=== PATIENT | female | born 1960 | race Caucasian/White ===

== ENCOUNTER 2017-12-05 07:43 | Emergency (ER) | payer BC, SELFPAY ==
[2017-12-05 07:44] VITALS: BP 164/102; PULSE 75; RESP 18; TEMP 36.3; O2SAT 96; BMI 48.0
--- NOTE | 2017-12-05 08:00 | RAD_ITS ---
STUDY: X-RAY - LEFT FOOT CLINICAL: Female, 57 years old. Lateral foot pain TECHNIQUE: 3 view(s) of the foot. COMPARISON: None. FINDINGS: There is a plantar calcaneal spur. There is mild degenerative change in the tibial talar joint. Normal visualized subtalar, talonavicular, calcaneocuboid, tarsal and tarsometatarsal articulations. On the AP view there is a subtle sclerotic appearance of the base of the fifth metatarsal not seen on other views which may represent prior fracture injury. Normal metatarsophalangeal joint of the great toe. Normal tibial and fibular sesamoid bones. Normal interphalangeal joint of the great toe. Normal phalanges of the great toe. Normal second through fifth metatarsophalangeal joints. Normal interphalangeal joints and phalanges of the lesser toes. The soft tissue structures are unremarkable. RAD/Foot min 3 Views IMPRESSION: Degenerative change. No visualized evidence of an acute fracture. Electronically Signed: Elisha Acosta MD at 8:26 EDT Tel , Service support ,
--- NOTE | 2017-12-05 08:05 | ED.VISSUMM ---
- ER Visit Summary Date of Service: 12/05/17 Chief Complaint: Left foot pain History of Present Illness: The patient is a 57 F who presents with left foot pain that began yesterday. Patient states the pain is over the lateral aspect of her left foot. Patient denies any specific trauma or injury. Patient thinks she may have twisted her foot while getting into bed. Patient admits to some swelling over the area. Patient states her pain is worse with movement of her left foot and with weightbearing. Patient states her pain improves with rest. Patient describes her pain as sharp. Patient denies any paresthesias or weakness. Physical Examination: Vital signs are stable except for mildly elevated blood pressure 164/102. Patient is afebrile. Patient is in no acute distress. Musculoskeletal exam reveals tenderness, mild edema, and mild ecchymosis over the dorsal aspect of the left foot over the distal fourth and fifth metatarsals. There is no obvious deformity noted. There is no bony crepitance or step-off. Range of motion was limited in dorsiflexion and plantarflexion of the left foot secondary to pain. Pedal pulses are equal bilaterally. There are no sensory deficits noted. Capillary refill is less than 2 seconds in all digits. The remaining physical exam is within normal limits. Test Results: X-ray of the left foot was obtained. There is no acute fracture noted. There is some mild degenerative changes noted. Emergency Department Course and Treatment: Patient was given a postop shoe. Patient was instructed to ice and elevate the left foot. Patient was instructed to use her walker as needed for help ambulating. Patient was instructed to follow-up with her primary care physician in 5-7 days. Patient understood and was agreeable with the plan. All questions were answered. Disposition: Discharged home Impression: Left foot sprain This note was generated with [employer] dictation software. It may contain incorrect words, spelling, and punctuation that were not noted in review of the chart prior to signing ED Disposition - Plan for ED Patient: Disposition: Home or Assisted Living Chief Complaint: Lower Extremity Injury Diagnosis: Sprain of left foot Instructions: ED Sprain Foot Referrals: Dominguez Vidales MD [Primary Care Provider] -
[2017-12-05 08:45] VITALS: BP 108/74; PULSE 69; RESP 15; O2SAT 98
== END 2017-12-05 08:46 | disposition home or self-care (01) ==
PROVIDERS: Emergency Provider Emergency Medicine; Family Provider Family Medicine; PCP Family Medicine
DX: S93.602A Unspecified sprain of left foot, initial encounter (principal); X58.XXXA Exposure to other specified factors, initial encounter; Y93.9 Activity, unspecified; Y92.9 Unspecified place or not applicable; I10 Essential (primary) hypertension; E11.9 Type 2 diabetes mellitus without complications; G35 Multiple sclerosis; Z79.84 Long term (current) use of oral hypoglycemic drugs; Z79.899 Other long term (current) drug therapy
CPT/HCPCS: 73630; 99283

== ENCOUNTER 2017-12-08 09:10 | Emergency (ER) | payer BC, SELFPAY ==
[2017-12-08 09:10] VITALS: BP 135/106; PULSE 84; RESP 17; TEMP 36.8; O2SAT 96; BMI 48.0
[2017-12-08 09:47] LABS: Erythrocyte Sedimentation Rate 33 mm/hr (0-30)
[2017-12-08 09:49] LABS: Absolute Lymphocyte Count 2.21 X10^3/ul (0.83-4.51); Absolute Neutrophil Count 6.9 X10^3/uL (2.0-7.7); Basophil# 0.04 X10^3/uL; Basophil% 0.4 % (0-1); Eosinophil# 0.19 X10^3/uL; Eosinophils% 1.9 % (0-5); Hematocrit 43.6 % (37-47); Hemoglobin 14.5 g/dl (12.0-15.0); Lymphocyte # 2.21 X10^3/ul (4.0); Lymphocyte % 22.2 % (19-41); Mean Corp Hgb Conc 33.3 g/gl (32-36); Mean Corpuscular Hgb 32.7 pg (27.0-32.0); Mean Corpuscular Volume 98.2 fL (81-99); Mean Platelet Vol. 11.2 fl (6.2-12.0); Monocyte# 0.61 X10^3/uL; Monocyte% 6.1 % (0-10); Neutrophil # 6.88 X10^3/uL (2.7-7.7); Neutrophil % 69.3 % (47-70); Platelet Count 361 K/mm3 (150-450); RBC Distribution Width CV 13.8 % (11.6-14.6); RBC Distribution Width SD 49.4 fl (35.1-43.9); Red Blood Count 4.44 M/mm3 (4.2-5.4); White Blood Count 9.9 K/mm3 (4.4-11.0)
[2017-12-08 09:50] LABS: POSITIVE COUNT NO; POSITIVE DIFFERENTIAL NO; POSITIVE MORPHOLOGY NO
[2017-12-08 09:55] LABS: Anion Gap 9 (5-15); BUN 13 mg/dL (7-18); BUN/Creat Ratio 13.5 RATIO (10-20); Calcium,Total 9.2 mg/dL (8.5-10.1); Chloride 100 mmol/L (98-107); Creatinine, Serum 0.96 mg/dL (0.55-1.02); EST Glomerular Filtration Rate 64 mL/min (>60); Est Glom Filt Rate - Afr Amer 77 mL/min (>60); Glucose 329 mg/dL (74-106); Potassium 4.3 mmol/L (3.5-5.1); Sodium Level 137 mmol/L (136-145); Uric Acid 6.8 mg/dL (2.6-6.0)
--- NOTE | 2017-12-08 10:25 | ED.VISSUMM ---
- ER Visit Summary Date of Service: 12/08/17 Chief Complaint: [Left foot pain] History of Present Illness: The patient is a 57 F [presents the emergency department left foot pain ?5 days. Patient was seen in the emergency department 4 days ago and had x-rays which were negative for fractures and showed some arthritic changes. Patient denies any trauma to her foot. Patient was seen 3 days ago by her primary care physician and thought the foot looked a little bit red and they start her on empirically on doxycycline for possible cellulitis. Patient states that today she noticed increased redness and swelling and does not feel like the antibiotics have made any difference and she was referred to the emergency department for possible IV antibiotics by her primary care physician. Patient denies any fevers at home. Patient is a diabetic and has a history of MS.] patient also had a venous duplex of the left lower extremity that was negative for DVT. Physical Examination: [HEENT-PERRLA, EOMI. Cranial nerves II through XII grossly intact. TMs clear. Mucous membranes moist. No adenopathy. Cardiovascular-regular rate and rhythm without murmur or ectopy Lungs-clear to auscultation, chest wall stable without crepitus or subcu emphysema Abdomen-normoactive bowel sounds, soft, nontender, no rebound or rigidity, no peritoneal signs. Extremities-intact ?4, normal range of motion, normal pulses. Left foot-patient has diffuse soft tissue swelling and edema especially over the dorsum of the foot. Patient has some faint erythema noted to the lateral aspect of the foot now extending to the medial aspect of the midfoot. Patient does have some small effusion of the ankle joint itself and some tenderness along the ankle joint as well. Patient has normal pulses. Patient has normal range of motion of all digits. There is no lymphangitic streaking. There is some warmth noted to the dorsum of the foot. Test Results: [CBC with differential obtained showed a normal white count of 9.9, hemoglobin 14, hematocrit 44, platelets 361. Chemistries unremarkable. Glucose was 329. Sed rate was elevated 33. C-reactive protein was 86. Uric acid was elevated 6.8.] Emergency Department Course and Treatment: [Case was discussed with podiatry on-call Dr. Lopez. At this point I suspect patient likely has an inflammatory arthropathy such as gout and am not convinced this is a cellulitic or infectious process. Dr. Lopez in agreement at this time and will start patient on steroids and have patient follow-up with his office tomorrow. I also discussed case with Dr. Vidales who is the patient's primary care physician and he too agrees with plan as he to obtain a uric acid level yesterday that was elevated at 7.2.] Treatment Plan: [Prednisone and follow-up with podiatry]. Patient advised to finish out her doxycycline prescription. Disposition: [Discharged home in stable condition] Impression: [Inflammatory arthropathy left foot] This note was generated with [employer] dictation software. It may contain incorrect words, spelling, and punctuation that were not noted in review of the chart prior to signing ED Disposition - Plan for ED Patient: Chief Complaint: Lower Extremity Injury Referrals: Dominguez Vidales MD [Primary Care Provider] -
--- NOTE | 2017-12-08 10:28 | ED.DEP ---
ED Disposition - Plan for ED Patient: Chief Complaint: Lower Extremity Injury Instructions: ED Arthritis Gout Prescriptions: Hydrocodone Bitart/Apap 5-325 [Ackerly 5MG-325MG] 1 tab PO Q4H PRN PRN 2 Days #10 tab PRN Reason: Pain Prednisone [Deltasone] 20 mg PO BID #10 tab Referrals: Dominguez Vidales MD [Primary Care Provider] - Raphael Lopez DPM [STAFF PHYSICIAN] - 1 Day for another exam
[2017-12-08] MEDS: predniSONE 20 MG Tablet 40 MG PO (10:34)
[2017-12-08 10:38] VITALS: BP 159/77; PULSE 77; RESP 14
== END 2017-12-08 10:41 | disposition home or self-care (01) ==
LOC: ED 09:52
PROVIDERS: Emergency Provider Emergency Medicine; Family Provider Family Medicine; PCP Family Medicine
DX: M13.872 Other specified arthritis, left ankle and foot (principal); E11.9 Type 2 diabetes mellitus without complications; G35 Multiple sclerosis; I10 Essential (primary) hypertension; Z79.84 Long term (current) use of oral hypoglycemic drugs; Z79.899 Other long term (current) drug therapy
CPT/HCPCS: 80048; 84550; 85025; 85652; 86140; 99284; A4216

== ENCOUNTER 2018-09-06 04:26 | Emergency (ER) | payer BC, MEDICAID, SELFPAY ==
[2018-09-06 04:27] VITALS: BP 189/94; PULSE 92; RESP 18; TEMP 37.2; O2SAT 93; BMI 48.4
[2018-09-06] MEDS: HYDROcodone Bitartrate/Apap 5/325 Tablet PO (04:40)
--- NOTE | 2018-09-06 04:40 | ED.DCSUM_ITS ---
History of Present Illness Chief Complaint: Ear Problem Informant: Patient Narrative: Patient presents with left ear pain since yesterday. It hurts to hear out of it. Occasionally she gets some vertigo. She is been dealing with an upper respiratory infection for the last week. Comes in for further evaluation of her ear. No home treatment. Current severity is moderate. Past Medical History - Allergies and Home Meds Allergies/Adverse Reactions: Allergies amoxicillin trihydrate [From Augmentin] Allergy (Verified 09/06/18 04:31) Rash diflunisal [From Dolobid] Allergy (Verified 09/06/18 04:31) Rash moxifloxacin HCl [From Avelox] Allergy (Verified 09/06/18 04:31) Rash potassium clavulanate [From Augmentin] Allergy (Verified 09/06/18 04:31) Rash sulfamethoxazole [From Bactrim] Allergy (Verified 09/06/18 04:31) Rash trimethoprim [From Bactrim] Allergy (Verified 09/06/18 04:31) Rash Primary Care Physician: Dominguez Vidales MD [Primary Care Provider] - Prior records reviewed: Yes Past Medical History: - - Reviewed Surgical History: noncontributory Lives: Spouse/ Significant Other Smoking Status: Never smoker Alcohol: None Drugs: None Review of Systems General: Denies: Chills, Fever, Sweats Eyes: Denies: Visual changes - bilaterally, Diplopia ENT: Reports: Left ear pain, Rhinorrhea, Sore throat Cardiovascular: Denies: Chest pain, Palpitations Respiratory: Reports: Cough. Denies: Dyspnea, Dyspnea on exertion Gastrointestinal: Denies: Abdominal pain, Nausea, Vomiting, Diarrhea, Melena, Hematochezia Genitourinary: Denies: Dysuria, Hematuria, Frequency Musculoskeletal: Denies: Back pain, Extremity Pain Skin: Denies: Rash, Wounds Neurological: Denies: Headache, Weakness, Numbness Physical Exam Vital Signs/Narrative: Vital Signs Temp Pulse Resp BP Pulse Ox 09/06/18 04:27 99 F 92 18 189/94 H 93 General: Well nourished, Well developed, No Acute Distress Head: Normocephalic, Atraumatic Eyes: Perrl, EOMI ENT: Moist mucous membranes, No rhinorrhea, - - Left TM with dullness redness and decreased landmarks consistent with acute otitis media Neck: Supple, Nontender Cardiovascular: Regular rate, Regular rhythm, No murmurs Respiratory: No distress, CTA bilaterally, Chest nontender Abdomen: Soft, Nontender, Nondistended, Normal bowel sounds Back: Nontender, Normal Inspection Extremities: Nontender, No edema Skin: Normal color, No rash Neurological: Alert, Oriented x3, Cranial nerves II-XII grossly intact, Normal Strength, Normal Sensation Psychological: Normal affect, Normal Mood Diagnostic/Tx/Re-eval - Medical Decision Making Given a prescription for Omnicef. Given 1 [place]. We will follow-up as an outpatient. At this time she has acute otitis media on top of the upper res piratory infection ED Disposition - Plan for ED Patient: Diagnosis: Acute otitis media, Upper respiratory infection Instructions: ED Otitis Media Acute Adult Prescriptions: Cefdinir [Omnicef [equiv]] 300 mg PO Q12H #14 cap Referrals: Dominguez Vidales MD [Primary Care Provider] -
[2018-09-06 04:44] VITALS: BP 181/91; PULSE 82; RESP 20; O2SAT 95
== END 2018-09-06 04:49 | disposition home or self-care (01) ==
LOC: ED 04:47
PROVIDERS: Emergency Provider Emergency Medicine; Family Provider Family Medicine; PCP Family Medicine
DX: H66.92 Otitis media, unspecified, left ear (principal); J06.9 Acute upper respiratory infection, unspecified
CPT/HCPCS: 99283

== ENCOUNTER → 2019-08-22 14:26 | Outpatient (CLI) | payer OTHER, SELFPAY ==
[2019-08-22 15:26] LABS: Hematocrit 44.7 % (37-47); Hemoglobin 15.2 g/dL (12.0-15.0); Mean Corpuscular Hgb 32.3 pg (27.0-32.0); Mean Corpuscular Volume 94.9 fL (81-99); Mean Platelet Vol. 11.6 fl (6.2-12.0); Platelet Count 357 K/mm3 (150-450); RBC Distribution Width CV 12.6 % (11.6-14.6); RBC Distribution Width SD 43.7 fl (35.1-43.9); Red Blood Count 4.71 M/mm3 (4.2-5.4); White Blood Count 9.1 K/mm3 (4.4-11.0)
[2019-08-22 15:51] LABS: Microalbumin,Random Urine 19.5 mg/L (NO RANGE EST.); Microalbumin:Creatinine Ratio 37.4 mg/g CRE (<30 mg/g CRE)
[2019-08-22 15:59] LABS: Vitamin D,25 Hydroxy 74.9 ng/mL
[2019-08-22 16:24] LABS: ALB/GLOB Ratio 0.8 RATIO (0.9-2.4); AST(SGOT) 25 U/L (15-37); Alanine Aminotransfer ALT/SGPT 32 U/L (13-56); Albumin, Serum 3.2 g/dL (3.2-5.0); Alkaline Phosphatase 89 U/L (45-117); Anion Gap 6 (5-15); BUN 9 mg/dL (7-18); Chloride 100 mmol/L (98-107); Cholesterol 183 mg/dL (200); EST Glomerular Filtration Rate 61 mL/min (>60); Est Glom Filt Rate - Afr Amer 74 mL/min (>60); Globulin 4.1 g/dL (2.2-4.2); Glucose 366 mg/dL (74-106); High Density Lipoprotein 61 mg/dL; Potassium 3.9 mmol/L (3.5-5.1); Protein, Total 7.3 g/dL (6.4-8.2); Sodium Level 134 mmol/L (136-145); Triglycerides 235 mg/dL; Very Low Density Lipoprotein 47 mg/dL (5-40)
[2019-08-22 19:19] LABS: Hemoglobin A1c 12.5 % (4.2-6.3)
[2019-08-23 08:37] LABS: PTHIN 21.3 pg/mL (18.4-80.1)
== END ==
PROVIDERS: PCP Family Medicine; Referring Provider Physician Assistant; Visit Provider Physician Assistant
DX: E78.2 Mixed hyperlipidemia (principal); E11.9 Type 2 diabetes mellitus without complications; E55.9 Vitamin D deficiency, unspecified; E83.52 Hypercalcemia; Z79.899 Other long term (current) drug therapy
CPT/HCPCS: 36415; 80053; 80061; 82043; 82306; 82330; 82570; 83036; 83970; 85027

== ENCOUNTER 2020-07-11 15:55 | Outpatient (RCR) | payer OTHER, SELFPAY ==
[2020-07-11] MEDS: COVID-19 VACC, MRNA(PFIZER)/PF 30 MCG/0.3 ML SYRINGE IM (12:46)
[2020-08-01] MEDS: COVID-19 VACC, MRNA(PFIZER)/PF 30 MCG/0.3 ML SYRINGE IM (12:27)
== END 2020-07-11 23:59 ==
LOC: IMMUN 15:55
PROVIDERS: PCP Family Medicine; Referring Provider Family Medicine; Visit Provider Family Medicine
DX: Z23 Encounter for immunization (principal)
CPT/HCPCS: 0001A; 0002A; 91300

== ENCOUNTER 2021-06-16 08:50 | Outpatient (CLI) | payer BC, SELFPAY ==
[2021-06-16 09:11] LABS: Absolute Lymphocyte Count 2.96 X10^3/uL (0.83-4.51); Absolute Neutrophil Count 5.1 X10^3/uL (2.0-7.7); Basophil# 0.07 X10^3/uL; Basophil% 0.8 % (0-1); Eosinophil# 0.29 X10^3/uL; Eosinophils% 3.2 % (0-5); Hematocrit 45.4 % (37-47); Hemoglobin 15.1 g/dL (12.0-15.0); Lymphocyte # 2.96 X10^3/ul (0.83-4.51); Lymphocyte % 32.9 % (19-41); Mean Corp Hgb Conc 33.3 g/dL (32-36); Mean Corpuscular Hgb 31.7 pg (27.0-32.0); Mean Corpuscular Volume 95.4 fL (81-99); Mean Platelet Vol. 11.5 fl (6.2-12.0); Monocyte# 0.61 X10^3/uL; Monocyte% 6.8 % (0-10); NRBC Flagged by Analyzer 0 % (0-5); Neutrophil # 5.06 X10^3/uL (2.7-7.7); Neutrophil % 56.1 % (47-70); Platelet Count 366 K/mm3 (150-450); RBC Distribution Width CV 13.2 % (11.6-14.6); RBC Distribution Width SD 46.6 fl (35.1-43.9); Red Blood Count 4.76 M/mm3 (4.2-5.4)
[2021-06-16 09:35] LABS: ALB/GLOB Ratio 0.8 RATIO (0.9-2.4); AST(SGOT) 17 U/L (15-37); Alanine Aminotransfer ALT/SGPT 28 U/L (13-56); Albumin, Serum 3.7 g/dL (3.2-5.0); Alkaline Phosphatase 96 U/L (45-117); Anion Gap 6 (5-15); BUN 15 mg/dL (7-18); BUN/Creat Ratio 16.1 RATIO (10-20); Calcium,Total 9.2 mg/dL (8.5-10.1); Chloride 100 mmol/L (98-107); Cholesterol 180 mg/dL (200); Creatinine, Serum 0.93 mg/dL (0.55-1.02); EST Glomerular Filtration Rate 65 mL/min (>60); Est Glom Filt Rate - Afr Amer 79 mL/min (>60); Globulin 4.5 g/dL (2.2-4.2); Glucose 336 mg/dL (74-106); High Density Lipoprotein 78 mg/dL; Potassium 4.1 mmol/L (3.5-5.1); Protein, Total 8.2 g/dL (6.4-8.2); Sodium Level 136 mmol/L (136-145); Triglycerides 156 mg/dL; Very Low Density Lipoprotein 31 mg/dL (5-40)
[2021-06-16 11:01] LABS: Hemoglobin A1c 12.3 % (3.8-5.6)
== END 2021-06-16 23:59 | disposition home or self-care (01) ==
PROVIDERS: PCP Family Medicine; Referring Provider Physician Assistant; Visit Provider Physician Assistant
DX: I10 Essential (primary) hypertension (principal); E11.65 Type 2 diabetes mellitus with hyperglycemia; E78.2 Mixed hyperlipidemia; E83.52 Hypercalcemia
CPT/HCPCS: 36415; 80053; 80061; 83036; 85025

== ENCOUNTER → 2021-11-24 | Outpatient (CLI) | payer BC, SELFPAY ==
[2021-11-24 09:05] LABS: Absolute Lymphocyte Count 3.07 X10^3/uL (0.83-4.51); Basophil# 0.06 X10^3/uL; Basophil% 0.6 % (0-1); Hematocrit 47.6 % (37-47); Hemoglobin 16.3 g/dL (12.0-15.0); Lymphocyte # 3.07 X10^3/ul (0.83-4.51); Lymphocyte % 30.8 % (19-41); Mean Corp Hgb Conc 34.2 g/dL (32-36); Mean Corpuscular Hgb 32.1 pg (27.0-32.0); Mean Corpuscular Volume 93.9 fL (81-99); Mean Platelet Vol. 11.7 fl (6.2-12.0); Monocyte# 0.66 X10^3/uL; Monocyte% 6.6 % (0-10); NRBC Flagged by Analyzer 0 % (0-5); Neutrophil # 6.02 X10^3/uL (2.7-7.7); Neutrophil % 60.5 % (47-70); Platelet Count 357 K/mm3 (150-450); RBC Distribution Width CV 12.5 % (11.6-14.6); RBC Distribution Width SD 43.1 fl (35.1-43.9); Red Blood Count 5.07 M/mm3 (4.2-5.4)
[2021-11-24 09:40] LABS: Microalbumin,Random Urine 82.4 mg/L (NO RANGE EST.); Microalbumin:Creatinine Ratio 137.8 mg/g CRE (<30 mg/g CRE)
[2021-11-24 09:47] LABS: Vitamin D,25 Hydroxy 89.1 ng/mL
[2021-11-24 09:54] LABS: Hemoglobin A1c > 14.0 % (3.8-5.6)
[2021-11-24 10:05] LABS: ALB/GLOB Ratio 0.9 RATIO (0.9-2.4); AST(SGOT) 13 U/L (15-37); Alanine Aminotransfer ALT/SGPT 22 U/L (13-56); Albumin, Serum 3.6 g/dL (3.2-5.0); Alkaline Phosphatase 81 U/L (45-117); Anion Gap 5 (5-15); BUN 28 mg/dL (7-18); BUN/Creat Ratio 23.9 RATIO (10-20); Calcium,Total 9.7 mg/dL (8.5-10.1); Chloride 99 mmol/L (98-107); Creatinine, Serum 1.17 mg/dL (0.55-1.02); EST Glomerular Filtration Rate 50 mL/min (>60); Est Glom Filt Rate - Afr Amer 61 mL/min (>60); Globulin 4.2 g/dL (2.2-4.2); Glucose 495 mg/dL (74-106); Potassium 4.4 mmol/L (3.5-5.1); Protein, Total 7.8 g/dL (6.4-8.2); Sodium Level 133 mmol/L (136-145)
== END | disposition home or self-care (01) ==
LOC: PAVLAB 08:41
PROVIDERS: PCP Family Medicine; Visit Provider Family Medicine
DX: G35 Multiple sclerosis (principal); E11.9 Type 2 diabetes mellitus without complications; H53.2 Diplopia; E55.9 Vitamin D deficiency, unspecified
CPT/HCPCS: 36415; 80053; 82043; 82306; 82570; 83036; 85025

== ENCOUNTER 2022-03-07 16:48 | Emergency (ER) | payer MEDICARE, SELFPAY ==
[2022-03-07 16:50] VITALS: BP 178/80; PULSE 92; RESP 16; TEMP 36.6; O2SAT 99; BMI 41.1
--- NOTE | 2022-03-07 17:41 | ED.VIS.BACK ---
HPI History of Present Illness Chief Complaint: Back Informant: patient Narrative Narrative: Patient states for the last 2 or so weeks she has been having pain in her right buttock that will sometimes shoot down the posterior lateral aspect of her right leg to right about her knee. She states this is typical of her sciatica. She has not had any fall or acute trauma. No fevers or chills. No cancer. She is actually not having pain in her back even. No bowel or bladder dysfunction. No weakness. She states sitting is generally a good position. She can only lay down and get sleep for about 2 hours though. She states this started after she has been helping her . He had a distal femur fracture. She has been using a physical therapy strap to help pull him up out of bed, seating position and get up the steps to their house. She states this has been a lot of activity for her. She also did some work in the garden that aggravated this. No numbness tingling weakness bowel or bladder dysfunction. PFSH PFSH Home Medications Cholecalciferol (Vitamin D3) [Vitamin D3] 10,000 units PO DAILY 02/22/15 [History Last Taken 12/08/17] atenolol 100 mg tablet 100 mg PO DAILY 02/22/15 [History Last Taken 12/08/17] lisinopril 5 mg tablet 40 mg PO DAILY 02/22/15 [History Last Taken 12/08/17] metformin 500 mg tablet 1,000 mg PO BID 02/22/15 [History Last Taken 12/08/17] cefdinir 300 mg capsule 300 mg PO Q12H #14 caps 09/06/18 [Rx Last Taken Unknown] liraglutide 0.6 mg/0.1 mL (18 mg/3 mL) subcutaneous pen injector (Victoza 2-Miguel) 1.8 ml SQ DAILY 09/06/18 [History Last Taken Unknown] oxycodone-acetaminophen 5 mg-325 mg tablet (Percocet) 1 tab PO Q6H PRN pain 3 days #10 tabs 03/07/22 [Rx Last Taken Unknown] prednisone 20 mg tablet 60 mg PO DAILY #15 tabs 03/07/22 [Rx Last Taken Unknown] Allergy/AdvReac Type Severity Reaction Status Date / Time amoxicillin trihydrate Allergy Rash Verified 03/07/22 16:50 [From Augmentin] diflunisal [From Dolobid] Allergy Rash Verified 03/07/22 16:50 moxifloxacin HCl Allergy Rash Verified 03/07/22 16:50 [From Avelox] potassium clavulanate Allergy Rash Verified 03/07/22 16:50 [From Augmentin] sulfamethoxazole Allergy Rash Verified 03/07/22 16:50 [From Bactrim] trimethoprim [From Bactrim] Allergy Rash Verified 03/07/22 16:50 Social History Smoking Status: Never smoker ROS ROS ED Constitutional Constitutional ED: Denies chills or fever(s) Eyes Eyes: Reports other Details: Patient states her MS flares usually involve vision changes and she is not having those now. ; Denies blurry vision ENT ENT ED: Denies sore throat Cardiovascular Cardiovascular: Denies palpitations Respiratory/Chest Respiratory/Chest: Denies dyspnea Gastrointestinal Gastrointestinal: Reports other Details: No incontinence. ; Denies abdominal pain, constipation, diarrhea, melena, nausea or vomiting Genitourinary Genitourinary ED: Reports other Details: No incontinence or any change in urination or retention. ; Denies dysuria, hematuria or urinary frequency Musculoskeletal Musculoskeletal: Reports other Details: No lumbar pain. See history of present illness. ; Denies back pain Integumentary Denies Abrasions Neurologic Neurologic: Reports other Details: See HPI ; Denies headache(s), paresthesias or weakness Endocrine Endocrinology: Denies polydipsia or polyuria Hematologic/Lymphatic Hematologic/Lymphatic: Denies easy bleeding or easy bruising Allergic/Immunologic Allergic/Immunologic ED: Denies urticaria EXAM Physical Exam Const Vital Signs: 03/07/22 16:50 Temperature 97.8 F Temperature Source Temporal Pulse Rate 92 Respiratory Rate 16 Blood Pressure 178/80 H Blood Pressure Mean 112 Pulse Ox 99 Oxygen Delivery Method Room Air Positive well nourished and well developed General Appearance ED: well developed and NAD HEENT Reports moist mucous membranes Eyes General Eye ED: Negative for pale conjunctiva or scleral icterus Resp normal respiratory effort and clear to auscultation bilaterally Cardio regular rate and regular rhythm GI normal to inspection, nondistended, normoactive bowel sounds GI Narrative: No abdominal tenderness. No mass. No change in symptoms with palpation. Narrative: No CVA tenderness. Back/Spine normal to inspection Back/Spine Narrative: No back or paraspinal tenderness. She does have right-sided buttock tenderness and sciatic notch. Extremity normal to inspection Extremity Narrative: Patient states she has been getting a little swelling in her feet and ankles. They do look a little full but they are not pitting. This is likely due to sitting upright in a chair much more than normal. There is no swelling or tenderness up into the calf. No cords. She does have pain with straight leg raise on the right. It radiates down the back of her thigh to the knee but not lower. Reflexes and sensation and strength are intact distally. Neuro no sensory deficits noted Sensorium / Orientation: alert Motor Exam: strength 5/5 throughout Psych mental status grossly normal Skin no rashes or lesions noted and no wounds Trauma: Negative for abrasion MDM MDM MDM Narrative Medical decision making narrative: We discussed options of x-rays. I do not think these are needed. She has a couple weeks of pain that is reproduced with certain motions and positions. It radiates down the back. She has a history of sciatica. She is not getting good sleep. She still has to help her at the house although the in the next 2 weeks he will be back to independent duty and actions. She has tolerated steroids in the past for her MS. I will try a short burst of steroids to see if that helps. I will write her for pain meds mostly for using at night. We discussed follow-up and return Discharge Plan Triage Chief Complaint: Back ED Provider: Isai Green Dx/Rx/DC Orders Clinical Impression: Right sided sciatica Instructions: ED Sciatica Prescriptions: New prednisone 20 mg tablet 60 mg PO DAILY Qty: 15 0RF oxycodone-acetaminophen [Percocet] 5-325 mg tablet 1 tab PO Q6H PRN (Reason: pain) 3 Days Qty: 10 0RF No Action metformin 500 MG tablet 1,000 mg PO BID atenolol 100 MG tablet 100 mg PO DAILY lisinopril 5 MG tablet 40 mg PO DAILY Cholecalciferol (Vitamin D3) [Vitamin D3] 5,000 UNIT capsule 10,000 units PO DAILY Victoza 2-Miguel 0.6 MG/0.1 ML pen injector 1.8 ml SQ DAILY Label Comments: Inject 1.8 mg subcutaneously once daily. cefdinir 300 MG capsule 300 mg PO Q12H Qty: 14 0RF Primary Care Provider: Dominguez Vidales Referrals: Dominguez Vidales MD [Primary Care Provider] - 3-5 Days if not improving Disposition Disposition: Home, Self Care
== END 2022-03-07 18:58 | disposition home or self-care (01) ==
PROVIDERS: Emergency Provider Emergency Medicine; PCP Family Medicine; Visit Provider Emergency Medicine
DX: M54.31 Sciatica, right side (principal); Z79.84 Long term (current) use of oral hypoglycemic drugs; Z79.899 Other long term (current) drug therapy
CPT/HCPCS: 99281; 99282

== ENCOUNTER → 2022-04-02 | Outpatient (CLI) | payer MEDICARE, SELFPAY ==
--- NOTE | 2022-04-02 11:40 | RAD_ITS ---
STUDY: X-RAY - LUMBOSACRAL SPINE REASON FOR EXAM: Female, 61 years old. RADICULOPATHY TECHNIQUE: 7 view(s) of the lumbosacral spine were obtained. COMPARISON: None FINDINGS: Normal lumbar lordosis. There is no substantial scoliosis. Grade 1 L4-5 anterolisthesis does not significantly change in flexion or extension. There is multilevel endplate spondylosis of the lumbar vertebrae. There is multi-level degenerative disc disease with multi-level disc space narrowing. Normal bilateral sacral ala, sacroiliac joints, and visualized sacrum. Normal visualized soft tissue structures. RAD/L/S Spine Bending Flex/Ext IMPRESSION: Grade 1 L5 anterolisthesis without finding of dynamic instability. Multilevel degenerative disc and endplate disease. Electronically Signed: Deepak Starkey MD at 19:35 EST ,
== END | disposition home or self-care (01) ==
LOC: RAD 11:34
PROVIDERS: PCP Family Medicine; Referring Provider Psychiatry & Neurology Neurology; Visit Provider Psychiatry & Neurology Neurology
DX: M54.41 Lumbago with sciatica, right side (principal); M54.16 Radiculopathy, lumbar region
CPT/HCPCS: 72120

== ENCOUNTER 2022-07-01 03:58 | Emergency (ER) | payer MEDICARE, SELFPAY ==
[2022-07-01 04:00] VITALS: BP 184/94; PULSE 77; RESP 15; TEMP 35.9; O2SAT 99; BMI 41.6
--- NOTE | 2022-07-01 05:20 | EX.ED.DYSGE1 ---
HPI History of Present Illness Chief Complaint: Other, Pain/Inj Narrative Narrative: Patient is a 62-year-old female who has a history of hypertension and diabetes. She states she has been dealing with right hip pain for about 5 months. She states she was recently told this was sciatica. She states that she typically will use a walker and cane to help with ambulation. However a few days ago she felt much better and was able to go out and walk around without any type of assistance. She states the next day she felt pain in her right hip that was worse with any type of weightbearing and improved while at rest. She states that now she has pain whether she is weightbearing or even just sitting. She denies any trauma any overlying skin discoloration or rashes and any numbness or tingling but states she has been trying [id number] medication without symptom improvement and therefore comes in for evaluation. [facility] Medical History (Updated 07/01/22 @ 05:[address] Tomás Lester, DO) Diabetes Hypertension Multiple sclerosis Home Medications Cholecalciferol (Vitamin D3) [Vitamin D3] 10,000 units PO DAILY 02/22/15 [History Last Taken 12/08/17] atenolol 100 mg tablet 100 mg PO DAILY 02/22/15 [History Last Taken 12/08/17] lisinopril 5 mg tablet 40 mg PO DAILY 02/22/15 [History Last Taken 12/08/17] metformin 500 mg tablet 1,000 mg PO BID 02/22/15 [History Last Taken 12/08/17] glimepiride 4 mg tablet 4 mg PO BID 07/01/22 [History Last Taken Unknown] hydroxyzine pamoate 25 mg capsule 25 mg PO DAILY 07/01/22 [History Last Taken Unknown] insulin detemir U-100 100 unit/mL (3 mL) subcutaneous pen (Levemir FlexPen) 40 unit subcut QHS 07/01/22 [History Last Taken Unknown] methocarbamol 500 mg tablet 500 mg PO 4X/DAY PRN PRN Muscle pain/spasm #40 tabs 07/01/22 [Rx Last Taken Unknown] oxycodone-acetaminophen 5 mg-325 mg tablet (Endocet) 1 tab PO Q6H PRN pain 3 days #12 tabs 07/01/22 [Rx Last Taken Unknown] pravastatin 20 mg tablet 20 mg PO QHS 07/01/22 [History Last Taken Unknown] prednisone 20 mg tablet 40 mg PO DAILY 5 days #10 tabs 07/01/22 [Rx Last Taken Unknown] sertraline 50 mg tablet 50 mg PO QHS 07/01/22 [History Last Taken Unknown] tizanidine 2 mg tablet 2 mg PO TID 07/01/22 [History Last Taken Unknown] Allergy/AdvReac Type Severity Reaction Status Date / Time amoxicillin trihydrate Allergy Rash Verified 03/07/22 16:50 [From Augmentin] diflunisal [From Dolobid] Allergy Rash Verified 07/01/22 04:05 moxifloxacin HCl Allergy Rash Verified 07/01/22 04:05 [From Avelox] potassium clavulanate Allergy Rash Verified 07/01/22 04:05 [From Augmentin] sulfamethoxazole Allergy Rash Verified 07/01/22 04:05 [From Bactrim] trimethoprim [From Bactrim] Allergy Rash Verified 07/01/22 04:05 Social History Smoking Status: Never smoker ROS ROS ED Constitutional Constitutional ED: Denies chills or fever(s) ENT ENT ED: Denies sore throat Cardiovascular Cardiovascular: Denies chest pain Respiratory/Chest Respiratory/Chest: Denies cough or dyspnea Gastrointestinal Gastrointestinal: Denies abdominal pain, diarrhea, nausea or vomiting Genitourinary Genitourinary ED: Denies dysuria or hematuria Musculoskeletal Musculoskeletal: Reports other Details: Positive right hip pain ; Denies back pain or myalgias Integumentary Denies Abrasions or rash Neurologic Neurologic: Denies headache(s) or paresthesias Hematologic/Lymphatic Hematologic/Lymphatic: Denies easy bleeding or easy bruising EXAM Physical Exam Const Vital Signs: 07/01/22 04:00 Temperature 96.7 F L Temperature Source Temporal Pulse Rate 77 Respiratory Rate 15 Blood Pressure 184/94 H Blood Pressure Mean 124 Pulse Ox 99 Oxygen Delivery Method Room Air Positive well nourished, well developed and obese General Appearance ED: well developed Nutritional Appearance: obese Eyes PERRL and EOMs intact bilaterally Neck supple Resp normal respiratory effort and clear to auscultation bilaterally Cardio regular rate and regular rhythm Rate: other Other Details: Radial pulses are plus 2 out of 4 bilaterally are equal and symmetric GI normal to inspection, nondistended, normoactive bowel sounds, non-tender, non-distended and no masses GI Narrative: No voluntary guarding or rigidity no pulsatile mass Auscultation: normoactive bowel sounds Palpation: soft Back/Spine Back/Spine Narrative: No bony deformity or step-off of the thoracic or lumbar spine no midline pain with palpation. There is pain on palpation in the right sacroiliac joint. No saddle anesthesia. Negative straight leg raise. No clonus or Babinski. Patellar reflexes are plus 1 out of 4 bilaterally. Extremity Extremity Narrative: There is pain with palpation over top the right greater trochanter region without over the line soft tissue changes to suggest trauma or infection. No bony deformity or joint effusion noted either Neuro oriented x3 and CN's II-XII intact bilaterally Sensorium / Orientation: alert Psych mental status grossly normal Skin no rashes or lesions noted MDM MDM MDM Narrative Medical decision making narrative: Patient presented to the ER mildly hypertensive otherwise with stable vitals. She states she has had this pain for multiple months and that it improved and then worsened after her day of physical activity without using her assistive device. By exam she does not have overlying soft tissue changes to suggest infection such as cellulitis or abscess. As she is afebrile I do not feel that there is concern for septic joint either. She has no signs of cauda equina or epidural abscess. At this time I do feel symptoms are multifactorial most likely related to her obesity as well as developing right greater trochanteric bursitis and mild derangement to her sacroiliac joint. We discussed possible x-rays of her hip and even a CT of her low back to look for radiculopathy/nerve impingement. Patient states she had an x-ray done by her family doctor not too long ago and reportedly it was normal. As there is no radiation of the pain nor the fact that it does not follow dermatomal pattern goes against radiculopathy. Therefore I do not feel there is need for imaging studies at this time. Patient will be given symptomatic care and will follow-up with her orthopedic surgeon to discuss need for further testing or treatment options. Plan of care was discussed with the patient and and both are agreeable to it. History & Record Review Discussion w/independent historian: Patient and Significant other Discharge Plan Triage Chief Complaint: Other, Pain/Inj ED Provider: Tomás Lester Dx/Rx/DC Orders Clinical Impression: Greater trochanteric bursitis of right hip, Sacroiliac joint dysfunction Instructions: Anatomy of the Sacroiliac Joint, ED Bursitis Prescriptions: New oxycodone-acetaminophen [Endocet] 5-325 mg tablet 1 tab PO Q6H PRN (Reason: pain) 3 Days Qty: 12 0RF prednisone 20 mg tablet 40 mg PO DAILY 5 Days Qty: 10 0RF methocarbamol 500 mg tablet 500 mg PO 4X/DAY PRN PRN (Reason: Muscle pain/spasm) Qty: 40 0RF No Action metformin 500 MG tablet 1,000 mg PO BID atenolol 100 MG tablet 100 mg PO DAILY lisinopril 5 MG tablet 40 mg PO DAILY Cholecalciferol (Vitamin D3) [Vitamin D3] 5,000 UNIT capsule 10,000 units PO DAILY glimepiride 4 mg Tablet 4 mg PO BID hydroxyzine pamoate 25 mg capsule 25 mg PO DAILY Label Comments: TAKE 1 CAPSULE BY MOUTH THREE TIMES DAILY NEEDED FOR ANXIETY. sertraline 50 mg tablet 50 mg PO QHS Label Comments: TAKE 1/2 TAB BY MOUTH ONCE DAILY FOR ONE WEEK THEN 1 TAB ONCE A DAY pravastatin 20 mg tablet 20 mg PO QHS Levemir FlexPen 100 unit/mL (3 mL) insulin pen 40 unit SUBCUT QHS Label Comments: INJECT 30 UNITSCSUBCUTANEOUSLY DAILY AT BEDTIME tizanidine 2 mg tablet 2 mg PO TID Label Comments: TAKE 1 TAB BY MOUTH IN THE MORNING, 1 TAB AT NOON, AND 1 TAB BEFORE BEDTIME FOR 30 DAYS Primary Care Provider: Dominguez Vidales Referrals: Dominguez Vidales MD [Primary Care Provider] - Activity Restrictions/Additional Instructions: Please follow-up with the orthopedic surgeon to discuss possible joint injections and or further work-up such as CAT scan or MRI. I believe your symptoms are related to a combination of of bursitis along with sacroiliac joint dysfunction and possible spasm of your piriformis muscle. Take the medication as directed to help control the symptoms and return to the ER should you have any further concerns Disposition Disposition: Home, Self Care Discharge Date/Time: 07/01/22 06:26
[2022-07-01] MEDS: Ondansetron ODT 4 MG Tablet PO (05:31)
[2022-07-01] MEDS: dexAMETHasone 10 MG/ML Vial PO.IVFORM (05:31)
[2022-07-01] MEDS: Morphine 4 MG/ML Syringe 6 MG IM (05:31)
[2022-07-01] MEDS: Orphenadrine 60 MG/2 ML Ampul IM (05:31)
== END 2022-07-01 06:26 | disposition home or self-care (01) ==
PROVIDERS: Emergency Provider Emergency Medicine; PCP Family Medicine; Visit Provider Emergency Medicine
DX: M70.61 Trochanteric bursitis, right hip (principal); G35 Multiple sclerosis; E11.9 Type 2 diabetes mellitus without complications; Z79.4 Long term (current) use of insulin; I10 Essential (primary) hypertension; E66.9 Obesity, unspecified; Z79.899 Other long term (current) drug therapy; Z79.84 Long term (current) use of oral hypoglycemic drugs
CPT/HCPCS: 96372; 99282

== ENCOUNTER 2022-07-25 09:29 | Emergency (ER) | payer MEDICARE, SELFPAY ==
[2022-07-25 09:29] VITALS: BP 157/87; PULSE 90; RESP 14; TEMP 36.6; O2SAT 100; BMI 40.3
--- NOTE | 2022-07-25 10:13 | EDS_ITS ---
HPI <FIDELINA Lobato - Last Filed: 07/25/22 11:39> History of Present Illness Chief Complaint: Eye Problem Narrative Narrative: Presenting today with a flare of optic neuritis in her left eye that started yesterday. She reports eye pain, photophobia, and decreased visual acuity. She states that she has had this 4-5 times in the left eye in the past and has a history of MS. She reports she called her neurologist this morning who told her to come to the emergency department for treatment. Patient sees Dr. Easton a neurologist at [facility]. PMH includes hypertension, diabetes mellitus, and MS. She denies any fever, chills, chest pain, shortness of breath. PFSH <FIDELINA Lobato - Last Filed: 07/25/22 11:39> PFSH Medical History Diabetes Hypertension Multiple sclerosis Home Medications Cholecalciferol (Vitamin D3) [Vitamin D3] 10,000 units PO DAILY 02/22/15 [History Last Taken 12/08/17] atenolol 100 mg tablet 100 mg PO DAILY 02/22/15 [History Last Taken 12/08/17] lisinopril 5 mg tablet 40 mg PO DAILY 02/22/15 [History Last Taken 12/08/17] metformin 500 mg tablet 1,000 mg PO BID 02/22/15 [History Last Taken 12/08/17] glimepiride 4 mg tablet 4 mg PO BID 07/01/22 [History Last Taken Unknown] hydroxyzine pamoate 25 mg capsule 25 mg PO DAILY 07/01/22 [History Last Taken Unknown] insulin detemir U-100 100 unit/mL (3 mL) subcutaneous pen (Levemir FlexPen) 40 unit subcut QHS 07/01/22 [History Last Taken Unknown] methocarbamol 500 mg tablet 500 mg PO 4X/DAY PRN PRN Muscle pain/spasm #40 tabs 07/01/22 [Rx Last Taken Unknown] oxycodone-acetaminophen 5 mg-325 mg tablet (Endocet) 1 tab PO Q6H PRN pain 3 days #12 tabs 07/01/22 [Rx Last Taken Unknown] pravastatin 20 mg tablet 20 mg PO QHS 07/01/22 [History Last Taken Unknown] prednisone 20 mg tablet 40 mg PO DAILY 5 days #10 tabs 07/01/22 [Rx Last Taken Unknown] sertraline 50 mg tablet 50 mg PO QHS 07/01/22 [History Last Taken Unknown] tizanidine 2 mg tablet 2 mg PO TID 07/01/22 [History Last Taken Unknown] prednisone 20 mg tablet 40 mg PO DAILY 7 days #14 tabs 07/25/22 [Rx Last Taken Unknown] Allergy/AdvReac Type Severity Reaction Status Date / Time amoxicillin trihydrate Allergy Rash Verified 07/25/22 09:31 [From Augmentin] diflunisal [From Dolobid] Allergy Rash Verified 07/25/22 09:31 moxifloxacin HCl Allergy Rash Verified 07/25/22 09:31 [From Avelox] potassium clavulanate Allergy Rash Verified 07/25/22 09:31 [From Augmentin] sulfamethoxazole Allergy Rash Verified 07/25/22 09:31 [From Bactrim] trimethoprim [From Bactrim] Allergy Rash Verified 07/25/22 09:31 Social History Smoking Status: Never smoker ROS <FIDELINA Lobato - Last Filed: 07/25/22 11:39> ROS ED Constitutional Constitutional ED: Denies chills, fever(s) or sweats Eyes Eyes: Reports blurry vision, change in vision and eye pain; Denies diplopia Cardiovascular Cardiovascular: Denies chest pain or palpitations Respiratory/Chest Respiratory/Chest: Denies cough or dyspnea Gastrointestinal Gastrointestinal: Denies abdominal pain, nausea or vomiting Musculoskeletal Musculoskeletal: Denies arthralgias, back pain, myalgias or neck pain Integumentary Denies abscess, Abrasions or rash Neurologic Neurologic: Denies weakness Psychiatric Psychiatric: Denies anxiety, depression, suicidal ideation or suicidal thoughts EXAM <FIDELINA Lobato - Last Filed: 07/25/22 11:39> Physical Exam Const Vital Signs: 07/25/22 09:29 Temperature 97.9 F Temperature Source Temporal Pulse Rate 90 Respiratory Rate 14 Blood Pressure 157/87 H Blood Pressure Mean 110 Pulse Ox 100 Oxygen Delivery Method Room Air Positive well nourished, well developed and no apparent distress General Appearance ED: well developed HEENT Reports normocephalic and head/scalp atraumatic Mouth ED: Yes moist mucous membranes normal Eyes PERRL and EOMs intact bilaterally Eyes Narrative: Left corneal injection, no periorbital edema. Neck full ROM and supple Chest Wall inspection of chest normal Resp normal respiratory effort and clear to auscultation bilaterally Cardio regular rate and regular rhythm GI soft to palpation, non-tender, non-distended and no masses Back/Spine normal ROM and normal to inspection Extremity normal to inspection and full ROM Neuro oriented x3, CN's II-XII intact bilaterally, moves all extremities, no focal motor deficits and no sensory deficits noted Sensorium / Orientation: awake and alert Psych mental status grossly normal and thought process normal Skin no rashes or lesions noted and no wounds [facility] <FIDELINA Lobato - Last Filed: 07/25/22 11:39> [facility] Narrative Medical decision making narrative: Presenting with a flare of optic neuritis in her left eye. She states this feels exactly like her usual flare-up. She states that when this happens she generally gets a prescription for prednisone and gets IV steroids in the em ergency department. I will attempt to get a hold of patient's neurologist. I have spoke to Dr. Easton, patient's neurologist, and he suggests 1000 mg IV Solu- Medrol here and to discharge patient home on steroids, he will try to see her in the office soon. She will be discharged home on prednisone 40 mg for the next 7 days. She will be discharged home in stable condition and is comfortable with plan. She has been given return precautions. I have personally performed a face to face assessment of the patient and have reviewed the PRERNA Note. I performed a substantive portion of the visit including all aspects of the following. My brown findings include: History is [patient presents to the emergency department with discomfort to the left eye and decreased vision that started yesterday gradually. Patient states that she has MS and has had a history of optic neuritis and has had this happen in the past. This is probably her fourth episode. Patient states that she normally gets steroids for this. Patient states she called her neurologist who advised her to come to the ER to get IV steroids. She denies any trauma to her eye. She denies recent illness. Patient complains of pain with eye movement.] Exam is [HEENT-PERRLA, EOMI. Cranial nerves II through XII grossly intact. TMs clear. Mucous membranes moist. No adenopathy. Left eye-pupil is reactive and about 5 mm. No significant conjunctival erythema noted. Extraocular muscle movement is normal without evidence of entrapment. There is no erythema around the orbit. No evidence of trauma. Funduscopic exam-no evidence of flame hemorrhages or vitreal hemorrhage. No evidence of acute abnormality. Cardiovascular-regular rate and rhythm without murmur or ectopy Lungs-clear to auscultation, chest wall stable without crepitus or subcu emphysema Abdomen-normoactive bowel sounds, soft, nontender, no rebound or rigidity, no peritoneal signs. Extremities-intact ?4, normal range of motion, normal pulses, atraumatic] Medical Decison Making [patient seen in conjunction with PA. We discussed case with Dr. Easton who is patient's neurologist. We were asked to give patient 1000 mg of Solu-Medrol IV. We will also treat her with prednisone 40 mg a day for neck 7 days and he can follow her up in the office. This presentation is typical for patient's optic neuritis.] Other additions or changes: [None] <Dr. Radha Luke, DO - Last Filed: 07/25/22 11:19> [facility] Narrative Medical decision making narrative: Presenting with a flare of optic neuritis in her left eye. She states that when this happens she generally gets a prescription for prednisone and gets IV steroids in the emergency department. I will attempt to get a hold of patient's neurologist. I have spoke to Dr. Easton, patient's neurologist, and he suggests 1000 mg IV Solu-Medrol and to discharge patient home on a Medrol Dosepak and he will try to see her in the office soon. I have personally performed a face to face assessment of the patient and have reviewed the PRERNA Note. I performed a substantive portion of the visit including all aspects of the following. My brown findings include: History is [patient presents to the emergency department with discomfort to the left eye and decreased vision that started yesterday gradually. Patient states that she has MS and has had a history of optic neuritis and has had this happen in the past. This is probably her fourth episode. Patient states that she normally gets steroids for this. Patient states she called her neurologist who advised her to come to the ER to get IV steroids. She denies any trauma to her eye. She denies recent illness. Patient complains of pain with eye movement.] Exam is [HEENT-PERRLA, EOMI. Cranial nerves II through XII grossly intact. TMs clear. Mucous membranes moist. No adenopathy. Left eye-pupil is reactive and about 5 mm. No significant conjunctival erythema noted. Extraocular muscle movement is normal without evidence of entrapment. There is no erythema around the orbit. No evidence of trauma. Funduscopic exam-no evidence of flame hemorrhages or vitreal hemorrhage. No evidence of acute abnormality. Cardiovascular-regular rate and rhythm without murmur or ectopy Lungs-clear to auscultation, chest wall stable without crepitus or subcu emphysema Abdomen-normoactive bowel sounds, soft, nontender, no rebound or rigidity, no peritoneal signs. Extremities-intact ?4, normal range of motion, normal pulses, atraumatic] Medical Decison Making [patient seen in conjunction with PA. We discussed case with Dr. Easton who is patient's neurologist. We were asked to give patient 1000 mg of Solu-Medrol IV. We will also treat her with prednisone 40 mg a day for neck 7 days and he can follow her up in the office. This presentation is typical for patient's optic neuritis.] Other additions or changes: [None] Discharge Plan Triage Chief Complaint: Eye Problem ED Midlevel Provider: Sunita Duque ED Provider: Radha Luke Dx/Rx/DC Orders Clinical Impression: Optic neuritis, left, Multiple sclerosis Instructions: Optic Neuritis Prescriptions: New prednisone 20 mg tablet 40 mg PO DAILY 7 Days Qty: 14 0RF No Action metformin 500 MG tablet 1,000 mg PO BID atenolol 100 MG tablet 100 mg PO DAILY lisinopril 5 MG tablet 40 mg PO DAILY Cholecalciferol (Vitamin D3) [Vitamin D3] 5,000 UNIT capsule 10,000 units PO DAILY glimepiride 4 mg Tablet 4 mg PO BID hydroxyzine pamoate 25 mg capsule 25 mg PO DAILY Label Comments: TAKE 1 CAPSULE BY MOUTH THREE TIMES DAILY NEEDED FOR ANXIETY. sertraline 50 mg tablet 50 mg PO QHS Label Comments: TAKE 1/2 TAB BY MOUTH ONCE DAILY FOR ONE WEEK THEN 1 TAB ONCE A DAY pravastatin 20 mg tablet 20 mg PO QHS Levemir FlexPen 100 unit/mL (3 mL) insulin pen 40 unit SUBCUT QHS Label Comments: INJECT 30 UNITSCSUBCUTANEOUSLY DAILY AT BEDTIME tizanidine 2 mg tablet 2 mg PO TID Label Comments: TAKE 1 TAB BY MOUTH IN THE MORNING, 1 TAB AT NOON, AND 1 TAB BEFORE BEDTIME FOR 30 DAYS oxycodone-acetaminophen [Endocet] 5-325 mg tablet 1 tab PO Q6H PRN (Reason: pain) 3 Days Qty: 12 0RF prednisone 20 mg tablet 40 mg PO DAILY 5 Days Qty: 10 0RF methocarbamol 500 mg tablet 500 mg PO 4X/DAY PRN PRN (Reason: Muscle pain/spasm) Qty: 40 0RF Primary Care Provider: Dominguez Vidales Referrals: Dominguez Vidales MD [Primary Care Provider] - 3-5 Days Activity Restrictions/Additional Instructions: Please follow-up with your neurologist on Wednesday. Please return for any worsening of symptoms. Disposition Disposition: Home, Self Care
[2022-07-25 11:46] VITALS: BP 124/87; PULSE 73; RESP 15; O2SAT 98
== END 2022-07-25 11:47 | disposition home or self-care (01) ==
PROVIDERS: Emergency Provider Emergency Medicine; PCP Family Medicine; Visit Provider Emergency Medicine
DX: H46.9 Unspecified optic neuritis (principal); G35 Multiple sclerosis
CPT/HCPCS: 96365; 99283; A4216; J2930

== ENCOUNTER 2022-07-27 14:30 | Outpatient (RCR) | payer MEDICARE, SELFPAY ==
--- NOTE | 2022-03-23 12:16 | HP.PTEVAL_ITS ---
Patient's Visit Information NOHEMY PARK is a 61 year old F referred to Physical Therapy by Dr. Homer Easton MD with a diagnosis of ACUTE R LBP WITH R SCIATICA. Date of Evaluation: 03/23/22 Physical Therapist: [place] See PT, Cert MDT - Visit Plan Frequency: 2-3x /Week Duration: 4-6 Weeks Plan: *CHECK AUTH: RECORD # OF VISITS APPROVED AND EXPIRATION DATE. CHECK CODES APPROVED WITH POC*. *CHECK X-RAY RESULTS*. LAND VISIT FOR FURTHER HEP INSTRUCTION. AQUATIC THERAPY FOR PAIN RELIEF, POSTURE CORRECTION/STRENGTHENING, INSTRUCTION IN APPROPRIATE BODY MECHANICS AND ACTIVITY MODIFICATIONS. DLS STARTING WITH A NEUTRAL SPINE PROGRESSING ROM TOLERATED. CARLINE LE ROM, STRETCHING AND STRENGTHENING. HEP INSTRUCTION. 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 Present symptoms: CARLINE LOW BACK PAIN R>L. R GROIN PAIN. WAS HAVING RIGHT LE PAIN DOWN TO BEHIND THE KNEE BUT HASN'T HAD IT DOWN THE LEG MUCH FOR ABOUT A WK. CHRONIC CARLINE FOOT NUMBNESS. CARLINE LE SWELLING THAT PATIENT RELATES TO BEING MORE SEDENTARY. Present since: 3.5 WKS AGO. Pain Scale: WORST 10/10, LEAST 2/10. Currently: 2/10. Is it getting better, worse or staying the same: GETTING BETTER. Commenced as a result of: LIFTING . Symptoms at onset: RIGHT LOW BACK, BUTTOCK AND THIGH PAIN. Worse: HOUSEWORK LIKE CLEANING AND RUNNING THE SWEEPER, STANDING AND WALKING. Better: SITTING, TYLONOL, ALEVE, ADVIL. Disturbed sleep: YES. Previous history/Previous treatment: NONE. Treatment this episode: NONE. Coughing/sneezing/straining: POSITIVE. Gait: INITIALLY HAD TO WALK WITH WALKER THEN PROGRESSED TO TWO CANES AND NOW DOWN TO ONE CANE OR FUNITURE WALKING. Bowel or Bladder Dysfunction: NO. Accidents: NO. Unexplained weight loss: NO. Imaging: X-RAYS ORDERED BUT NOT COMPLETED YET. PMH/Recent major surgery: IDDM, MULTIPLE SCLEROSIS, HTN. - Objective Sitting/Standing Posture: POOR. REDUCED LUMBAR LORDOSIS. NO RELEVENT LATERAL SHIFT. Active Correction of posture: WORSE. Other Observations: SLOW INDEP GAIT INTO AND OUT OF PT WITH STRAIGHT CANE 2X~300 FEET. NO LOB. INDEP SIT TO STAND TRANSFER WITH CARLINE UE ASSIST. DIFFICULTY INITIATING GAIT AFTER SITTING. Sensory deficit: CARLINE LE LIGHT TOUCH SENSATION IS GROSSLY INTACT AND SYMMETRICAL. ROM deficit: CARLINE HIP TIGHTNESS THAT IS SYMMETRICAL BUT PATIENT C/O RIGHT HIP AND THIGH PAIN WITH R HIP IR TESTING. CARLINE HS AND GASTROC SOLEUS TIGHTNESS. Motor deficit: L LE GROSSLY 5/5 WITH MMT'ING EXCEPT HIP 4/5. R LE GROSSLY 5/5 WITH MMT'ING EXCEPT HIP GRADED 3+ TO 4-/5. Dural Signs: NEGATIVE CARLINE LE'S. Lumbar mvmt loss: flex - MOD TO JASON. ext - JASON. R SG - JASON. L SG - JASON. PATIENT C/O PAIN AND PRESSURE IN RIGHT LOW BACK AND THIGH AREA WITH LUMBAR ROM TESTING ALL PLANES. PATIENT C/O INCREASED R GROIN PAIN WITH STANDING X 2 MIN. Core strength: POOR. Palpation: MILD CARLINE LE EDEMA THAT PATIENT REPORTS WAS SEEN BY THE DOCTOR IN THE ED THAT HE RELATED TO HER INACTIVITY FROM PAIN. TREATMENT: NEUROMUSCULAR REEDUCATION - RETRAINING OF MVMT AND POSTURE FOR SITTING, LYING AND STANDING ACTIVITIES. INITIATED HEP WITH SEATED CARLINE HEEL/TOE RAISES, MARCHING AND LAE'S 2X10 EVERY 2-3 HOURS TOLERATED. PATIENT COMMUNICATED/DEMONSTRATED A GOOD UNDERSTANDING OF ALL INSTRUCTIONS AFTER GIVEN. OTHER: ENCOURAGED PATIENT TO GET X-RAYS AND X-RAY RESULTS THAT WERE ORDERED SOON POSSIBLE. ENCOURAGED PATIENT TO CONTINUE TO USE CANE FOR SAFETY AND PAIN RELIEF. ALSO INSTRUCTED PATIENT TO FOLLOW UP WITH HER PCP OR DR. EASTON IF ANY SYMPTOMS WORSEN. SHE REPORTS SHE CALLED DR. EASTON TO TELL HIM SHE WAS HAVING SCIATICA AND HE ORDERED THE X-RAYS BUT SHE HAS NOT SEEN HIM IN PERSON. SHE REPORTS THERE IS A COMMUNICATION PROBLEM WITH DR. EASTON AND [facility] ABOUT THE X- RAYS AND SHE WILL TRY TO CLEAR IT UP TODAY AND GET THE X-RAYS. - Balance/Special Test Scores Oswestry Low Back Score: 23 - Goals Goal 1:: DECREASE C/O LOW BACK AND RIGHT LE PAIN. Goal Time Frame: 4-6 Weeks Goal 2:: IMPROVE LIFTING, WALKING, STANDING, SOCIAL LIFE AND HOMEMAKING FUNCTION. Goal Time Frame: 4-6 Weeks Goal 3:: INSTRUCT IN PROPHYLAXIS Goal Time Frame: 4-6 Weeks - Anticipated Interventions Patient/Client Instruction: Educate patient on: Condition, Plan of Care, Risk Factors For the Purpose of:: To improve self management Therapeutic Exercise to Include: Strength training, Balance training, Body mechanics, Postural training, Gait and locomotor training, Neuromotor developme nt, In an aquatic setting, Dynamic Lumbar Stabilization For the Purpose of:: To decrease pain, To improve muscle performance and motor function, To increase tolerance to activity/condition/position, To improve ability of physical actions for home/community/work/leisure, To improve gait and locomotor functions Thank you for the opportunity to evaluate your patient. For Medicare and Medicare HMO plans, please review the plan of care and approve it. It will need to be FAXED BACK to us at [phone] for Medicare purposes. For Medicare only, by signing this I certify the plan of care. Please let me know if there are questions or concerns regarding this plan of care. Physician Signature: _Date:
--- NOTE | 2022-05-18 11:07 | HP.PTREVAL_ITS ---
Dr. Homer Easton MD, It has been my pleasure to treat NOHEMY PARK over the last 2 visits for ACUTE R LBP WITH R SCIATICA. Please see the progress note below for an update on the physical therapy plan of care! Subjective: PATIENT REPORTS DELAY IN PT attendance DUE TO A COMPBINATION OF 2 DEATHS IN FAMILY, WEATHER AND HOLIDAY'S. PATIENT REPORTS SHE IS GETTING AROUND A LITTLE BETTER NOW THAN WHEN SHE HAD HER PT EVAL 03/23/23. USING CANE AT ALL TIMES. PATIENT ALSO REPORTS SHE HAS STARTED WEARING COMPRESSION SOCKS DAILY AND HER LE SWELLING IS NOT GONE BUT BETTER. SHE STATES SHE STARTED A PAIN PILL WEDNESDAY AND SHE WAS ABLE TO SLEEP IN BED ABOUT 7 HOURS FOR THE FIRST TIME - BEFORE COULD ONLY LAY IN BED ABOUT 1-2 HOURS DUE TO R HIP PAIN. CURRENT SX'S - RIGHT HIP PAIN RADIATING INTO R GROIN AND DOWN INSIDE OF THIGH TO KNEE. ALSO GETS PAIN DOWN OUTSIDE OF THIGH. STILL HAVING A LITTLE BIT OF PAIN, NUMBNESS AND TINGLING IN CARLINE FEET BUT BETTER. HAVING LBP TOO. PATIENT REPORTS RECENT R HIP X-RAY AT [facility] ORDERED BY DR. VILLAR THAT WAS NORMAL. LUMBAR X-RAY RESULTS: STUDY: X-RAY - LUMBOSACRAL SPINE. REASON FOR EXAM: Female, 61 years old. RADICULOPATHY. TECHNIQUE: 7 view(s) of the lumbosacral spine were obtained. COMPARISON: None. . FINDINGS: Normal lumbar lordosis. There is no substantial scoliosis. Grade 1 L4-5. anterolisthesis does not significantly change in flexion or extension. There is multilevel endplate spondylosis of the lumbar vertebrae. There is. multi-level degenerative disc disease with multi-level disc space. narrowing. Normal bilateral sacral ala, sacroiliac joints, and visualized sacrum. Normal visualized soft tissue structures. . RAD/L/S Spine Bending Flex/Ext. IMPRESSION: Grade 1 L5 anterolisthesis without finding of dynamic instability. Multilevel degenerative disc and endplate disease. Electronically Signed: Deepak Starkey MD. at 19:[address] VILLAR TOLD HER HE THINKS SHE HAS SCIATICA AND THERPAY WILL HELP IT. NO TAKER AWAY CONSULTS. Objective/Function: PATIENT WAS SEEN TODAY FOR RE-ASSESSMENT OF PROGRESS TOWARD THE SET PT GOALS AND THE NEED FOR FURTHER PHYSICAL THERAPY VS READINESS FOR DISCHARGE. UPON EXAM TODAY: SLOW INDEP GAIT INTO AND OUT OF PT WITH STRAIGHT CANE 2X~300 FEET. NO LOB. INDEP SIT TO STAND TRANSFER WITHOUT CARLINE UE ASSIST BUT DIFFICULT. DIFFICULTY INITIATING GAIT AFTER SITTING AND C/O SHOOTING PAIN DOWN OUTSIDE OF R LEG TO MID THIGH STANDING X 1 MINUTE. Sensory deficit: CARLINE LE LIGHT TOUCH SENSATION IS GROSSLY INTACT AND SYMMETRICAL. ROM deficit: CARLINE HIP TIGHTNESS THAT IS SYMMETRICAL BUT PATIENT C/O RIGHT HIP AND THIGH PAIN WITH R HIP IR TESTING. CARLINE HS AND GASTROC SOLEUS TIGHTNESS. Motor deficit: L LE GROSSLY 5/5 WITH MMT'ING EXCEPT HIP 4/5. R LE GROSSLY 5/5 WITH MMT'ING EXCEPT HIP GRADED 4-/5. Dural Signs: NEGATIVE CARLINE LE'S. Lumbar mvmt loss: flex - MOD. ext - JASON. R SG - MOD TO JASON. L SG - MOD TO JASON. PATIENT C/O PAIN AND PRESSURE IN RIGHT LOW BACK AND THIGH AREA WITH LUMBAR ROM TESTING ALL PLANES. ALSO C/O FEELING OFF BALANCE WITH LUMBAR ROM TESTING. NO ACTUAL LOB OBSERVED. Core strength: POOR. Palpation: MILD CARLINE LE EDEMA Plan Plan: AQUATIC THERAPY FOR PAIN RELIEF, POSTURE CORRECTION/STRENGTHENING, INSTRUCTION IN APPROPRIATE BODY MECHANICS AND ACTIVITY MODIFICATIONS. DLS STARTING WITH A NEUTRAL SPINE PROGRESSING ROM TOLERATED. CARLINE LE ROM, STRETCHING AND STRENGTHENING. HEP INSTRUCTION. Balance/Gait/Functional tests - Balance/Special Test Scores Oswestry Low Back Score: 29 Goals Goal 1:: DECREASE C/O LOW BACK AND RIGHT LE PAIN. Goal Time Frame: 4-6 Weeks Goal 2:: IMPROVE LIFTING, WALKING, STANDING, SOCIAL LIFE AND HOMEMAKING FUNCTION. Goal Time Frame: 4-6 Weeks Goal 3:: INSTRUCT IN PROPHYLAXIS Goal Time Frame: 4-6 Weeks Anticipated Interventions Patient/Client Instruction: Educate patient on: Condition, Plan of Care, Risk Factors For the Purpose of:: To improve self management Therapeutic Exercise to Include: Strength training, Balance training, Body mechanics, Postural training, Gait and locomotor training, Neuromotor development, In an aquatic setting, Dynamic Lumbar Stabilization For the Purpose of:: To decrease pain, To improve muscle performance and motor function, To increase tolerance to activity/condition/position, To improve ability of physical actions for home/community/work/leisure, To improve gait and locomotor functions Please do not hesitate to contact me at [phone] by phone or if you have questions or concerns regarding this new plan of care! Sincerely, Mecca See, PT, Cert MDT
--- NOTE | 2022-06-29 16:37 | HP.PTREVAL ---
Dr. Homer Easton MD, It has been my pleasure to treat NOHEMY PARK over the last 12 visits for ACUTE R LBP WITH R SCIATICA. Please see the progress note below for an update on the physical therapy plan of care! Subjective: PATIENT REPORTS MISSING LAST VISIT DUE TO ILLNESS. PATIENT REPORTS ONSET OF PAIN GOING DOWN RIGHT LEG FROM R LOW BACK TO KNEE. OVER ALL BETTER WITH THERAPY THOUGH. I FEEL MORE FLEXIBLE AND I FEEL THE FLUID INS'T MAD IN MY LEGS AND FEET. AND I FEEL I AM GETTING MORE BALANCED. I WAS EVEN ABLE TO WALK SOME WITHOUT MY CANE BEFORE I GOT SICK. FEELING BETTER NOW. THE PAIN COMES AND GOES. PATIENT REPORTS SHE REALLY LIKES THE WATER THERAPY AND IT REALLY HELPS. Objective/Function: PATIENT WAS SEEN TODAY FOR RE-ASSESSMENT OF PROGRESS TOWARD THE SET PT GOALS AND THE NEED FOR FURTHER PHYSICAL THERAPY VS READINESS FOR DISCHARGE. PATIENT IS MAKING GOOD PROGRESS TOWARD ALL PT GOALS AND BECOMING INDEP WITH A WATER EX PROGRAM. SHE REPORTS SHE WAS DOING EVEN BETTER THAN THIS UNTIL SHE GOT SICK LAST WEEK. SHE IS A GOOD CANDIDATE TO CONTINUE PT TO HELP HER FULLY TRANSISTION TO INDEP HEP. PATIENT IS AGREEABLE. UPON EXAM TODAY: INDEP GAIT INTO PT WITH STRAIGHT CANE. INDEP SIT TO STAND TRANSFER WITH CARLINE UE ASSIST. Sensory deficit: CARLINE LE LIGHT TOUCH SENSATION IS GROSSLY INTACT AND SYMMETRICAL. ROM deficit: CARLINE HIP TIGHTNESS THAT IS SYMMETRICAL BUT PATIENT C/O RIGHT HIP AND THIGH PAIN WITH R HIP IR TESTING. CARLINE HS AND GASTROC SOLEUS TIGHTNESS. Motor deficit: L LE GROSSLY 5/5 WITH MMT'ING EXCEPT HIP 4/5. R LE GROSSLY 5/5 WITH MMT'ING EXCEPT HIP GRADED 4-/5. Dural Signs: NEGATIVE CARLINE LE'S. Lumbar mvmt loss: flex - NIL. ext - JASON. R SG - JASON. L SG - JASON. PATIENT C/O PAIN AND PRESSURE IN RIGHT LOW BACK/HIP AREA WITH LUMBAR EXT ROM TESTING. NO C/O PAIN WITH LUMBAR FLEXION TESTING TODAY. Core Strength: POOR. Palpation: MILD CARLINE LE EDEMA. [ End ] Plan Plan: CONTINUE AQUATIC THERAPY 1X/WK X 3 MORE VISITS. AQUATIC THERAPY FOR PAIN RELIEF, POSTURE CORRECTION/STRENGTHENING, INSTRUCTION IN APPROPRIATE BODY MECHANICS AND ACTIVITY MODIFICATIONS. DLS STARTING WITH A NEUTRAL SPINE PROGRESSING ROM TOLERATED. CARLINE LE ROM, STRETCHING AND STRENGTHENING. HEP INSTRUCTION. Balance/Gait/Functional tests - Balance/Special Test Scores Oswestry Low Back Score: 34 Goals Goal 1:: DECREASE C/O LOW BACK AND RIGHT LE PAIN. Goal Time Frame: 4-6 Weeks Goal 2:: IMPROVE LIFTING, WALKING, STANDING, SOCIAL LIFE AND HOMEMAKING FUNCTION. Goal Time Frame: 4-6 Weeks Goal 3:: INSTRUCT IN PROPHYLAXIS Goal Time Frame: 4-6 Weeks Anticipated Interventions Patient/Client Instruction: Educate patient on: Condition, Plan of Care, Risk Factors For the Purpose of:: To improve self management Therapeutic Exercise to Include: Strength training, Balance training, Body mechanics, Postural training, Gait and locomotor training, Neuromotor development, In an aquatic setting, Dynamic Lumbar Stabilization For the Purpose of:: To decrease pain, To improve muscle performance and motor function, To increase tolerance to activity/condition/position, To improve ability of physical actions for home/community/work/leisure, To improve gait and locomotor functions Please do not hesitate to contact me at [phone] by phone or if you have questions or concerns regarding this new plan of care! Sincerely, Mecca See, PT, Cert MDT
== END 2022-07-27 19:00 | disposition home or self-care (01) ==
LOC: PT 14:30
PROVIDERS: PCP Family Medicine; Referring Provider Psychiatry & Neurology Neurology; Visit Provider Psychiatry & Neurology Neurology
DX: M54.41 Lumbago with sciatica, right side (principal)
CPT/HCPCS: 97112; 97113; 97162; 97164

== ENCOUNTER 2022-11-19 08:40 | Outpatient (RCR) | payer MEDICARE, SELFPAY ==
[2022-11-19 09:13] VITALS: BP 132/62; PULSE 90; RESP 20; TEMP 36.1
--- NOTE | 2022-11-19 10:00 | PCM.WC.HP ---
History of Present Illness Date of Service: 11/19/22 Chief Complaint: Left posterior leg/heel wound History of Wound: Patient is a 62-year-old female with PMHx of diabetes mellitus type 2 with peripheral polyneuropathy complicated by noncompliance, HLD, HTN, Multiple Sclerosis, and obesity. She states that 4 weeks ago she developed irritation to the back of her left heel secondary to shoe gear rubbing. She states at that time she was moving and did not have time to slow down and thought the issue would resolve on its own. She however did breakdown developing ulceration to the posterior aspect of the heel near the distal aspect of the Achilles tendon insertion this ulceration continue to worsen with exposure of the Achilles tendon/fascia covering of the tendon. She did see her audit specialist who placed her on antibiotics, doxycycline and ciprofloxacin, following some localized redness of the ulcerative site. She was also placed into a surgical shoe for offloading. Due to the depth of the ulcerative site she was referred to the wound care center for continued care. She currently denies any N/V/F/chills. She denies further complaints today. [facility] [place] Medical History Diabetes Hypertension Multiple sclerosis Home Medications Cholecalciferol (Vitamin D3) [Vitamin D3] 10,000 units PO DAILY 02/22/15 [History Last Taken 12/08/17] atenolol 100 mg tablet 100 mg PO DAILY 02/22/15 [History Last Taken 12/08/17] lisinopril 5 mg tablet 40 mg PO DAILY 02/22/15 [History Last Taken 12/08/17] glimepiride 4 mg tablet 4 mg PO BID 07/01/22 [History Last Taken Unknown] hydroxyzine pamoate 25 mg capsule 25 mg PO DAILY 07/01/22 [History Last Taken Unknown] insulin detemir U-100 100 unit/mL (3 mL) subcutaneous pen (Levemir FlexPen) 40 unit subcut QHS 07/01/22 [History Last Taken Unknown] methocarbamol 500 mg tablet 500 mg PO 4X/DAY PRN PRN Muscle pain/spasm #40 tabs 07/01/22 [Rx Last Taken Unknown] pravastatin 20 mg tablet 20 mg PO QHS 07/01/22 [History Last Taken Unknown] sertraline 50 mg tablet 50 mg PO QHS 07/01/22 [History Last Taken Unknown] tizanidine 2 mg tablet 2 mg PO TID 07/01/22 [History Last Taken Unknown] prednisone 20 mg tablet 40 mg (2 x 20 mg) PO DAILY 7 days #14 tabs 07/25/22 [Rx Last Taken Unknown] dulaglutide 0.75 mg/0.5 mL subcutaneous pen injector (Trulicity) 0.75 mg subcut QWEEK 11/19/22 [History Last Taken Unknown] Allergy/AdvReac Type Severity Reaction Status Date / Time amoxicillin trihydrate Allergy Rash Verified 11/19/22 09:24 [From Augmentin] diflunisal [From Dolobid] Allergy Rash Verified 11/19/22 09:24 moxifloxacin HCl Allergy Rash Verified 11/19/22 09:24 [From Avelox] potassium clavulanate Allergy Rash Verified 11/19/22 09:24 [From Augmentin] sulfamethoxazole Allergy Rash Verified 11/19/22 09:24 [From Bactrim] trimethoprim [From Bactrim] Allergy Rash Verified 11/19/22 09:24 Social History Smoking Status: Never smoker ROS Constitutional Constitutional: Denies anorexia, chills, fever(s) or weakness Eyes Eyes: Denies change in vision, dry eyes or eye pain ENT HEENT: Denies dysphagia, nasal congestion or sore throat Cardiovascular Cardiovascular: Denies chest pain, dyspnea or palpitations Respiratory/Chest Respiratory/Chest: Denies cough, pain on inspiration or wheezing Gastrointestinal Gastrointestinal: Denies abdominal pain, constipation, diarrhea, nausea or vomiting Genitourinary Genitourinary: Denies dysuria, hematuria, urinary frequency or urinary urgency Musculoskeletal Musculoskeletal: Denies joint pain, joint stiffness or joint swelling Integumentary Integumentary: Denies lesions, pruritus or rash Neurologic Neurologic: Denies dizziness, numbness or seizures Endocrine Endocrinology: Denies cold intolerance or heat intolerance Hematologic/Lymphatic Hematologic/Lymphatic: Denies easy bleeding or easy bruising Vital Signs Vital Signs Vital Signs: 11/19/22 09:13 Temperature 97 F L Temperature Source Temporal Pulse Rate 90 Respiratory Rate 20 H Blood Pressure 132/62 H Blood Pressure Mean 85 Blood Pressure Source Monitor Physical Exam Const alert, oriented x3 and no apparent distress General Appearance: cooperative and comfortable HEENT normocephalic Eyes General Eye: normal appearance of both eyes Neck General: normal visual inspection Lymph Lymphatic: no lymphadenopathy noted and no lymphedema noted Resp normal respiratory effort Cardio regular rate and regular rhythm Extremity normal capillary refill, no joint enlargement, no calf tenderness and no pedal edema Extremity Narrative: DP and PT pulses weakly palpable bilaterally. Capillary fill time less than 5 seconds to the digits bilateral. Dermatological: Skin appears well-hydrated with normal turgor. There is an ulceration noted to the posterior aspect of the distal leg near the insertion of the Achilles tendon with exposure of the Achilles tendon/fascia noted. Wound edges are rolled. Margins of the wound appear healthy and granular. There is localized erythema about the wound and proximal posterior lower leg. There is slight malodor. No purulent drainage, no palpable fluctuance/bogginess noted, no visible abscess formation, no lymphangitic streaking. Musculoskeletal: Muscle strength 5 of 5 age-appropriate bilateral. Decreased range of motion of the ankle joint bilateral with the knee extended without pain or crepitus. No pain to palpation about the ulcerative site. Skin no rashes or lesions noted, skin turgor normal and no jaundice Neuro moves all extremities Neuro Narrative: Decreased protective sensation consistent with diabetic peripheral polyneuropathy Debridement Note Debridement Note Wound debrided: Left posterior lower extremity Laterality: Left Wound Grade/Stage: Melvin stage II Type of Debridement: Excisional debridement Anesthesia Used: 5% Lidocaine Gel Depth: Down to and including healthy tissue and in the subcutaneous layer Percentage of wound debrided: 100 Instrument Used: 5mm curette Tissue Removed: fibrous, devitalized subcutaneous, biofilm, slough Severity: Fat Layer Exposed Amount of bleeding with debridement: Mild Bleeding Controlled with: Compression and gauze Patient tolerated procedure: Patient tolerated procedure well Post-Debridement Measurements and Additional Note: Post-Debridement Measurements/Treatment - Nurse 1 - General Ulcer Assessment Start: 11/19/22 09:13 Freq: Status: Active Protocol: NANY Activity Type Activity Date Activity User E-sign Co-sign Detail Recorded Client Recorded Date Recorded By Document 11/19/22 09:13 DL [id number] 11/19/22 09:21 DL 11/19/22 09:13 SHANTEL - Today's Visit Information Type of service Initial Visit Arrival Mode Ambulatory, Walker Transfer Assistance None Patient Identification Verified (Name & Yes ) Patient Requires Transmission-Based No Precautions Vital Signs Temperature (97.8 F-99.1 F) 97 F L Temperature Source Temporal Pulse Rate (60-100) 90 Pulse Location Monitor Respiratory Rate (12-18) 20 H Respiratory rate source Observation Blood Pressure (90/60-120/80) 132/62 H Blood Pressure Mean 85 Source Monitor History Since Last Visit- (Skip if this is Patient's initial visit) Left Footwear Regular Shoe Right Footwear Regular Shoe Pain Scale: 0-10 Numeric Is Patient Pain Free? Yes Lower Extremity Assessment/ Foot Assessment/ Toe Nail Assessment Left -Posterior Tibial Palpable Yes -Dorsalis Pedis Palpable Yes -Extremity Color Normal -Hair Growth on Legs No -Hair Growth on Toes No -Temperature of Extremity Warm -Capillary Refill Greater than 3 Seconds -Dependent Rubor No -Blanched when Elevated No -Lipodermatosclerosis No -Other Deformity No -Prior Foot Ulcer No -Charcot Joint No -Prior Amputation No -Thick No -Discolored No -Deformed No -Improper Length & Hygeine No Right -Posterior Tibial Palpable Yes -Dorsalis Pedis Palpable Yes -Extremity Color Normal -Hair Growth on Legs No -Hair Growth on Toes No -Temperature of Extremity Warm -Capillary Refill Greater than 3 Seconds -Dependent Rubor No -Blanched when Elevated No -Lipodermatosclerosis No -Other Deformity No -Prior Foot Ulcer No -Charcot Joint No -Prior Amputation No -Thick No -Discolored No -Deformed No -Improper Length & Hygeine No Neuropathy Assessment Feet - Top Side and Bottom <Entered> (a) Communication Assessment Preferred language Armenian Able to Read Yes Able to Write Yes Right Hearing Abillity Normal Left Hearing Abillity Normal Visual Assistive Devices Glasses Teaching Assessment Preferences Verbal,Written, Demonstration Barriers to Learning None Readiness To Learn Good Willingness to Engage in Self Management Med Activies Readiness to Engage in Self Management Med Activities Anxiety Level Calm Cooperation Cooperative Perception Coherent Interest in Health Problem Asks Questions Education Importance Acknowledges Need Smoking Status Never smoker Is Patient Diabetic Yes Functional Assessment Recent Decline in Ability to Perform Denies Any Declines Culture/Sabianist/Pastrycook'S Assistant Cultural/Sabianist Needs that may affect No Treatment Plan Would you allow our hospital commissioning agent to No meet you for the purpose of spiritual/ emotional support? Pastrycook'S Assistant to contact place of sabianism No Teaching: Wound Center Dressing Your Wound -Person Taught Patient Diagnostic Tests Ordered -Person Taught Patient *Welcome to the Wound Center -Person Taught Patient (a) 1 - + WC - Nurse 1 - General Ulcer Measurement Start: 11/19/22 09:13 Freq: Status: Active Protocol: Activity Type Activity Date Activity User E-sign Co-sign Detail Recorded Client Recorded Date Recorded By Document 11/19/22 09:13 DL [id number] 11/19/22 09:21 DL 11/19/22 09:13 Wound Center Nurse 1 #1 L Heel -Current Size (cm) - Length 2.2 -Current Size (cm) - Width 3.1 -Current Size (cm) - Depth 0.6 -Total Square Cm 6.82 -Photo Taken Yes -Exudate Amt Medium -Exudate Type Serosanguineous -Wound Margin Distinct, Outline Attached -Granulation Amt None Present (0 %) -Necrosis Amt Large (67-100%) -Necrotic Tissue Type Adherent Slough -Structure Exposed Tendon,Fascia -Texture (Martha-wound Skin Appearance) Localized Edema ,Scarring -Moisture (Martha-wound Skin Appearance) No Abnormality -Color (Martha-wound Skin Appearance) Erythema -Temperature (Martha-wound Skin No Abnormality Appearance) (Pt Warm) -Tenderness on Palpation (Martha-wound No Skin Appearance) -Ulcer Cleansing Soap and Water -Foul Odor after Cleansing Yes -Anesthetic Used 5% Lidocaine Gel Lab / Micro Data 11/19/22 10:38 11/19/22 10:38 Assessment/Plan Assessment/Plan (1) Essential (primary) hypertension: CODE(S): I10 - Essential (primary) hypertension (2) Diabetes mellitus with diabetic polyneuropathy: CODE(S): E11.42 - Type 2 diabetes mellitus with diabetic polyneuropathy (3) Uncontrolled diabetes mellitus: (4) Type 2 diabetes mellitus with foot ulcer: CODE(S): E11.621 - Type 2 diabetes mellitus with foot ulcer; L97.509 - Non-pressure chronic ulcer of other part of unspecified foot with unspecified severity (5) 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 Wound edges are rolled. Margins of the wound appear healthy and granular. There is localized erythema about the wound and proximal posterior lower leg. There is slight malodor. No purulent drainage, no palpable fluctuance/bogginess noted, no visible abscess formation, no lymphangitic streaking. Swab cultures obtained of the site, awaiting results Laboratory data ordered today 11/19/2022 and reviewed. WBC 14.2, no left shift. ESR 18, CRP 122, vitamin D 102.9, albumin 2.7, glucose 363. Hemoglobin A1c 13.3%, this is minimally decreased from last reported A1c in 2021 of 14%. Patient was recently started on doxycycline/Cipro and was instructed to finish current antibiotic course. Ulcerative site underwent debridement as noted in clinical panel above. Ulcerative site measures 2.8 cm x 3.0 cm x 0.6 cm. Dakin's wet-to-dry dressing applied to the wound site. She was instructed to change dressings daily. Discussed Prevalon offloading boot to be worn when sitting in chair with feet elevated or while sleeping at night. He will obtain offloading boot. She is to continue to offload and surgical shoe at all times of ambulation. Discussed that this wound is deep and with the level being close proximity of the Achilles tendon creates complication for developing infection that would travel up the leg. Discussed high risk of amputation if infection does set in. Discussed A1c complicates healing and increases risk of infection and amputation. She voices understanding of our discussion today. Discussed obtaining approval for advanced wound care product to be applied at next visit. LEAS ordered, awaiting results. Venous studies ordered awaiting results. Radiographs of the left foot and ankle were ordered today, 11/19/2022. I did review the radiographic images which demonstrate vessel calcification/Monckeberg sign. There is a soft tissue ulceration/defect at the posterior aspect of the heel near the distal insertion site of the Achilles tendon/calcaneus. No evidence of osteomyelitis. Encouraged adequate protein intake to aid in wound healing. She may take Jose Alberto supplementation to aid in wound healing. Discussed proper diabetic diet and encouraged lifestyle management/weight loss to continue to aid in glucose reduction to achieve tight glycemic control. Discussed reduction of her A1c is essential in wound healing. Discussed risks and complications with blood sugars greater than 250mg/dL and elevated A1c greater than 7.5%. Discussed proper diabetic diet to aid in achieving tight glucose control. Discussed regular follow-up with PCP/tune up mechanic to help achieve her A1c goal of is close to 6% as possible. Discussed the importance of ambulating in shoe gear at all times and to never go barefoot, socks include barefoot. Stressed importance of daily foot checks being diabetic. She voices understanding of this. I discussed signs and symptoms of infection today. Discussed if she notices redness continuing to spread from the ulcerative site progressing up the leg, if she has purulent drainage from the wound site, increasing foul odor from the wound site, or if she experiences fever greater than 101 degree, or nausea, vomiting, chills that these are signs of a progressing infection and she needs to report to the ED to receive IV antibiotics. She voices understanding of this today. The following work up and care recommendations were made: Dressing: Dakin's wet to dry Wash: Soap and water Tissue growth optimization: None Offload: Surgical shoe and Prevalon offloading boot Vascular: DP and PT pulses weakly palpable with capillary fill time less than 5 seconds to digits. LEAS and venous studies were ordered 11/19/2022, awaiting results Edema: No edema noted Infection: Localized erythema about the wound site. Currently on Doxy/Cipro Pain: May take [id number] Tylenol for discomfort Host factors: DM type II with peripheral polyneuropathy complicated by noncompliance, obesity, shoe gear, patient education. I answered all the patient's questions. To return to the wound healing center in 1 week or call sooner if the patient has any questions or concerns.
--- NOTE | 2022-11-19 10:52 | RAD_ITS ---
INDICATION: NON HEALING WOUND EXAMINATION/TECHNIQUE: X-RAY - LEFT XR Ankle Min 3 Views 3 VIEWS COMPARISON: : No relevant prior comparison study available FINDINGS: Bones: There is normal bony alignment, trabecular pattern is normal. No fractures or focal lytic or sclerotic bony lesions. Joints: Visualized joint spaces are maintained. No subluxation or displacement. No periarticular erosions. Soft tissues: Significant soft tissue swelling medially, no avulsion deformity soft tissue gas or radiopaque foreign body. RAD/Ankle min 3 Views IMPRESSION: 1. There is moderate soft tissue swelling particularly medially. No evidence of soft tissue gas, bony erosion or avulsion deformity. No radiopaque foreign body. 2. No fracture dislocation or destructive bony process noted. Electronically Signed: Stevie Brandon MD at 19:50 EDT ,
--- NOTE | 2022-11-19 10:52 | RAD_ITS ---
INDICATION: NON HEALING WOUND EXAMINATION/TECHNIQUE: X-RAY - LEFT XR Foot Min 3 Views 3 VIEWS COMPARISON: : No relevant prior comparison study available FINDINGS: Bones: There is normal bony alignment, trabecular pattern is normal. No fractures or focal lytic or sclerotic bony lesions. Incidental note of plantar spur. Joints: Visualized joint spaces are maintained. No subluxation or displacement. No periarticular erosions. Minimal osteophyte formation at the tibiotalar articulation.. Soft tissues: Normal appearance of the soft tissues. No radiopaque foreign bodies noted. RAD/Foot min 3 Views IMPRESSION: 1. No fracture, subluxation, focal bony or joint space abnormality. 2. Incidental note of plantar spur. No destructive bony process. Electronically Signed: Stevie Brandon MD at 19:57 EDT ,
[2022-11-19 11:12] LABS: Erythrocyte Sedimentation Rate 18 mm/hr (0-30)
[2022-11-19 11:14] LABS: Absolute Lymphocyte Count 2.28 X10^3/uL (0.83-4.51); Absolute Neutrophil Count 10.9 X10^3/uL (2.0-7.7); Basophil# 0.05 X10^3/uL; Basophil% 0.4 % (0-1); Eosinophils% 0.7 % (0-5); Hematocrit 40.2 % (37-47); Hemoglobin 13.9 g/dL (12.0-15.0); Lymphocyte # 2.28 X10^3/ul (0.83-4.51); Lymphocyte % 16.1 % (19-41); Mean Corp Hgb Conc 34.6 g/dL (32-36); Mean Corpuscular Hgb 32.3 pg (27.0-32.0); Mean Corpuscular Volume 93.5 fL (81-99); Mean Platelet Vol. 11.9 fl (6.2-12.0); Monocyte# 0.79 X10^3/uL; Monocyte% 5.6 % (0-10); NRBC Flagged by Analyzer 0 % (0-5); Neutrophil # 10.89 X10^3/uL (2.7-7.7); Neutrophil % 76.7 % (47-70); Platelet Count 444 K/mm3 (150-450); RBC Distribution Width CV 12.7 % (11.6-14.6); RBC Distribution Width SD 43.5 fl (35.1-43.9); White Blood Count 14.2 K/mm3 (4.4-11.0)
[2022-11-19 11:23] LABS: Hemoglobin A1c 13.3 % (3.8-5.6)
[2022-11-19 11:31] LABS: Vitamin D,25 Hydroxy 102.9 ng/mL
[2022-11-19 11:39] LABS: ALB/GLOB Ratio 0.6 RATIO (0.9-2.4); AST(SGOT) 15 U/L (15-37); Alanine Aminotransfer ALT/SGPT 21 U/L (13-56); Albumin, Serum 2.7 g/dL (3.2-5.0); Alkaline Phosphatase 104 U/L (45-117); Anion Gap 10 (5-15); BUN 34 mg/dL (7-18); BUN/Creat Ratio 27.2 RATIO (10-20); Calcium,Total 9.7 mg/dL (8.5-10.1); Chloride 95 mmol/L (98-107); Creatinine, Serum 1.25 mg/dL (0.55-1.02); EST Glomerular Filtration Rate 46 mL/min (>60); Est Glom Filt Rate - Afr Amer 56 mL/min (>60); Free T3 2.1 pg/mL (2.18-3.98); Globulin 4.7 g/dL (2.2-4.2); Glucose 363 mg/dL (74-106); Potassium 3.9 mmol/L (3.5-5.1); Protein, Total 7.4 g/dL (6.4-8.2); Sodium Level 130 mmol/L (136-145); T4 Free Direct 1.48 ng/dL (0.76-1.46); Thyroid Stim Hormone (TSH) 1.66 uIU/mL (0.358-3.74)
== END 2022-11-23 23:59 | disposition home or self-care (01) ==
LOC: WC 08:40
PROVIDERS: PCP Family Medicine; Referring Provider Orthopaedic Surgery; Visit Provider Student in an Organized Health Care Education/Training Program
DX: E11.621 Type 2 diabetes mellitus with foot ulcer (principal); L97.222 Non-pressure chronic ulcer of left calf with fat layer exposed; G35 Multiple sclerosis; E11.42 Type 2 diabetes mellitus with diabetic polyneuropathy; E78.5 Hyperlipidemia, unspecified; Z79.84 Long term (current) use of oral hypoglycemic drugs; I10 Essential (primary) hypertension; Z91.199 Patient's noncompliance with other medical treatment and regimen due to unspecified reason; E66.9 Obesity, unspecified; Z79.899 Other long term (current) drug therapy; E55.9 Vitamin D deficiency, unspecified
CPT/HCPCS: 11042; 36415; 73610; 73630; 80053; 82306; 83036; 84436; 84439; 84443; 84481; 85025; 85652; 86140; 87070; 87075; 87186; 87205; 99213; G0463

== ENCOUNTER 2022-12-03 09:45 | Outpatient (RCR) | payer MEDICARE, SELFPAY ==
[2022-11-24 00:43] VITALS: BP 132/62; PULSE 90; RESP 20; TEMP 36.1
--- NOTE | 2022-11-24 12:45 | ART_ITS ---
Reason For Study: LLE Wound Procedure A bilateral lower extremity continuous wave Doppler with analog waveform analysis,segmental pressures,and ankle brachial indexes without exercise. Left Segmental Pressures Left brachial= 86mmHg. Left posterior tibial artery = 124mmHg. Left dorsalis pedis artery = 115mmHg. Left digit = 84 mmHg. The left posterior tibial artery waveforms are triphasic. The left dorsalis pedis waveforms are triphasic. Right Segmental Pressures Right brachial= 82mmHg. Right posterior tibial artery = 131mmHg. Right dorsalis pedis artery = 120mmHg. Right digit = 116 mmHg. The right posterior tibial artery waveforms are triphasic. The right dorsalis pedis waveforms are triphasic. Indices The right ankle brachial index by the posterior tibial artery is 1.52. The right ankle brachial index by the dorsalis pedis is 1.40. The right digital-brachial index is 1.35. The left ankle brachial index by the posterior tibial artery is 1.44. The left ankle brachial index by the dorsalis pedis is 1.34. The left digital-brachial index is 0.98. Obtained a Lt Brachial BP of 90/60 before releasing the patient. Left a message at Dr. Beauchamp's office about patient's BP with Tiburcio and said would follow up. VL/Lower Ext Art Exam w/o Exercis Interpretation Summary Triphasic Doppler waveforms are noted at ankle level bilaterally. Pulse-volume recordings appear diminished at ankle and digital levels on the right, but satisfactory at all ot her levels bilaterally. Resting ankle-brachial indices are supra-normal bilaterally. Digit al-brachial indices are normal bilaterally. There is evidence of arterial calcification in the lower extremities bilaterall y. There is no evidence of significant arterial occlusive disease in the lower extremities rajendra aterally. Ordering Physician: Raphael Beauchamp Referring Physician: RAPHAEL BEAUCHAMP DPM Performed By: Stuart Aponet RVT
--- NOTE | 2022-11-24 12:46 | VDLE_ITS ---
Reason For Study: LLE Wound RIGHT LEFT CFV is compressible, spontaneous, phasic, CFV is compressible, spontaneous, phasic, competent and demonstrates normal competent, and demonstrates normal augmentation. augmentation. FV is compressible, spontaneous, phasic, FV is compressible, spontaneous, phasic, competent and demonstrates normal competent and demonstrates normal augmentation. augmentation. POP V is compressible, spontaneous, phasic, POP V is compressible, spontaneous, phasic, competent and demonstrates normal competent and demonstrates normal augmentation. augmentation. T/P Trunk is compressible. T/P Trunk is compressible. PTV is compressible. PTV is compressible. RT PerV is compressible. LT PerV is compressible. SFJ is competent and measures 0.50 cm. SFJ is competent and measures 0.67 cm. GSV proximal thigh measures 0.42 x 0.42 cm. GSV proximal thigh measures 0.51 x 0.53 cm. GSV at knee measures 0.40 x 0.42 cm. GSV at knee measures 0.57 x 0.61 cm. GSV is competent throughout. GSV is competent throughout. SSV proximal calf is competent and measures SSV proximal calf is competent and measures 0.21 x 0.22 cm. 0.22 x 0.26 cm. Procedure Exam performed in department. The exam was diagnostic. VL/Venous Duplex US - Allen Extrem Interpretation Summary Deep veins of the lower extremities are bilaterally patent and compressible seg mentally. There is no evidence of deep vein thrombosis on either side. Valvular competence appears in tact within the proximal deep venous systems bilaterally. The great saphenous veins appear bila terally patent and compressible segmentally. Sapheno-femoral junctions are bilaterally competent . Valvular competence appears to be intact segmentally within the great saphenous veins bilaterally. Small saphenous veins are patent and competent bilaterally. Referring Physician: Dominguez Vidales Performed By: Stuart Aponte RVT
[2022-11-26 09:12] VITALS: BP 155/79; PULSE 109; RESP 20; TEMP 36.4
--- NOTE | 2022-11-26 09:31 | PN.PCM_ITS ---
History of Present Illness Date of Service: 11/26/22 Chief Complaint: Left posterior leg/heel wound History of Wound: Patient is a 62-year-old female with PMHx of diabetes mellitus type 2 with peripheral polyneuropathy complicated by noncompliance, HLD, HTN, Multiple Sclerosis, and obesity. She states that 4 weeks ago she developed irritation to the back of her left heel secondary to shoe gear rubbing. She states at that time she was moving and did not have time to slow down and thought the issue would resolve on its own. She however did breakdown developing ulceration to the posterior aspect of the heel near the distal aspect of the Achilles tendon insertion this ulceration continue to worsen with exposure of the Achilles tendon/fascia covering of the tendon. She did see her service center specialist who placed her on antibiotics, doxycycline and ciprofloxacin, following some localized redness of the ulcerative site. She was also placed into a surgical shoe for offloading. Due to the depth of the ulcerative site she was referred to the wound care center for continued care. She currently denies any N/V/F/chills. She denies further complaints today. Subjective Subjective This is a 62-year-old female with history of uncontrolled diabetes mellitus type 2 who presents to the wound care center for follow-up of left posterior heel/Achilles tendon ulceration. She does cite some continued redness about her wound and ankle but does state it had improved some on oral antibiotics. She states she has completed the oral antibiotic course. She denies any constitutional symptoms today. Denies further complaints today. Objective Data Objective Data Vital Signs: Vital Signs Temp Pulse Resp BP 97.5 F L 109 H 20 H 155/79 H 11/26/22 09:12 11/26/22 09:12 11/26/22 09:12 11/26/22 09:12 Physical Exam Const alert, oriented x3, no apparent distress and well nourished General Appearance: cooperative HEENT normocephalic Eyes General Eye: normal appearance of both eyes Neck General: normal visual inspection Lymph Lymphatic: no lymphadenopathy noted and no lymphedema noted Resp normal respiratory effort Cardio regular rate and regular rhythm Extremity Extremity Narrative: DP and PT pulses weakly palpable bilaterally. Capillary fill time less than 5 seconds to the digits bilateral. Dermatological: Skin appears well-hydrated with normal turgor. There is an ulceration noted to the posterior aspect of the distal leg near the insertion of the Achilles tendon with exposure of the Achilles tendon/fascia noted. Wound e dges are rolled. Margins of the wound appear healthy and granular. There is localized erythema about the wound and proximal posterior lower leg. There is slight malodor. No purulent drainage, no palpable fluctuance/bogginess noted, no visible abscess formation, no lymphangitic streaking. Musculoskeletal: Muscle strength 5 of 5 age-appropriate bilateral. Decreased range of motion of the ankle joint bilateral with the knee extended without pain or crepitus. No pain to palpation about the ulcerative site. Skin no rashes or lesions noted, skin turgor normal and no jaundice Neuro moves all extremities Neuro Narrative: Decreased protective sensation consistent with diabetic peripheral polyne uropathy Debridement Note Debridement Note Wound debrided: Left lower extremity Laterality: Left Wound Grade/Stage: Melvin stage II Type of Debridement: Excisional debridement Anesthesia Used: 5% Lidocaine Gel Depth: Down to and including healthy tissue and in the subcutaneous layer Percentage of wound debrided: 100 Instrument Used: 5mm curette Tissue Removed: Fibrous, devitalized subcutaneous, biofilm, slough Severity: Fat Layer Exposed Amount of bleeding with debridement: Mild Bleeding Controlled with: Compression and gauze Patient tolerated procedure: Patient tolerated procedure well Post-Debridement Measurements and Additional Note: Post-Debridement Measurements/Treatment - Nurse 1 - General Ulcer Assessment Start: 11/26/22 09:12 Freq: Status: Active Protocol: NANY Activity Type Activity Date Activity User E-sign Co-sign Detail Recorded Client Recorded Date Recorded By Document 11/26/22 09:12 DL [id number] 11/26/22 09:18 DL 11/26/22 09:12 - Today's Visit Information Type of service Follow-up Visit (Physician/RESPIRATORY SUPERVISOR ) Arrival Mode Ambulatory Patient Identification Verified (Name & Yes ) Patient Requires Transmission-Based No Precautions Finger Stick Blood Sugar(mg/dl) (if 220 indicated): Blood Sugar Stated by Patient Vital Signs Temperature (97.8 F-99.1 F) 97.5 F L Temperature Source Temporal Pulse Rate (60-100) 109 H Pulse Location Monitor Respiratory Rate (12-18) 20 H Respiratory rate source Observation Blood Pressure (90/60-120/80) 155/79 H Blood Pressure Mean (mm Hg) 104 Source Monitor History Since Last Visit- (Skip if this is Patient's initial visit) Have you changed medications since your No last visit? Any new allergies or adverse reactions No Had a fall/change in ADL's that may No increase risk of falls Signs or symptoms of abuse and/or No neglect since last visit Have you been in the hospital since your Yes last visit? Has dressing in place as prescribed Yes Has compression in place as prescribed Yes Has offloadiing in place as prescribed Yes Experienced any changes in pain level or No management Pain Scale: 0-10 Numeric Is Patient Pain Free? Yes WC - Nurse 1 - General Ulcer Measurement Start: 11/26/22 09:12 Freq: Status: Active Protocol: Activity Type Activity Date Activity User E-sign Co-sign Detail Recorded Client Recorded Date Recorded By Document 11/26/22 09:12 DL [id number] 11/26/22 09:18 DL 11/26/22 09:12 Wound Center Nurse 1 #1 L Heel -Current Size (cm) - Length 2.5 -Current Size (cm) - Width 3 -Current Size (cm) - Depth 0.4 -Total Square Cm 7.5 -Photo Taken No -Exudate Amt Medium -Exudate Type Serosanguineous -Wound Margin Distinct, Outline Attached -Granulation Amt Medium (34-66%) -Granulation Quality [place] -Necrosis Amt Medium (34-66%) -Necrotic Tissue Type Adherent Slough -Structure Exposed Tendon,Fascia -Texture (Martha-wound Skin Appearance) Localized Edema ,Scarring -Moisture (Martha-wound Skin Appearance) No Abnormality -Color (Martha-wound Skin Appearance) Erythema -Temperature (Martha-wound Skin No Abnormality Appearance) (Pt Warm) -Tenderness on Palpation (Martha-wound Yes Skin Appearance) -Ulcer Cleansing Soap and Water -Foul Odor after Cleansing No -Anesthetic Used 5% Lidocaine Gel Assessment/Plan Assessment/Plan (1) 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: CODE(S): L97.223 - 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 (2) Type 2 diabetes mellitus with foot ulcer: CODE(S): E11.621 - Type 2 diabetes mellitus with foot ulcer; L97.509 - Non-pressure chronic ulcer of other part of unspecified foot with unspecified severity (3) Uncontrolled diabetes mellitus: (4) Diabetes mellitus with diabetic polyneuropathy: CODE(S): E11.42 - Type 2 diabetes mellitus with diabetic polyneuropathy (5) Essential (primary) hypertension: CODE(S): I10 - Essential (primary) hypertension PLAN: Plan Patient seen and evaluated There is an ulceration noted to the posterior aspect of the distal leg near the insertion of the Achilles tendon with exposure of the Achilles tendon/fascia noted. Wound edges are rolled. Margins of the wound appear healthy and granular. There is localized erythema about the wound and proximal posterior lower leg. There is slight malodor. No purulent drainage, no palpable fluctuance/bogginess noted, no visible abscess formation, no lymphangitic streaking. Swab cultures and tissue cultures obtained of the site demonstrating: E. faecalis; Staphylococcus capitis; Proteus mirabilis; and Streptococcus parasanguinis Laboratory data ordered 11/19/2022 and reviewed. WBC 14.2, no left shift. ESR 18, CRP 122, vitamin D 102.9, albumin 2.7, glucose 363. Hemoglobin A1c 13.3%, this is minimally decreased from last reported A1c in 2021 of 14%. Patient was previously prescribed doxycycline/Cipro and has finished oral antibiotic to completion. Due to some continued redness and positive culture results she has been started on doxycycline 100 mg twice daily x14 days and levofloxacin 750 mg twice daily x14 days. Start date 11/26/2022, stop date 12/10/2022. Ulcerative site underwent debridement as noted in clinical panel above. Ulcerative site measures 2.5 cm x 3.1 cm x 0.4 cm. Dakin's was discontinued today. EpiFix graft #1 applied to ulcerative base and dressed with Adaptic touch and anchored with Steri-Strips. Dry sterile dressing applied. She was instructed to change outer dressings as needed. Discussed continuing Prevalon offloading boot to be worn when sitting in chair with feet elevated or while sleeping at night. She is to continue to offload in surgical shoe at all times of ambulation. There is slight improvement with reduction in size vs previous visit. Discussed that this wound is deep and with the level being close proximity of the Achilles tendon creates complication for developing infection that would travel up the leg. Discussed high risk of amputation if infection does set in. Discussed A1c complicates healing and increases risk of infection and amputation. She voices understanding of our discussion today. LEAS ordered and performed 11/24/2022 demonstrating: Triphasic Doppler waveforms noted at ankle level bilateral. PVR diminished at ankle and digital levels on the right, but satisfactory at all levels bilaterally. Resting CÉSAR indices are supranormal bilaterally. Digital brachial indices are normal bilaterally. There is evidence of arterial calcification in the lower extremities bilaterally. There is no evidence of significant arterial occlusive disease in the lower extremities bilaterally. Venous studies ordered and performed 11/24/2022 demonstrating: No evidence of DVT bilateral no valvular incompetence noted. Radiographs of the left foot and ankle were ordered, 11/19/2022. I did review the radiographic images which demonstrate vessel calcification/Monckeberg sign. There is a soft tissue ulceration/defect at the posterior aspect of the heel near the distal insertion site of the Achilles tendon/calcaneus. No evidence of osteomyelitis. Encouraged adequate protein intake to aid in wound healing. She may take Jose Alberto supplementation to aid in wound healing. Discussed proper diabetic diet and encouraged lifestyle management/weight loss to continue to aid in glucose reduction to achieve tight glycemic control. Discussed reduction of her A1c is essential in wound healing. Discussed risks and complications with blood sugars greater than 250mg/dL and elevated A1c greater than 7.5%. Discussed proper diabetic diet to aid in achieving tight glucose control. Discussed regular follow-up with PCP/car shunter to help achieve her A1c goal of is close to 6% as possible. Discussed the importance of ambulating in shoe gear at all times and to never go barefoot, socks include barefoot. Stressed importance of daily foot checks being diabetic. She voices understanding of this. I discussed signs and symptoms of infection today. Discussed if she notices redness continuing to spread from the ulcerative site progressing up the leg, if she has purulent drainage from the wound site, increasing foul odor from the wound site, or if she experiences fever greater than 101 degree, or nausea, vomiting, chills that these are signs of a progressing infection and she needs to report to the ED to receive IV antibiotics. She voices understanding of this today. The following work up and care recommendations were made: Dressing: EpiFix, Adaptic touch, Steri-Strips, dry sterile dressing. Change outer dressings as needed Wash: Do not get wet Tissue growth optimization: EpiFix Offload: Surgical shoe and Prevalon offloading boot Vascular: DP and PT pulses weakly palpable with capillary fill time less than 5 seconds to digits. LEAS and venous studies were ordered and performed 11/24/2022 demonstrating no significant arterial occlusive disease. Edema: No edema noted Infection: Localized erythema about the wound site. Currently on Doxy/Levofloxacin Pain: May take [id number] Tylenol for discomfort Host factors: DM type II with peripheral polyneuropathy complicated by noncompliance, obesity, shoe gear, patient education. I answered all the patient's questions. To return to the wound healing center in 1 week or call sooner if the patient has any questions or concerns.
[2022-12-03 09:54] VITALS: BP 140/77; PULSE 135; RESP 20; TEMP 36.6
--- NOTE | 2022-12-03 09:59 | PCM.WC.PN ---
History of Present Illness Date of Service: 12/03/22 Chief Complaint: Left posterior leg/heel wound History of Wound: Patient is a 62-year-old female with PMHx of diabetes mellitus type 2 with peripheral polyneuropathy complicated by noncompliance, HLD, HTN, Multiple Sclerosis, and obesity. She states that 4 weeks ago she developed irritation to the back of her left heel secondary to shoe gear rubbing. She states at that time she was moving and did not have time to slow down and thought the issue would resolve on its own. She however did breakdown developing ulceration to the posterior aspect of the heel near the distal aspect of the Achilles tendon insertion this ulceration continue to worsen with exposure of the Achilles tendon/fascia covering of the tendon. She did see her clin application specialist who placed her on antibiotics, doxycycline and ciprofloxacin, following some localized redness of the ulcerative site. She was also placed into a surgical shoe for offloading. Due to the depth of the ulcerative site she was referred to the wound care center for continued care. She currently denies any N/V/F/chills. She denies further complaints today. Subjective Subjective This is a 62-year-old female with history of uncontrolled diabetes mellitus type 2 who presents to the wound care center for follow-up of left posterior heel/Achilles tendon ulceration. She does cite some continued redness about her wound and ankle but does state it had improved some on oral antibiotics. She reports placing foot down earlier this week and felt ripping in the back of the leg. Denies pain due to her neuropathy. She denies any constitutional symptoms today. Denies further complaints today. Objective Data Objective Data Vital Signs: Vital Signs Temp Pulse Resp BP 97.5 F L 109 H 20 H 155/79 H 11/26/22 09:12 11/26/22 09:12 11/26/22 09:12 11/26/22 09:12 Physical Exam Const alert, oriented x3, no apparent distress and well nourished General Appearance: cooperative HEENT normocephalic Eyes General Eye: normal appearance of both eyes Neck General: normal visual inspection Lymph Lymphatic: no lymphadenopathy noted and no lymphedema noted Resp normal respiratory effort Cardio regular rate and regular rhythm Extremity Extremity Narrative: DP and PT pulses weakly palpable bilaterally. Capillary fill time less than 5 seconds to the digits bilateral. Dermatological: Skin appears well-hydrated with normal turgor. There is an ulceration noted to the posterior aspect of the distal leg near the insertion of the Achilles tendon with exposure of the Achilles tendon/fascia noted. Wound edges are rolled. Margins of the wound appear healthy and granular. There is localized erythema about the wound and proximal posterior lower leg. There is slight malodor. Slight purulence expressible from 1 o'clock position. No palpable fluctuance/bogginess noted, no visible abscess formation, no lymphangitic streaking. Musculoskeletal: Muscle strength 5 of 5 age-appropriate bilateral. Decreased range of motion of the ankle joint bilateral with the knee extended without pain or crepitus. No pain to palpation about the ulcerative site. Skin no rashes or lesions noted, skin turgor normal and no jaundice Neuro moves all extremities Neuro Narrative: Decreased protective sensation consistent with diabetic peripheral polyneuropathy Debridement Note Debridement Note No debridement was completed: No debridement was completed today Post-Debridement Measurements and Additional Note: Post-Debridement Measurements/Treatment SHANTEL - Nurse 1 - General Ulcer Assessment Start: 11/26/22 09:12 Freq: Status: Active Protocol: NANY Activity Type Activity Date Activity User E-sign Co-sign Detail Recorded Client Recorded Date Recorded By Document 11/26/22 09:12 DL [id number] 11/26/22 09:18 DL 11/26/22 09:12 - Today's Visit Information Type of service Follow-up Visit (Physician/SOAP GRINDER ) Arrival Mode Ambulatory Patient Identification Verified (Name & Yes ) Patient Requires Transmission-Based No Precautions Finger Stick Blood Sugar(mg/dl) (if 220 indicated): Blood Sugar Stated by Patient Vital Signs Temperature (97.8 F-99.1 F) 97.5 F L Temperature Source Temporal Pulse Rate (60-100) 109 H Pulse Location Monitor Respiratory Rate (12-18) 20 H Respiratory rate source Observation Blood Pressure (90/60-120/80) 155/79 H Blood Pressure Mean (mm Hg) 104 Source Monitor History Since Last Visit- (Skip if this is Patient's initial visit) Have you changed medications since your No last visit? Any new allergies or adverse reactions No Had a fall/change in ADL's that may No increase risk of falls Signs or symptoms of abuse and/or No neglect since last visit Have you been in the hospital since your Yes last visit? Has dressing in place as prescribed Yes Has compression in place as prescribed Yes Has offloadiing in place as prescribed Yes Experienced any changes in pain level or No management Pain Scale: 0-10 Numeric Is Patient Pain Free? Yes WC - Nurse 1 - General Ulcer Measurement Start: 11/26/22 09:12 Freq: Status: Active Protocol: Activity Type Activity Date Activity User E-sign Co-sign Detail Recorded Client Recorded Date Recorded By Document 11/26/22 09:12 DL [id number] 11/26/22 09:18 DL 11/26/22 09:12 Wound Center Nurse 1 #1 L Achilles -Current Size (cm) - Length 2.5 -Current Size (cm) - Width 3 -Current Size (cm) - Depth 0.4 -Total Square Cm 7.5 -Photo Taken No -Exudate Amt Medium -Exudate Type Serosanguineous -Wound Margin Distinct, Outline Attached -Granulation Amt Medium (34-66%) -Granulation Quality [place] -Necrosis Amt Medium (34-66%) -Necrotic Tissue Type Adherent Slough -Structure Exposed Tendon,Fascia -Texture (Martha-wound Skin Appearance) Localized Edema ,Scarring -Moisture (Martha-wound Skin Appearance) No Abnormality -Color (Martha-wound Skin Appearance) Erythema -Temperature (Martha-wound Skin No Abnormality Appearance) (Pt Warm) -Tenderness on Palpation (Martha-wound Yes Skin Appearance) -Ulcer Cleansing Soap and Water -Foul Odor after Cleansing No -Anesthetic Used 5% Lidocaine Gel SHANTEL - Nurse 2 - General Ulcer CM Notes Start: 11/26/22 09:12 Freq: Status: Active Protocol: Activity Type Activity Date Activity User E-sign Co-sign Detail Recorded Client Recorded Date Recorded By Document 11/26/22 14:22 PL [id number] 11/26/22 14:24 PL 11/26/22 14:22 Wound Center Nurse 2 -Time 09:47 -Correct Patient Yes -Correct Side, Site, Position Yes -Correct Procedure Yes -Procedure Performed Yes -Type of Procedure Debridement -Clinical Debridement Subcutaneous -Tissue Removed Subcutaneous -Post Debridement (cm) - Length 2.5 -Post Debridement (cm) - Width 3.1 -Post Debridement (cm) - Depth 0.4 -Total Square (Post) (cm) 7.75 -Area of Debridement (cm) - Length 2.5 -Area of Debridement (cm) - Width 3.1 -Total Square (Area) (cm) 7.75 -Tunneling No -Undermining/Tunneling No -Circular Undermining No -Wound/Ulcer Outcome Not Healed -Ulcer Cleansing Rinsed/ Irrigated with Saline -Foul Odor after Cleansing No -Bioengineered Tissue Yes -Type of Bioengineered Tissue Epifix Mesh -Expiration Date 07/26/27 -Product Lot Number [id number] -Percent Used 100 -Bleeding Controlled with Pressure -Treatment Response Procedure Tolerated Well -Debridement - Subq, 1st 20sq cm No -Apply Skin Sub - 1st 25 sq cm - Legs 1 -Epifix Mesh (per sq cm) 11 Pain Scale: 0-10 Numeric Is Patient Pain Free? Yes - Nurse 3 - General Ulcer D/C NN Start: 11/26/22 09:12 Freq: Status: Active Protocol: Activity Type Activity Date Activity User E-sign Co-sign Detail Recorded Client Recorded Date Recorded By Document 11/26/22 10:27 DL [id number] 11/26/22 10:28 DL 11/26/22 10:27 Wound Care Center Nurse 3 #1 L Achilles -Foul Odor after Cleansing No -Other Dressing epifix -Primary Dressing Covered/Secured with Dry Gauze & Roll Gauze, Secured with Tape Left -Tubular Bandage Single Layer -Size of Tubigrip Used Size E -Size E ($) 1 Treatment Response Procedure Tolerated Well Pain Scale: 0-10 Numeric Is Patient Pain Free? 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 (2) Type 2 diabetes mellitus with foot ulcer: CODE(S): E11.621 - Type 2 diabetes mellitus with foot ulcer; L97.509 - Non-pressure chronic ulcer of other part of unspecified foot with unspecified severity (3) Uncontrolled diabetes mellitus: (4) Diabetes mellitus with diabetic polyneuropathy: CODE(S): E11.42 - Type 2 diabetes mellitus with diabetic polyneuropathy (5) Essential (primary) hypertension: CODE(S): I10 - Essential (primary) hypertension PLAN: Plan Patient seen and evaluated Earlier this week she states she went to put the foot down to continue ambulating and states that she could feel like everything ripped in the lower leg. The Joe test was performed with noted tendon to be intact however weaker response compared to contralateral limb. I do fear that she has a partial tear of the left Achilles tendon and due to appearance of the ulcerative site as stated below likely infection with failure of outpatient antibiotic. Today 12/03/22 : There is an ulceration noted to the posterior aspect of the distal leg near the insertion of the Achilles tendon with exposure of the Achilles tendon/fascia noted with some necrosis of the tissue/tendon. Wound edges are rolled. There is localized erythema about the wound and proximal posterior lower leg. There is slight malodor and slight amount of expressible purulence at the 1 O'clock position. No palpable fluctuance/bogginess noted, no visible abscess formation, no lymphangitic streaking. Ulcerative site does appear worsening in nature vs previous visit with likely tear of Left Achilles tendon. Swab cultures and tissue cultures obtained 11/19/22 of the site demonstrating: E. faecalis; Staphylococcus capitis; Proteus mirabilis; and Streptococcus parasanguinis Laboratory data ordered 11/19/2022 and reviewed. WBC 14.2, no left shift at that time. ESR 18, CRP 122, vitamin D 102.9, albumin 2.7, glucose 363. Hemoglobin A1c 13.3%, this is minimally decreased from last reported A1c in 2021 of 14%. Patient was previously prescribed doxycycline/Cipro and has finished oral antibiotic to completion. Due to some continued redness and positive culture results she has been started on doxycycline 100 mg twice daily x14 days and levofloxacin 750 mg twice daily x14 days. Start date 11/26/2022, stop date 12/10/2022. Today 12/03/22 she has continued redness with some expressible purulence from the 1 o'clock position she has failed out patient antibiotics and recommended ED visit for admission with debridement of Achilles tendon. Ulcerative site did not undergo debridement today. Ulcerative site measures 2.5 cm x 3.1 cm x 0.6 cm. Dakin's was discontinued today. EpiFix graft #1 applied to ulcerative base at last visit. Dry sterile dressing applied today. She was instructed to go to ED for IV antibiotics, MRI for evaluation of tendon tear of Left Achilles, and likely debridement of the Achilles tendon Left leg. Discussed that this wound is deep and with the level being close proximity of the Achilles tendon creates complication for developing infection that would travel up the leg. Discussed high risk of amputation if infection does set in. Discussed A1c complicates healing and increases risk of infection and amputation. She voices understanding of our discussion today. LEAS ordered and performed 11/24/2022 demonstrating: Triphasic Doppler waveforms noted at ankle level bilateral. PVR diminished at ankle and digital levels on the right, but satisfactory at all levels bilaterally. Resting CÉSAR indices are supranormal bilaterally. Digital brachial indices are normal bilaterally. There is evidence of arterial calcification in the lower extremities bilaterally. There is no evidence of significant arterial occlusive disease in the lower extremities bilaterally. Venous studies ordered and performed 11/24/2022 demonstrating: No evidence of DVT bilateral no valvular incompetence noted. Radiographs of the left foot and ankle were ordered, 11/19/2022. I did review the radiographic images which demonstrate vessel calcification/Monckeberg sign. There is a soft tissue ulceration/defect at the posterior aspect of the heel near the distal insertion site of the Achilles tendon/calcaneus. No evidence of osteomyelitis. Encouraged adequate protein intake to aid in wound healing. She may take Jose Alberto supplementation to aid in wound healing. Discussed proper diabetic diet and encouraged lifestyle management/weight loss to continue to aid in glucose reduction to achieve tight glycemic control. Discussed reduction of her A1c is essential in wound healing. Discussed risks and complications with blood sugars greater than 250mg/dL and elevated A1c greater than 7.5%. Discussed proper diabetic diet to aid in achieving tight glucose control. 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 Discussed she has some work to do to decrease from 13.3%. Discussed the importance of ambulating in shoe gear at all times and to never go barefoot, socks include barefoot. Stressed importance of daily foot checks being diabetic. She voices understanding of this. I discussed signs and symptoms of infection today. Discussed if she notices redness continuing to spread from the ulcerative site progressing up the leg, if she has purulent drainage from the wound site, increasing foul odor from the wound site, or if she experiences fever greater than 101 degree, or nausea, vomiting, chills that these are signs of a progressing infection and she needs to report to the ED to receive IV antibiotics. She voices understanding of this today. The following work up and care recommendations were made: Dressing: EpiFix, Adaptic touch, Steri-Strips, dry sterile dressing. Change outer dressings as needed Wash: Do not get wet Tissue growth optimization: EpiFix Offload: Surgical shoe and Prevalon offloading boot Vascular: DP and PT pulses weakly palpable with capillary fill time less than 5 seconds to digits. LEAS and venous studies were ordered and performed 11/24/2022 demonstrating no significant arterial occlusive disease. Edema: No edema noted Infection: Localized erythema about the wound site. Currently on Doxy/Levofloxacin Pain: May take iulc-fun-akovdue Tylenol for discomfort Host factors: DM type II with peripheral polyneuropathy complicated by noncompliance, obesity, shoe gear, patient education. I answered all the patient's questions. Discussed going to ED today to receive IV antibiotics, MRI of left Achilles tendon to evaluate for partial tear, and likely debridement of the left Achilles tendon.
== END 2022-12-24 23:59 ==
LOC: WC 09:45
PROVIDERS: PCP Family Medicine; Referring Provider Orthopaedic Surgery; Visit Provider Student in an Organized Health Care Education/Training Program
DX: E11.621 Type 2 diabetes mellitus with foot ulcer (principal); L97.422 Non-pressure chronic ulcer of left heel and midfoot with fat layer exposed; L97.423 Non-pressure chronic ulcer of left heel and midfoot with necrosis of muscle; G35 Multiple sclerosis; E11.42 Type 2 diabetes mellitus with diabetic polyneuropathy; I70.203 Unspecified atherosclerosis of native arteries of extremities, bilateral legs; Z79.4 Long term (current) use of insulin; I10 Essential (primary) hypertension; E78.5 Hyperlipidemia, unspecified; Z91.199 Patient's noncompliance with other medical treatment and regimen due to unspecified reason; Z79.899 Other long term (current) drug therapy; B96.89 Other specified bacterial agents as the cause of diseases classified elsewhere; R29.898 Other symptoms and signs involving the musculoskeletal system; R60.0 Localized edema
CPT/HCPCS: 15271; 93923; 93970; 99213; Q4186; G0463

== ENCOUNTER 2022-12-03 10:54 | Inpatient (IN) | payer MEDICARE, SELFPAY ==
[2022-12-03 10:55] VITALS: BP 130/75; PULSE 145; RESP 18; TEMP 36.6; O2SAT 100
[2022-12-03 10:56] VITALS: BMI 40.7
--- NOTE | 2022-12-03 11:25 | RAD_ITS ---
STUDY: X-RAY - LEFT ANKLE REASON FOR EXAM: Female, 62 years old. Recent surgery. Soft tissue swelling. TECHNIQUE: 3 view(s) of the ankle. COMPARISON: None. FINDINGS: Normal visualized distal tibia and fibula. Normal medial and lateral malleoli. Normal tibiotalar articulation and ankle mortise. Plantar spur. The visualized subtalar, talonavicular, calcaneocuboid and tarsal articulations are normal. Diffuse soft tissue swelling. Soft tissue ulceration overlying the posterior superior aspect of the calcaneus. RAD/Ankle min 3 Views IMPRESSION: Soft tissue swelling and ulceration overlying the posterior aspect of the calcaneus. Plantar spur. Electronically Signed: Juan Miguel Gomez MD at 12:03 EDT ,
--- NOTE | 2022-12-03 11:25 | RAD_ITS ---
STUDY: X-RAY - LEFT FOOT CLINICAL: Female, 62 years old. Recent surgery. Infection. TECHNIQUE: 3 view(s) of the foot. COMPARISON: Comparison is made with prior study dated November 19, 2022. FINDINGS: There is a plantar calcaneal spur. Normal visualized subtalar, talonavicular, calcaneocuboid, tarsal and tarsometatarsal articulations. Normal metatarsi. Normal metatarsophalangeal joint of the great toe. Normal tibial and fibular sesamoid bones. Normal interphalangeal joint of the great toe. Normal phalanges of the great toe. Normal second through fifth metatarsophalangeal joints. Normal interphalangeal joints and phalanges of the lesser toes. Soft tissue swelling. Also lytic lesion overlying the posterior superior aspect of the calcaneus. RAD/Foot min 3 Views IMPRESSION: Diffuse soft tissue swelling. Ulcerated lesion overlying the posterior superior aspect of the calcaneus. This is new as compared to prior study. Electronically Signed: Juan Miguel Gomez MD at 12:08 EDT ,
--- NOTE | 2022-12-03 11:26 | EDS_ITS ---
HPI History of Present Illness Chief Complaint: Wound Check Narrative Narrative: 62-year-old female presenting with nonhealing wound to the left heel. She states this started as an abrasion slowly got worse. She sees Dr. Beauchamp for it. She has been on Cipro and doxycycline and is still getting worse. Patient denies fever, chills. She does have worsening pain in her Achilles region. She states that Dr. Beauchamp recommended she come to the ER for evaluation and admission for IV antibiotics. [facility] Medical History Diabetes Hypertension Multiple sclerosis Home Medications atenolol 100 mg tablet 100 mg PO DAILY 02/22/15 [History Last Taken 11/26/22] glimepiride 4 mg tablet 4 mg PO BID 07/01/22 [History Last Taken 12/03/22] hydroxyzine pamoate 25 mg capsule 25 mg PO DAILY 07/01/22 [History Last Taken 12/02/22] insulin detemir U-100 100 unit/mL (3 mL) subcutaneous pen (Levemir FlexPen) 40 unit subcut QHS 07/01/22 [History Last Taken 12/02/22] pravastatin 20 mg tablet 20 mg PO QHS 07/01/22 [History Last Taken 12/02/22] tizanidine 2 mg tablet 2 mg PO TID PRN spasms 07/01/22 [History Last Taken 12/02/22] dulaglutide 0.75 mg/0.5 mL subcutaneous pen injector (Trulicity) 0.75 mg subcut QWEEK 11/19/22 [History Last Taken 11/25/22] Lactobacillus acidophilus 10 billion cell capsule (Probiotic) 100 mmu cells PO DAILY 12/03/22 [History Last Taken 12/03/22] arginine 7 gram-glutamine 7 gram-calcium HMB 1.5 gram oral powder pack (Jose Alberto) 1 ea PO BID SUPPLEMENT 12/03/22 [History Last Taken 12/02/22] cholecalciferol (vitamin D3) 125 mcg (5,000 unit) capsule 250 mcg PO DAILY 12/03/22 [History Last Taken 12/03/22] doxycycline hyclate 100 mg tablet 100 mg PO BID 12/03/22 [History Last Taken 12/03/22] hydrochlorothiazide 25 mg tablet 25 mg PO DAILY FLUID 12/03/22 [History Last Taken Unknown] levofloxacin 750 mg tablet 750 mg PO BID 12/03/22 [History Last Taken 12/03/22] lisinopril 40 mg tablet 40 mg PO DAILY B/P 12/03/22 [History Last Taken 11/26/22] melatonin 5 mg capsule 10 mg PO QHS SLEEP 12/03/22 [History Last Taken 12/02/22] multivitamin with minerals-folic acid 120 mcg chewable tablet (Women's Multivitamin Gummies) 1 tab PO DAILY 12/03/22 [History Last Taken Unknown] Allergy/AdvReac Type Severity Reaction Status Date / Time amoxicillin trihydrate Allergy Rash Verified 12/03/22 10:57 [From Augmentin] diflunisal [From Dolobid] Allergy Rash Verified 12/03/22 10:57 moxifloxacin HCl Allergy Rash Verified 12/03/22 10:57 [From Avelox] potassium clavulanate Allergy Rash Verified 12/03/22 10:57 [From Augmentin] sulfamethoxazole Allergy Rash Verified 12/03/22 10:57 [From Bactrim] trimethoprim [From Bactrim] Allergy Rash Verified 12/03/22 10:57 Social History Smoking Status: Never smoker ROS ROS ED Constitutional Constitutional ED: Denies chills, fever(s) or sweats Eyes Eyes: Denies blurry vision or change in vision ENT ENT ED: Denies ear pain or sore throat Cardiovascular Cardiovascular: Denies chest pain, palpitations or racing heartbeat Respiratory/Chest Respiratory/Chest: Denies cough, dyspnea or sputum Gastrointestinal Gastrointestinal: Denies abdominal pain, constipation, diarrhea, nausea or vomiting Genitourinary Genitourinary ED: Denies dysuria, hematuria or urinary frequency Musculoskeletal Musculoskeletal: Denies arthralgias, myalgias or neck pain Integumentary Reports other Details: Ulceration to the left foot posteriorly at the insertion site of the Achilles ; Denies abscess, Abrasions or rash Neurologic Neurologic: Denies headache(s), paresthesias or weakness Psychiatric Psychiatric: Denies anxiety, depression, suicidal ideation or suicidal thoughts Endocrine Endocrinology: Denies polydipsia or polyuria EXAM Physical Exam Const Vital Signs: 12/03/22 10:55 12/03/22 12:34 12/03/22 14:15 Temperature 97.8 F 97.4 F L Temperature Source Temporal Oral Pulse Rate 145 H 124 H 119 H Respiratory Rate 18 13 Blood Pressure 130/75 H 134/75 H Blood Pressure Mean 93 94 Pulse Ox 100 95 Oxygen Delivery Method Room Air Room Air 12/03/22 14:00 Temperature Temperature Source Pulse Rate Respiratory Rate 18 Blood Pressure Blood Pressure Mean Pulse Ox Oxygen Delivery Method Positive well nourished General Appearance ED: NAD HEENT Reports moist mucous membranes normocephalic Resp normal respiratory effort and no retractions Cardio regular rate and regular rhythm Neuro oriented x3 and CN's II-XII intact bilaterally Sensorium / Orientation: alert Psych mental status grossly normal Skin Skin Narrative: Ulcerated to posterior aspect of distal leg and insertion of the Achilles there is some exposure and necrosis of what seems to be the Achilles tendon versus fascia. Slight odor noted here. There is some purulent drainage. No lymphangitic streaking. MDM MDM MDM Narrative Medical decision making narrative: Patient presenting with left toe pain. She was sent by Dr. Beauchamp. Apparently she has a worsening infection is not healing with antibiotics. She has some erythema and a poorly healing wound on examination. There is drainage and foul odor. CBC will be obtained to assess white blood cell count, hemoglobin, platelets. BMP to assess renal function and electrolytes. ESR and CRP will be obtained as well as x-ray of the foot and ankle. Patient was given morphine and Zofran as well as IV fluids. Differential includes diabetic foot infection, cellulitis. CBC was obtained to assess for white blood cell count, hemoglobin, platelets. BMP to assess renal function electrolytes, glucose. ESR and CRP were obtained as inflammatory markers. X-rays of the foot and ankle were obtained. Patient noted to be tachycardic so she was given a liter of normal saline. I will reevaluate this. Patient has normal blood pressure, respiratory rate, afebrile, 100% on room air. CBC returned with a leukocytosis of 13.0. Hemoglobin [place] are stable. Platelets are normal. Patient appears to be dehydrated based on her lab work. Her BUN is 43 and her creatinine is 1.18. Again she was ordered IV fluids initially. CRP 37.6. ESR 58. Due to her heart rate being fast we did obtain an EKG, troponin, chest x-ray. EKG on my interpretation shows a sinus tachycardia with a ventricular rate of 127 bpm without sign of ischemic change. Right bundle branch block noted. Chest x-ray my interpretation shows no acute process. High-sensitivity troponin within normal limits radiologist services and agrees. X-rays of the left foot and ankle show the noted ulceration on the foot however there is no evidence of osteomyelitis based on x-ray. Podiatry came to see the patient and plan to do surgery tomorrow. Requested admit to medicine. Discussed with Dr. Day who requested a D-dimer. D-dimer was elevated so CTA was performed. CTA negative f or PE or dissection. No evidence of pneumonia. Obtained 2 blood cultures prior to starting antibiotics and she was given ankle Vancomycin/meropenem. Patient admitted in stable condition. Impression: 1. Diabetic foot ulcer 2. Leukocytosis 3. Tachycardia 4. Dehydration Lab Data Attestation: I reviewed the patient's lab results. Labs: Laboratory Results - last 24 hr 12/03/22 11:30 WBC 13.0 H RBC 4.40 Hgb 13.8 Hct 41.2 MCV 93.6 MCH 31.4 MCHC 33.5 RDW Std Deviation 44.2 H RDW Coeff of Yessi 12.9 Plt Count 552 H MPV 10.8 Immature Gran % (Auto) 0.600 Neut % (Auto) 71.2 H Lymph % (Auto) 20.2 [place] % (Auto) 6.3 Eos % (Auto) 1.2 Baso % (Auto) 0.5 Absolute Neuts (auto) 9.2 H Absolute Lymphs (auto) 2.61 Nucleated RBC % 0 ESR 58 H D-Dimer Quant (PE/DVT) 1.02 H* Sodium 134 L Potassium 4.1 Chloride 99 Carbon Dioxide 27.0 Anion Gap 8 BUN 43 H Creatinine 1.18 H Est GFR (MDRD) Af Amer 60 Est GFR (MDRD) Non-Af 49 L BUN/Creatinine Ratio 36.4 H Glucose 250 H Calcium 10.6 H Troponin I High Sens 6 C-React Prot Ext Range 37.60 H Radiography Diagnostic Testing: Clinical Impression(s) from Imaging Studies Ankle X-Ray 12/03/22 11:25 IMPRESSION: Soft tissue swelling and ulceration overlying the posterior aspect of the calcaneus. Plantar spur. Electronically Signed: Juan Miguel Gomez MD at 12:03 EDT , Foot X-Ray 12/03/22 11:25 IMPRESSION: Diffuse soft tissue swelling. Ulcerated lesion overlying the posterior superior aspect of the calcaneus. This is new as compared to prior study. Electronically Signed: Juan Miguel Gomez MD at 12:08 EDT , Chest X-Ray 12/03/22 12:55 IMPRESSION: Elevation of the right hemidiaphragm with blunting of the right costo phrenic angle and mild degree of right basilar linear atelectasis. Electronically Signed: Juan Miguel Gomez MD at 13:13 EDT , Chest CTA 12/03/22 13:22 IMPRESSION: No evidence of pulmonary embolism. Elevation of the right hemidiaphragm with evidence of linear atelectasis and/or scarring in the anterior aspect of the right middle lobe and right lower lobe. Electronically Signed: Juan Miguel Gomez MD at 14:04 EDT , Discharge Plan Triage Chief Complaint: Wound Check ED Provider: Robin Bosch Dx/Rx/DC Orders Prescriptions: No Action atenolol 100 MG tablet 100 mg PO DAILY Patient Comments: PT STATES HAS NOT BEEN TAKING WHILE ON ANTIBIOTICS. BP HAS BEEN LOW WHILE ON ANTIBIOTICS. glimepiride 4 mg Tablet 4 mg PO BID hydroxyzine pamoate 25 mg capsule 25 mg PO DAILY Patient Comments: TAKE 1 CAPSULE BY MOUTH THREE TIMES DAILY NEEDED FOR ANXIETY. pravastatin 20 mg tablet 20 mg PO QHS Levemir FlexPen 100 unit/mL (3 mL) insulin pen 40 unit SUBCUT QHS Patient Comments: INJECT 40 UNITSCSUBCUTANEOUSLY DAILY AT BEDTIME tizanidine 2 mg tablet 2 mg PO TID PRN (Reason: spasms) Trulicity 0.75 mg/0.5 mL pen injector 0.75 mg subcut QWEEK levofloxacin 750 mg tablet 750 mg PO BID Patient Comments: X14 DAYS FILLED AT [facility] ON 11/26/22 doxycycline hyclate 100 mg tablet 100 mg PO BID Patient Comments: X14 DAYS FILLED AT [facility] ON 11/26/22 cholecalciferol (vitamin D3) 125 mcg (5,000 unit) capsule 250 mcg PO DAILY melatonin 5 mg capsule 10 mg PO QHS Jose Alberto 7-7-1.5 gram powder in packet 1 ea PO BID multivit with min-folic acid [Women's Multivitamin Gummies] 120 mcg tablet,chewable 1 tab PO DAILY Probiotic 10 billion cell capsule 100 mmu cells PO DAILY Patient Comments: PT GETS OTC UNSURE OF STRENGTH lisinopril 40 mg tablet 40 mg PO DAILY Patient Comments: PT STATES HAS NOT BEEN TAKING WHILE ON ANTIBIOTICS. BP HAS BEEN LOW WHILE ON ANTIBIOTICS. hydrochlorothiazide 25 mg tablet 25 mg PO DAILY Patient Comments: TAKE 1 TABLET BY MOUTH EVERY DAY Primary Care Provider: Dominguez Vidales Referrals: Dominguez Vidales MD [Primary Care Provider] -
[2022-12-03] MEDS: Morphine 4 MG/ML Syringe IV (11:31)
[2022-12-03] MEDS: Ondansetron 4 MG/2 ML Vial IV (11:31)
[2022-12-03] MEDS: 0.9% Normal Saline 1,000 ML 999 ML IV (11:31)
[2022-12-03 11:53] LABS: Erythrocyte Sedimentation Rate 58 mm/hr (0-30)
[2022-12-03 11:54] LABS: Anion Gap 8 (5-15); BUN 43 mg/dL (7-18); BUN/Creat Ratio 36.4 RATIO (10-20); Calcium,Total 10.6 mg/dL (8.5-10.1); Chloride 99 mmol/L (98-107); Creatinine, Serum 1.18 mg/dL (0.55-1.02); EST Glomerular Filtration Rate 49 mL/min (>60); Est Glom Filt Rate - Afr Amer 60 mL/min (>60); Glucose 250 mg/dL (74-106); Potassium 4.1 mmol/L (3.5-5.1); Sodium Level 134 mmol/L (136-145)
[2022-12-03 11:55] LABS: Absolute Lymphocyte Count 2.61 X10^3/uL (0.83-4.51); Absolute Neutrophil Count 9.2 X10^3/uL (2.0-7.7); Basophil# 0.07 X10^3/uL; Basophil% 0.5 % (0-1); Eosinophil# 0.16 X10^3/uL; Eosinophils% 1.2 % (0-5); Hematocrit 41.2 % (37-47); Hemoglobin 13.8 g/dL (12.0-15.0); Lymphocyte # 2.61 X10^3/ul (0.83-4.51); Lymphocyte % 20.2 % (19-41); Mean Corp Hgb Conc 33.5 g/dL (32-36); Mean Corpuscular Hgb 31.4 pg (27.0-32.0); Mean Corpuscular Volume 93.6 fL (81-99); Mean Platelet Vol. 10.8 fl (6.2-12.0); Monocyte# 0.81 X10^3/uL; Monocyte% 6.3 % (0-10); NRBC Flagged by Analyzer 0 % (0-5); Neutrophil # 9.22 X10^3/uL (2.7-7.7); Neutrophil % 71.2 % (47-70); Platelet Count 552 K/mm3 (150-450); RBC Distribution Width CV 12.9 % (11.6-14.6); RBC Distribution Width SD 44.2 fl (35.1-43.9)
--- NOTE | 2022-12-03 12:28 | HP.PCM_ITS ---
HPI - General General Date of Admission: 12/03/22 Date of Service: 12/03/22 Chief Complaint: non healing left heel wound HPI Narrative NOHEMY PARK, is a 62 F with a PMH as outlined who presents via the ED On 12/03/2022 with a complaint of a nonhealing wound of the left heel> This had been going on for several days. It started as an abrasion to the left heel, but it still wasnt getting better. She denied any fever, chills, cough, chest pain, palpitations, any discharge, or redness around the left heel. Review of systems is otherwise negative. VItals in the ED were BP of 130/75, NC of 145, RR of 18 and temp of 97.8F. She was saturating at 100% on room air. CCB showed hb of 13.8, wbc of 13 and platelets of 552. ESR was 58 and CRP was also elevated at 37.6. She is being admitted to be managed for nonhealing ulcer of the left heel in a known diabetic. [facility] Medical History Diabetes Hypertension Multiple sclerosis Home Medications atenolol 100 mg tablet 100 mg PO DAILY 02/22/15 [History Last Taken 11/26/22] glimepiride 4 mg tablet 4 mg PO BID 07/01/22 [History Last Taken 12/03/22] hydroxyzine pamoate 25 mg capsule 25 mg PO DAILY 07/01/22 [History Last Taken 12/02/22] insulin detemir U-100 100 unit/mL (3 mL) subcutaneous pen (Levemir FlexPen) 40 unit subcut QHS 07/01/22 [History Last Taken 12/02/22] pravastatin 20 mg tablet 20 mg PO QHS 07/01/22 [History Last Taken 12/02/22] tizanidine 2 mg tablet 2 mg PO TID PRN spasms 07/01/22 [History Last Taken 12/02/22] dulaglutide 0.75 mg/0.5 mL subcutaneous pen injector (Trulicity) 0.75 mg subcut QWEEK 11/19/22 [History Last Taken 11/25/22] Lactobacillus acidophilus 10 billion cell capsule (Probiotic) 100 mmu cells PO DAILY 12/03/22 [History Last Taken 12/03/22] arginine 7 gram-glutamine 7 gram-calcium HMB 1.5 gram oral powder pack (Jose Alberto) 1 ea PO BID SUPPLEMENT 12/03/22 [History Last Taken 12/02/22] cholecalciferol (vitamin D3) 125 mcg (5,000 unit) capsule 250 mcg PO DAILY 12/03/22 [History Last Taken 12/03/22] doxycycline hyclate 100 mg tablet 100 mg PO BID 12/03/22 [History Last Taken 12/03/22] hydrochlorothiazide 25 mg tablet 25 mg PO DAILY FLUID 12/03/22 [History Last Taken Unknown] levofloxacin 750 mg tablet 750 mg PO BID 12/03/22 [History Last Taken 12/03/22] lisinopril 40 mg tablet 40 mg PO DAILY B/P 12/03/22 [History Last Taken 11/26/22] melatonin 5 mg capsule 10 mg PO QHS SLEEP 12/03/22 [History Last Taken 12/02/22] multivitamin with minerals-folic acid 120 mcg chewable tablet (Women's Mu ltivitamin Gummies) 1 tab PO DAILY 12/03/22 [History Last Taken Unknown] Allergy/AdvReac Type Severity Reaction Status Date / Time amoxicillin trihydrate Allergy Rash Verified 12/03/22 15:22 [From Augmentin] diflunisal [From Dolobid] Allergy Rash Verified 12/03/22 15:22 moxifloxacin HCl Allergy Rash Verified 12/03/22 15:22 [From Avelox] potassium clavulanate Allergy Rash Verified 12/03/22 15:22 [From Augmentin] sulfamethoxazole Allergy Rash Verified 12/03/22 15:22 [From Bactrim] trimethoprim [From Bactrim] Allergy Rash Verified 12/03/22 15:22 Surgical History (Updated 12/03/22 @ 15:21 by Rena Live) History of appendectomy History of cholecystectomy Social History Smoking Status: Never smoker ROS Constitutional Constitutional: Reports fatigue; Denies anorexia, change in weight, chills, fever(s), malaise or weakness Eyes Eyes: Denies change in vision ENT HEENT: Denies dysphagia or headache(s) Cardiovascular Cardiovascular: Denies chest pain, edema, orthopnea, palpitations, paroxysmal nocturnal dyspnea or syncope Respiratory/Chest Respiratory/Chest: Denies cough, hemoptysis or shortness of breath with exertion Gastrointestinal Gastrointestinal: Denies abdominal pain, nausea or vomiting Genitourinary Genitourinary: Denies dysuria or urinary frequency Neurologic Neurologic: Denies confusion, dizziness, focal weakness, numbness or seizures Psychiatric Psychiatric: Denies anxiety Endocrine Endocrinology: Denies change in body appearance Vital Signs Vital Signs Vital Signs: 12/03/22 10:55 Temperature 97.8 F Temperature Source Temporal Pulse Rate 145 H Respiratory Rate 18 Blood Pressure 130/75 H Blood Pressure Mean 93 Pulse Ox 100 Oxygen Delivery Method Room Air Weight Weight: 238 lb 12.8 oz Body Mass Index (BMI) 40.7 Physical Exam Const alert, oriented x3 and no apparent distress General Appearance: cooperative HEENT normocephalic, head/scalp atraumatic, moist oral mucous membranes and oropharynx normal Eyes PERRL and EOMs intact bilaterally Neck no lymphadenopathy, supple and no JVD Lymph Lymphatic: no lymphadenopathy noted and no lymphedema noted Resp normal respiratory effort, normal air movement and clear to auscultation bilaterally Cardio regular rhythm, S1 normal heart sound, S2 normal heart sound and no murmurs Cardio Narrative: sinus tachycardia GI normal to inspection, nondistended, normoactive bowel sounds, soft to palpation, non-tender and non-distended Extremity Extremity Narrative: has a large ulcer with slough filled floor and erythema around site of the ulcer over her left heel. Skin Skin Narrative: as under extremities Neuro CN's II-XII intact bilaterally, no focal motor deficits, no sensory deficits noted and deep tendon reflexes 2+ bilaterally Psych thought process normal and cooperative Appearance: appropriate Results Lab / Micro Data 12/03/22 11:30 12/03/22 11:30 Labs: Laboratory Results - last 24 hr 12/03/22 11:30: WBC 13.0 H, RBC 4.40, Hgb 13.8, Hct 41.2, MCV 93.6, MCH 31.4, MCHC 33.5, RDW Std Deviation 44.2 H, RDW Coeff of Yessi 12.9, Plt Count 552 H, MPV 10.8, Immature Gran % (Auto) 0.600, Neut % (Auto) 71.2 H, Lymph % (Auto) 20.2, [place] % (Auto) 6.3, Eos % (Auto) 1.2, Baso % (Auto) 0.5, Absolute Neuts (auto) 9.2 H, Absolute Lymphs (auto) 2.61, Nucleated RBC % 0, ESR 58 H, Sodium 134 L, Potassium 4.1, Chloride 99, Carbon Dioxide 27.0, Anion Gap 8, BUN 43 H, Creatinine 1.18 H, Est GFR (MDRD) Af Amer 60, Est GFR (MDRD) Non-Af 49 L, BUN/Creatinine Ratio 36.4 H, Glucose 250 H, Calcium 10.6 H, C-React Prot Ext Range 37.60 H Radiology Impression Ankle X-Ray 12/03/22 11:25 IMPRESSION: Soft tissue swelling and ulceration overlying the posterior aspect of the calcaneus. Plantar spur. Electronically Signed: Juan Miguel Gomez MD at 12:03 EDT , Foot X-Ray 12/03/22 11:25 IMPRESSION: Diffuse soft tissue swelling. Ulcerated lesion overlying the posterior superior aspect of the calcaneus. This is new as compared to prior study. 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 Occurred about 3 to 4 weeks ago. She was given oral antibiotics by podiatry and had been following up at the wound clinic but also has gradually worsened and is not healing * Admits to PCU on account of tachycardia * Get wound cultures and blood cultures. Consult podiatry * Start on IV vancomycin and cefepime * P.o. Tylenol, oxycodone and IV morphine as needed for pain * * # Sinus tachycardia * Heart rate went as high as 145. I think it is because she had not taken her atenolol today * CTA of the chest was negative for any evidence of PE. BNP also not elevated. * Thyroid function checked in f October 2022 showed normal TSH but elevated free T4 of 1.48 and low free T3. * Will resume atenolol and monitor * #Type 2 diabetes mellitus with neuropathy * Diabetes is very poorly controlled with a last A1c in October been 13.3 * She claims compliance with her medication but I am doubtful * On dulaglutide 0.5 mg weekly as well as glimepiride 4 mg twice daily. She is also on insulin detemir 40 units nightly * Patient counseled strongly on compliance. Will get a corporate compliance manager for her as diabetes is very poorly controlled. * Insulin sliding scale. Accu-Cheks ACHS. * #Hyperlipidemia: On statin #Hypertension: On lisinopril and HCTZ as well as atenolol. DVT prophhlaxis: lovenox CODE STATUS: Full code * Patient counseled extensively about different types of CODE STATUS including full code, DNR CCA and DNR CCA. Patient elects to be full code. * Total [id number] time 16 minutes. Charges/Coding Visit Charges Inpatient E&M: 47327 Init Hosp L3 Procedures Hospitalists Procedures: 51846 Advncd Care Plan 30 Min
--- NOTE | 2022-12-03 12:32 | PCM.CONS.GEN ---
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 Increase inflammatory labs. Will order MRI to rule out complete loss of Achilles tendon and possible abscess Will plan for surgical debridement of the wound with application of delta frame tomorrow at 1:30 PM on 12/04/2022 Recommend infectious disease consult, recommend IV vancomycin/Zosyn Patient remain nonweightbearing to left lower extremity Wound care consulted for dressing changes Recent A1c 13.3 down from 14, recommend diabetes education consult Will continue to follow closely (2) Type 2 diabetes mellitus with foot ulcer: (3) Cellulitis of left ankle: (4) Abscess of tendon sheath, left ankle and foot: HPI Consult Data Date of Consult: 12/03/22 HPI Narrative HPI Narrative: NOHEMY PARK, is a 62 F who presents left posterior heel wound being treated outpatient in the wound care center. The wound has degenerated over the past couple weeks. Patient was seen by Dr. Beauchamp in the wound care center today. Noticed increased redness and some scant purulent drainage to the site with increased size and depth to the wound. My current patient denies any fever chills nausea vomiting. Patient denies any pain to the site. Patient has been on p.o. antibiotics. Patient notes some concern for tearing or popping to her left ankle when she excellently bore weight to the site. No other complaints. Patient is sent over by Dr. Beauchamp. [facility] Medical History Diabetes Hypertension Multiple sclerosis Home Medications Cholecalciferol (Vitamin D3) [Vitamin D3] 10,000 units PO DAILY 02/22/15 [History Last Taken 12/08/17] atenolol 100 mg tablet 100 mg PO DAILY 02/22/15 [History Last Taken 12/08/17] lisinopril 5 mg tablet 40 mg PO DAILY 02/22/15 [History Last Taken 12/08/17] glimepiride 4 mg tablet 4 mg PO BID 07/01/22 [History Last Taken Unknown] hydroxyzine pamoate 25 mg capsule 25 mg PO DAILY 07/01/22 [History Last Taken Unknown] insulin detemir U-100 100 unit/mL (3 mL) subcutaneous pen (Levemir FlexPen) 40 unit subcut QHS 07/01/22 [History Last Taken Unknown] methocarbamol 500 mg tablet 500 mg PO 4X/DAY PRN PRN Muscle pain/spasm #40 tabs 07/01/22 [Rx Last Taken Unknown] pravastatin 20 mg tablet 20 mg PO QHS 07/01/22 [History Last Taken Unknown] sertraline 50 mg tablet 50 mg PO QHS 07/01/22 [History Last Taken Unknown] tizanidine 2 mg tablet 2 mg PO TID 07/01/22 [History Last Taken Unknown] prednisone 20 mg tablet 40 mg (2 x 20 mg) PO DAILY 7 days #14 tabs 07/25/22 [Rx Last Taken Unknown] dulaglutide 0.75 mg/0.5 mL subcutaneous pen injector (Trulicity) 0.75 mg subcut QWEEK 11/19/22 [History Last Taken Unknown] Allergy/AdvReac Type Severity Reaction Status Date / Time amoxicillin trihydrate Allergy Rash Verified 12/03/22 10:57 [From Augmentin] diflunisal [From Dolobid] Allergy Rash Verified 12/03/22 10:57 moxifloxacin HCl Allergy Rash Verified 12/03/22 10:57 [From Avelox] potassium clavulanate Allergy Rash Verified 12/03/22 10:57 [From Augmentin] sulfamethoxazole Allergy Rash Verified 12/03/22 10:57 [From Bactrim] trimethoprim [From Bactrim] Allergy Rash Verified 12/03/22 10:57 Social History Smoking Status: Never smoker ROS Constitutional Constitutional: Denies anorexia, excessive sweating or fatigue Eyes Eyes: Denies blurry vision, dry eyes or erythema Cardiovascular Cardiovascular: Denies dyspnea, dyspnea at rest or irregular heart rhythm Respiratory/Chest Respiratory/Chest: Denies cough, difficulty clearing secretions or mouth breathing Gastrointestinal Gastrointestinal: Denies change in stool character, excessive flatus or fecal incontinence Genitourinary Genitourinary: Denies change in urinary stream, movement or penile discharge Musculoskeletal Musculoskeletal: Reports joint pain and joint swelling; Denies joint stiffness Physical Exam Narrative Dorsalis pedis posterior tibial pulses palpable 2 out of 4 to bilateral lower extremity. Some atrophic skin changes suggestive of microvascular disease noted. Capillary fill time brisk to lesser digits 1 through 5 bilaterally. Light touch protective sensation absent to bilateral feet. Full-thickness wound to posterior left ankle with exposed Achilles tendon with significant fraying to the tendon. Significant periwound erythema edema and warmth with scant purulent drainage noted. No probe to bone noted. Potential loss of function of left Achilles tendon. No evidence DVT. Lab / Micro Data 12/03/22 11:30 12/03/22 11:30 Labs: Laboratory Results - last 24 hr 12/03/22 11:30: WBC 13.0 H, RBC 4.40, Hgb 13.8, Hct 41.2, MCV 93.6, MCH 31.4, MCHC 33.5, RDW Std Deviation 44.2 H, RDW Coeff of Yessi 12.9, Plt Count 552 H, MPV 10.8, Immature Gran % (Auto) 0.600, Neut % (Auto) 71.2 H, Lymph % (Auto) 20.2, [place] % (Auto) 6.3, Eos % (Auto) 1.2, Baso % (Auto) 0.5, Absolute Neuts (auto) 9.2 H, Absolute Lymphs (auto) 2.61, Nucleated RBC % 0, ESR 58 H, Sodium 134 L, Potassium 4.1, Chloride 99, Carbon Dioxide 27.0, Anion Gap 8, BUN 43 H, Creatinine 1.18 H, Est GFR (MDRD) Af Amer 60, Est GFR (MDRD) Non-Af 49 L, BUN/Creatinine Ratio 36.4 H, Glucose 250 H, Calcium 10.6 H, C-React Prot Ext Range 37.60 H Radiology Impression Ankle X-Ray 12/03/22 11:25 IMPRESSION: Soft tissue swelling and ulceration overlying the posterior aspect of the calcaneus. Plantar spur. Electronically Signed: Juan Miguel Gomez MD at 12:03 EDT , Foot X-Ray 12/03/22 11:25 IMPRESSION: Diffuse soft tissue swelling. Ulcerated lesion overlying the posterior superior aspect of the calcaneus. This is new as compared to prior study. Electronically Signed: Juan Miguel Gomez MD at 12:08 EDT ,
[2022-12-03 12:34] VITALS: PULSE 124
--- NOTE | 2022-12-03 12:35 | EKG12_ITS ---
Test Reason : HIGH HR Blood Pressure : / mmHG Vent. Rate : 127 BPM Atrial Rate : 127 BPM P-R Int : 120 ms QRS Dur : 110 ms QT Int : 402 ms P-R-T Axes : 010 030 -08 degrees QTc Int : 584 ms Sinus tachycardia Low voltage QRS Right bundle branch block Abnormal ECG Confirmed by STU TORREZ, ROSETTE ([id number]), newspaper or periodical editor ISABEL MACKENZIE ([id number]) on 12/07/2022 8:26:14 AM Referred By: Confirmed By:VA PERAZA MD
--- NOTE | 2022-12-03 12:55 | RAD_ITS ---
STUDY: X-RAY CHEST REASON FOR EXAM: Female, 62 years old. Tachycardia TECHNIQUE: Single AP portable view of the chest. COMPARISON: None. FINDINGS: There is elevation of the right hemidiaphragm. Blunting of the right costo phrenic angle. Mild right basilar atelectasis. Normal size heart. Normal mediastinum and liz. Normal visualized pulmonary arteries. There is atherosclerotic calcification of the aortic arch with tortuosity. Normal visualized thoracic spine. Normal visualized ribs, clavicles, and shoulders. Prior cholecystectomy. RAD/Chest 1 View (Portable) IMPRESSION: Elevation of the right hemidiaphragm with blunting of the right costo phrenic angle and mild degree of right basilar linear atelectasis. Electronically Signed: Juan Miguel Gomez MD at 13:13 EDT ,
[2022-12-03 13:07] LABS: Troponin-I HS 6 pg/mL (3.0-54.0)
[2022-12-03 13:18] LABS: D-Dimer Quantitative (DVT/PE) 1.02 FEU/ug/m (0.27-0.49)
--- NOTE | 2022-12-03 13:22 | CT_ITS ---
STUDY: CTA CHEST REASON FOR EXAM: Female, 62 years old. Tachycardia. Elevated d-dimer. RADIATION DOSAGE (If Supplied By Facility): CTDIvol = ( 15.55 ) mGy, DLP = ( 499.12 ) mGycm TECHNIQUE: The examination was performed with the intravenous administration of IV 100mL Isovue-370. Post-processing of the angiographic images was performed, with multiplanar reformation and 3D reconstruction. Individualized dose optimization techniques were used for this CT. COMPARISON: Comparison is made with prior chest radiograph done earlier today. FINDINGS: Normal enhancement of the main pulmonary artery and right and left pulmonary arteries. Normal enhancement of the bilateral peripheral pulmonary arteries. There is no demonstrated pulmonary embolism. Normal thoracic aorta and visualized great vessels. There is no demonstrated aortic dissection. Normal heart and pericardium. No coronary artery calcification is seen. Normal mediastinum. Normal hilar regions. Normal visualized trachea and bronchi. There is elevation of the right hemidiaphragm. Mild increased markings in the right middle lobe anteriorly as well as at the right lung base suggestive of atelectasis and/or scarring. Normal pleura. Normal chest wall structures. There are degenerative changes of thoracic spine. The patient is status post cholecystectomy. CT/CTA Chest W/WO Contrast IMPRESSION: No evidence of pulmonary embolism. Elevation of the right hemidiaphragm with evidence of linear atelectasis and/or scarring in the anterior aspect of the right middle lobe and right lower lobe. Electronically Signed: Juan Miguel Gomez MD at 14:04 EDT ,
[2022-12-03 14:00] VITALS: RESP 18
[2022-12-03 14:15] VITALS: BP 130/75; PULSE 119; RESP 13; TEMP 36.3; O2SAT 95
[2022-12-03 14:52] VITALS: BP 116/58; PULSE 127; RESP 15; TEMP 36.8; O2SAT 97
[2022-12-03 15:11] VITALS: BMI 39.6
--- NOTE | 2022-12-03 15:35 | WOUNDNOTE ---
wound photo: left posterior ankle/Achilles
[2022-12-03 16:56] LABS: Bedside Glucose 232 mg/dL (74-106)
[2022-12-03] MEDS: Insulin Lispro 100 UNIT/ML INSULN.PEN SC ×2 (17:13→22:19)
[2022-12-03] MEDS: Glimepiride 4 MG Tablet PO (17:14)
--- NOTE | 2022-12-03 17:29 | PCM.RX.CS ---
Consult Antibiotic Management Pharmacy has been consulted to manage selected antiobiotic: Vancomycin Type of Intervention Type of Consult: New start Suspected Infection Suspected Infection: Skin/Soft tissue (+ABSCESS) Prior Doses of Antibiotics Prior Doses of Antibiotics Received/Current Regimen: 2000 MG IV VANCOMYCIN LOADING DOSE GIVEN 12/03/22 @ 1717 MEROPENEM ALSO GIVEN Labs Labs: Sodium 134 mmol/L (136-145) L 12/03/22 11:30 Potassium 4.1 mmol/L (3.5-5.1) 12/03/22 11:30 Chloride 99 mmol/L (98-107) 12/03/22 11:30 Carbon Dioxide 27.0 mmol/L (21.0-32.0) 12/03/22 11:30 Anion Gap 8 (5-15) 12/03/22 11:30 BUN 43 mg/dL (7-18) H 12/03/22 11:30 Creatinine 1.18 mg/dL (0.55-1.02) H 12/03/22 11:30 Est GFR (MDRD) Af Amer 60 mL/min (>60) 12/03/22 11:30 Est GFR (MDRD) Non-Af 49 mL/min (>60) L 12/03/22 11:30 BUN/Creatinine Ratio 36.4 RATIO (10-20) H 12/03/22 11:30 Glucose 250 mg/dL (74-106) H 12/03/22 11:30 Dosing Weight Weight used for dosin.7 kg Estimated Creatinine Clearance Estimated Creatinine Clearance: 59 Goal Trough Goal Trough: 15-20 mcg/mL Pharmacy Plan for Drug Dosing Pharmacy Plan for Drug Dosin mg IV loading dose x 1 12/03/22 @ 1717 1000 mg Q12H IV starting 12/04/22 @ 0500 with trough prior to 4th dose Pharmacy Service will continue to monitor and adjust dosing as required. Follow-Up Labs Follow-Up Labs: Trough: Vancomycin Date/Time Labs Ordered Labs to be done on [date and time ordered]: 12/05/22 @ 0430
[2022-12-03] MEDS: oxyCODONE 5 MG Tablet PO (18:05)
[2022-12-03] MEDS: Acetaminophen 325 MG Tablet 650 MG PO (18:05)
[2022-12-03] MEDS: Atenolol 100 MG Tablet PO (18:15)
[2022-12-03 20:50] VITALS: BP 112/62; PULSE 81; RESP 16; TEMP 36.8; O2SAT 97
[2022-12-03] MEDS: Juven (unflavored) Packet 1 PACKET PO (22:03)
[2022-12-03] MEDS: Pravastatin 20 MG Tablet PO (22:19)
[2022-12-03] MEDS: MELATONIN 10 MG TABLET PO (22:19)
[2022-12-03] MEDS: Polyethylene Glycol 3350 17 GM PACKET PO (22:20)
[2022-12-03 23:02] LABS: Bedside Glucose 333 mg/dL (74-106)
[2022-12-03] MEDS: Insulin Glargine-YFGN 100 UNIT/ML Pen 40 UNIT SC (23:19)
[2022-12-04] VITALS (14 sets, daily range): BP systolic 96–118; BP diastolic 49–74; PULSE 83–100; RESP 16–18; TEMP 36.6–37.1; O2SAT 92–98; BMI 39.6
[2022-12-04] MEDS: Acetaminophen 325 MG Tablet 650 MG PO (02:54)
[2022-12-04] MEDS: Vancomycin IV 1,000 MG/200 ML BAG 200 MG IV (05:20)
[2022-12-04 06:16] LABS: Absolute Neutrophil Count 7.2 X10^3/uL (2.0-7.7); Basophil# 0.05 X10^3/uL; Basophil% 0.5 % (0-1); Eosinophil# 0.37 X10^3/uL; Eosinophils% 3.5 % (0-5); Hematocrit 34.5 % (37-47); Hemoglobin 11.6 g/dL (12.0-15.0); Lymphocyte % 19.9 % (19-41); Mean Corp Hgb Conc 33.6 g/dL (32-36); Mean Platelet Vol. 10.8 fl (6.2-12.0); Monocyte# 0.81 X10^3/uL; Monocyte% 7.7 % (0-10); NRBC Flagged by Analyzer 0 % (0-5); Neutrophil # 7.18 X10^3/uL (2.7-7.7); Neutrophil % 67.9 % (47-70); Platelet Count 435 K/mm3 (150-450); RBC Distribution Width SD 45.3 fl (35.1-43.9); Red Blood Count 3.63 M/mm3 (4.2-5.4); White Blood Count 10.6 K/mm3 (4.4-11.0)
[2022-12-04 06:39] LABS: Anion Gap 5 (5-15); BUN 41 mg/dL (7-18); BUN/Creat Ratio 41.8 RATIO (10-20); Calcium,Total 9.4 mg/dL (8.5-10.1); Chloride 105 mmol/L (98-107); Creatinine, Serum 0.98 mg/dL (0.55-1.02); EST Glomerular Filtration Rate 61 mL/min (>60); Est Glom Filt Rate - Afr Amer 74 mL/min (>60); Estimated Creatinine Clearance 52.06 ml/min; Glucose 193 mg/dL (74-106); Potassium 4.1 mmol/L (3.5-5.1); Sodium Level 136 mmol/L (136-145)
[2022-12-04] MEDS: Menthol/Lanolin/Calamine/Znox 113 GM Tube 1 APPLIC TOPICAL (06:47)
--- NOTE | 2022-12-04 06:51 | PCM.RX.CS ---
Consult Antibiotic Management Pharmacy has been consulted to manage selected antiobiotic: Vancomycin Type of Intervention Type of Consult: Follow-up Suspected Infection Suspected Infection: Skin/Soft tissue (ABSCESS) Prior Doses of Antibiotics Prior Doses of Antibiotics Received/Current Regimen: Vancomycin 2000 mg 12/03/22 @ 1717 Vancomycin 1000 mg 12/04/22 @ 0520 Labs Labs: Sodium 136 mmol/L (136-145) 12/04/22 05:46 Potassium 4.1 mmol/L (3.5-5.1) 12/04/22 05:46 Chloride 105 mmol/L (98-107) 12/04/22 05:46 Carbon Dioxide 26.0 mmol/L (21.0-32.0) 12/04/22 05:46 Anion Gap 5 (5-15) 12/04/22 05:46 BUN 41 mg/dL (7-18) H 12/04/22 05:46 Creatinine 0.98 mg/dL (0.55-1.02) 12/04/22 05:46 Est GFR (MDRD) Af Amer 74 mL/min (>60) 12/04/22 05:46 Est GFR (MDRD) Non-Af 61 mL/min (>60) 12/04/22 05:46 BUN/Creatinine Ratio 41.8 RATIO (10-20) H 12/04/22 05:46 Glucose 193 mg/dL (74-106) H 12/04/22 05:46 Dosing Weight Weight used for dosin.7 kg Goal Trough Goal Trough: 15-20 mcg/mL Pharmacy Plan for Drug Dosing Pharmacy Plan for Drug Dosing: The patients scr improved from 1.18 to 0.98, crcl improved to ~71 based on adjusted body weight, d/t improvement in renal function and concerned severity of infection will increase vancomycin dose to 1250 mg IV Q12H and draw trough tomorrow afternoon (12/05) prior to 3rd dose of new regimen Pharmacy Service will continue to monitor and adjust dosing as required. Follow-Up Labs Follow-Up Labs: Trough: Vancomycin Date/Time Labs Ordered Labs to be done on [date and time ordered]: 12/05/22 @ 1445
[2022-12-04] MEDS: Insulin Lispro 100 UNIT/ML INSULN.PEN SC ×2 (07:15→17:19)
[2022-12-04 07:35] LABS: Bedside Glucose 185 mg/dL (74-106)
[2022-12-04] MEDS: Ondansetron 4 MG/2 ML Vial IV (09:07)
[2022-12-04] MEDS: 0.9% Saline Lock 10 ML Syringe IV ×2 (09:10→17:18)
--- NOTE | 2022-12-04 09:22 | MRI_ITS ---
STUDY: MRI LEFT ANKLE/HINDFOOT WITHOUT CONTRAST REASON FOR EXAM: Female, 62 years old. Abscess, left ankle, wound [id number] TECHNIQUE: Standardized fat and water weighted pulse sequences were obtained in all 3 orthogonal planes. COMPARISON: X-ray December 03, 2022 FINDINGS: There is posterior soft tissue swelling with skin thickening and subcutaneous edema. There is focal defect consistent with wound. There is tendinosis of the Achilles with rupture and high-grade distal tendon tear. There is marrow edema of the posterior calcaneus with focal cortical defect consistent with erosion at the posterior superior calcaneus. Normal posterior tibialis tendon. Normal flexor digitorum longus tendon. Normal flexor hallucis longus tendon. There is mild fluid in the sheath of the peroneus longus and brevis tendons. Normal tibialis anterior tendon. Normal extensor hallucis longus tendon. Normal extensor digitorum longus tendons. Normal plantar fascia. There is a plantar calcaneal spur. Normal intrinsic muscles of the rearfoot. Normal distal tibiofibular syndesmotic ligamentous complex. Normal lateral ligamentous complex. Normal subtalar ligaments and sinus tarsi. Normal deltoid ligamentous complexes. Normal plantar calcaneonavicular (spring) ligament. There is small effusion of the tibiotalar articulation. There is subchondral edema of the lateral talar dome Normal subtalar articulations. Normal talonavicular articulation. Normal calcaneocuboid articulation. Normal navicular-cuneiform articulations. MRI/Lower Ext Joint Only (Routine) IMPRESSION: Posterior soft tissue wound with high-grade tear of the distal Achilles tendon and osteomyelitis of the posterior calcaneus. Electronically Signed: Morteza Jones MD at 12:10 EDT ,
--- NOTE | 2022-12-04 11:50 | CASEMGMT ---
RN CM Face to Face with patient for initial transition planning/care coordination assessment. RN CM introduced self and role at [facility]. Patient lying in bed, alert and oriented, family. Patient willing to participate in assessment and is able to answer all questions appropriately. Care providers, pharmacy, and demographics verified. Patient wishes to discharge home but is interested in going to SNF if needed, will monitor progress with therapy. Patient states she has no further needs or concerns at this time. CM to follow for discharge planning needs that may arise. PCP: Sobeida Specialists: [facility] Wound Center, masha [facility]ff Preferred Pharmacy: [facility] Insurance: [employer] Prescription Benefit: yes Living Will/HPOA: none LNOK: Living Arrangements: Patient lives with in a single story condo with no steps to enter. Patient states she is independent at home. Transportation: self, DME/HHC:Patient has shower chair, raised toilet, cane, walker, pulse ox, glucometer at home. No previous HHC or SNF. Disposition Plan: TBD, anticipate HHC vs SNF pending course of treatment and progress with therapy. Anna RUFFN, RN, CM
[2022-12-04 12:30] LABS: Bedside Glucose 169 mg/dL (74-106)
--- NOTE | 2022-12-04 12:54 | PN_ITS ---
Subjective Subjective Patient seen and examined. She had no complaints today. She denies any fever, chills or any other symptoms. Review of systems is otherwise negative. She is due for surgery today by podiatry. Objective Data Objective Data Vital Signs: Vital Signs Temp Pulse Resp BP Pulse Ox O2 Del Method 97.8 F 88 16 118/74 98 Room Air 12/04/22 09:00 12/04/22 09:00 12/04/22 09:00 12/04/22 09:00 12/04/22 09:00 12/04/22 09:00 Oxygen Delivery Method Room Air Weight: 230 lb 13.184 oz Body Mass Index (BMI) 39.6 Intake & Output: Intake and Output for Last 24 Hours 12/02/22 12/03/22 12/04/22 23:59 23:59 23:59 Intake Total 2110 / 2530 670 / 670 Balance 2110 / 2530 670 / 670 Lab / Micro Data 12/04/22 05:46 12/04/22 05:46 Labs: Laboratory Results - last 24 hr 12/03/22 11:30: D-Dimer Quant (PE/DVT) 1.02 H*, Troponin I High Sens 6 12/03/22 16:38: POC Glucose 232 H 12/03/22 22:05: POC Glucose 333 H 12/04/22 05:46: WBC 10.6, RBC 3.63 L, Hgb 11.6 L, Hct 34.5 L, MCV 95.0, MCH 32.0, MCHC 33.6, RDW Std Deviation 45.3 H, RDW Coeff of Yessi 13.0, Plt Count 435, MPV 10.8, Immature Gran % (Auto) 0.500, Neut % (Auto) 67.9, Lymph % (Auto) 19.9, [place] % (Auto) 7.7, Eos % (Auto) 3.5, Baso % (Auto) 0.5, Absolute Neuts (auto) 7.2, Absolute Lymphs (auto) 2.10, Nucleated RBC % 0, Sodium 136, Potassium 4.1, Chloride 105, Carbon Dioxide 26.0, Anion Gap 5, BUN 41 H, Creatinine 0.98, Estim Creat Clear Calc 52.06, Est GFR (MDRD) Af Amer 74, Est GFR (MDRD) Non-Af 61, BUN/Creatinine Ratio 41.8 H, Glucose 193 H, Calcium 9.4 12/04/22 07:12: POC Glucose 185 H 12/04/22 11:57: POC Glucose 169 H Radiography Diagnostic Testing: Radiology Impression Chest X-Ray 12/03/22 12:55 IMPRESSION: Elevation of the right hemidiaphragm with blunting of the right costo phrenic angle and mild degree of right basilar linear atelectasis. Electronically Signed: Juan Miguel Gomez MD at 13:13 EDT , Chest CTA 12/03/22 13:22 IMPRESSION: No evidence of pulmonary embolism. Elevation of the right hemidiaphragm with evidence of linear atelectasis and/or scarring in the anterior aspect of the right middle lobe and right lower lobe. Electronically Signed: Juan Miguel Gomez MD at 14:04 EDT , Lower Extremity MRI 12/04/22 09:22 IMPRESSION: Posterior soft tissue wound with high-grade tear of the distal Achilles tendon and osteomyelitis of the posterior calcaneus. Electronically Signed: Morteza Jones MD at 12:10 EDT , Physical Exam Const alert, oriented x3 and no apparent distress General Appearance: cooperative HEENT normocephalic, head/scalp atraumatic, moist oral mucous membranes and oropharynx normal Eyes PERRL and EOMs intact bilaterally Neck no lymphadenopathy, supple and no JVD Lymph Lymphatic: no lymphadenopathy noted and no lymphedema noted Resp normal respiratory effort, normal air movement and clear to auscultation bilaterally Cardio regular rate, regular rhythm, S1 normal heart sound, S2 normal heart sound and no murmurs GI normal to inspection, nondistended, normoactive bowel sounds, soft to palpation, non-tender and non-distended Extremity Extremity Narrative: left foot wrapped in bandage. 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 Occurred about 3 to 4 weeks ago. She was given oral antibiotics by podiatry and had been following up at the wound clinic but also has gradually worsened and is not healing * on IV vancomycin and meropenem * podiatry on board. * P.o. Tylenol, oxycodone and IV morphine as needed for pain * MRI of the posterior soft tissue wound with high grade tear of the distal Achilles tendon and osteomyelitis of the posterior calcaneus. * # Sinus tachycardia * resolved * CTA of the chest was negative for any evidence of PE. BNP also not elevated. * Thyroid function checked in October 2022 showed normal TSH but elevated free T4 of 1.48 and low free T3. * resolved after patient placed back on her atenolol * #Type 2 diabetes mellitus with neuropathy * Diabetes is very poorly controlled with a last A1c in October been 13.3 * She claims compliance with her medication * On dulaglutide 0.5 mg weekly as well as glimepiride 4 mg twice daily. She is also on insulin detemir 40 units nightly * Patient counseled strongly on compliance. * Insulin sliding scale. Accu-Cheks ACHS. * #Hyperlipidemia: On statin #Hypertension: On lisinopril and HCTZ as well as atenolol. DVT prophylaxis: lovenox CODE STATUS: Full code Charges/Coding Visit Charges Inpatient E&M: 41872 Subs Hosp L2
[2022-12-04] MEDS: Lactated Ringers 1,000 ML 15 ML IV ×2 (13:03→14:31)
--- NOTE | 2022-12-04 13:45 | RAD_ITS ---
INDICATION: DEBRIDEMENT WOUND EXAMINATION/TECHNIQUE: X-RAY - LEFT XR Foot Min 3 Views 7 VIEWS COMPARISON: Left foot series 12/03/2022 FINDINGS: 7 intraoperative fluoroscopic spot films obtained showing placement of hardware with the appearance of external fixators at the midfoot and distal tibia. Please refer to operative notes for procedure details. RAD/Foot min 3 Views IMPRESSION: Intraoperative spot films of the right foot and ankle. Electronically Signed: César Jensen MD at 19:30 EDT ,
[2022-12-04] MEDS: Bupivacaine Mpf 0.5% 30 ML VIAL (14:52)
--- NOTE | 2022-12-04 15:17 | OP.PCM_ITS ---
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: (4) Spontaneous rupture of flexor tendons, left ankle and foot: Report of Operation Date of Procedure: 12/04/22 Pre-Operative Diagnosis: 1) acute tendon rupture full-thickness left Achilles 2) full-thickness wound down to level of tendon left Achilles 3) abscess left Achilles tendon 4) cellulitis left ankle 5) diabetic neuropathy Post-Operative Diagnosis: Same Surgery/Procedure Performed:: 1) incision and drainage abscess left Achilles tendon and calcaneal bone 2) debridement left Achilles tendon excisional 3) complex wound closure left Achilles tendon I&D site 4) application of delta frame external fixator to stabilize left Achilles tendon rupture and offload posterior heel wound Description of Surgical Findings:: Preoperatively patient was admitted to hospital with elevated leukocytosis inflammatory labs and a recent hemoglobin A1c of 13.3 with a 8 wound exposed down to level of tendon with positive purulence. MRI was taken and demonstrated an abscess to the peritendinous area with complete rupture of the distal Achilles tendon as well as possible osteomyelitis left calcaneus. Due to patient's exposed wound amount of tendon involvement complete rupture of the tendon recent hemoglobin A1c location of wound decision was made to clean out any abscess as well as necrotic nonviable infected tissue and apply a delta frame external fixator for added stability to offload that posterior heel wound. Type of Anesthesia: General Special Medications: 30 cc half percent Marcaine plain Specimen's removed: Left Achilles tendon and soft tissue for culture Left calcaneal bone Pre and post lavage swab cultures Drains: No drains Estimated Blood Loss (mL): Less than Description of Procedure: Patient brought back the operating placed comfortably in supine position operating room table. Patient induced under general anesthesia. Well-padded left thigh tourniquet applied. Patient position position with no hip bump placed to allow for adequate exposure of the Achilles tendon from the supine position via frog-lateral. Left lower extremity scrubbed prepped draped using typical aseptic fashion. Once cleared by anesthesia left lower extremity was elevated exsanguinated tourniquet was inflated to 300 mmHg. Due to presence of peritendinous abscess the full-thickness wound was extended proximally with a 15 blade making incision down to the level of tendon and a 3 cc abscess was drained from the tendon sheath of the Achilles tendon. Pre-lavage swab culture taken of the left ankle wound site. there is noted to be a full-thickness wound to the posterior Achilles. Pre wound debridement the wound measured 6 cm x 4 cm with exposed tendon approximately 1.5 cm deep. Postdebridement the wound measured 6.5 x 4.3 x 3.0 cm. Wound base postdebridement was healthy granular tissue no residual ne crotic nonviable tendon. This was all excised using combination of pickups 15 blade bone rongeurs and sterile dissecting scissors. At this time based on MRI read there is noted to be exposed calcaneal bone without any obvious signs of infection but using bone rongeurs some bone was taken and sent for culture to microbiology. The wound incisional site appeared to be healthy with stable bleeding base and no evidence of residual purulence and necrotic nonviable tissue. It should be noted that a large portion of the distal Achilles tendon had to be removed due to nonviability and diffuse infection. This may complicate postoperative care as the patient may require Achilles reconstruction depending on patient's recovery postop. We may consider long-term bracing due to patient's level of compliance and glucose status. Wound site was flushed with copious amounts normal sterile saline using low-pressure pulse lavage. Post lavage swab cultures were then taken. Next using red Vesseloops and a stapler vessel loop closure was performed from proximal to distal extending across the incisional site across the distal wound as well. This applied some gentle approximation of the incisional site with some gentle approximation across the distal wound to not completely closed wound to allow for some drainage and allow access for local wound care preventing any long-term splinting which may delay the healing process. Next using manufactures guidelines a [place] pin to bar frame was applied using a delta frame construct with 2 tibial half pins proximally 1 calcaneal transfixion pin in 1 pin through the medial cuneiform to allow for sagittal plane correction these were all connected through their appropriate pin to bar connections and tightened with the foot and ankle held in a neutral position with slight gravity plantarflexion with regards to stand up sagittal plane to allow for some approximation of the Achilles with tendon rupture site. Should be noted that there were pins in multiple planes with a unilateral fixator applied. Next tourniquet was let down and incision/wound was dressed with Betadine soaked 4 x 4's 4 x 4's ABD pads Kerlix and Ravi bandage. Total tourniquet time was around an hour. Patient was transferred to PACU vital signs stable and vascular status intact all digits for further monitoring prior to transfer back to the floor. Patient will continue receiving IV antibiotics. Patient will be evaluated by infectious disease for long-term antibiotic management. I will recommend SNF placement as patient will require to perform prolonged nonweightbearing with ideally IV antibiotic therapy due to diffusely infected Achilles tendon potentially infected calcaneal bone. In the future upon healing of the wound will consider reconstruction of the Achilles tendon versus long-term bracing. No complications Left Achilles tendon soft tissue sent to microbiology left calcaneal bone sent to microbiology pre and post lavage swab cultures taken Remaining wound appears healthy and viable and entire complex appears stable with delta frame application. Grafts/Implants Used: Bessie Hernández external fixator Complications None Admit VTE Documentation VTE Present on Admission: Yes VTE Pharm Prophylaxis ordered?: Yes
[2022-12-04 15:37] LABS: Bedside Glucose 186 mg/dL (74-106)
[2022-12-04] MEDS: hydroCHLOROthiazide 25 MG Tablet PO (17:18)
[2022-12-04] MEDS: Polyethylene Glycol 3350 17 GM PACKET 8.5 GM PO (17:18)
[2022-12-04] MEDS: Juven (unflavored) Packet 1 PACKET PO ×2 (17:18→22:00)
[2022-12-04] MEDS: Lisinopril 40 MG Tablet PO (17:18)
[2022-12-04] MEDS: Cholecalciferol (Vit D3) 125 MCG CAPSULE (5,000 UNITS) 250 MCG PO (17:19)
[2022-12-04] MEDS: Glimepiride 4 MG Tablet PO (17:19)
[2022-12-04] MEDS: Multivitamins,Ther W-Minerals Tablet 1 TABLET PO (17:19)
[2022-12-04 17:42] LABS: Bedside Glucose 248 mg/dL (74-106)
--- NOTE | 2022-12-04 21:31 | CPS ---
Pt sleeping with O2 at 2L nasal o2. will instruct I.S. later
[2022-12-04] MEDS: Pravastatin 20 MG Tablet PO (21:59)
[2022-12-04] MEDS: Senna/Docusate Sodium 1 Tablet PO (21:59)
[2022-12-04] MEDS: MELATONIN 10 MG TABLET PO (21:59)
[2022-12-04] MEDS: Insulin Glargine-YFGN 100 UNIT/ML Pen 40 UNIT SC (22:07)
[2022-12-04 22:28] LABS: Bedside Glucose 461 mg/dL (74-106)
[2022-12-04] MEDS: Insulin Lispro 100 UNIT/ML INSULN.PEN 15 UNIT SC (23:01)
[2022-12-04] MEDS: Nystatin Powder 15gm Bottle 1 APPLIC TOPICAL (23:02)
[2022-12-04] MEDS: Morphine 2 MG/ML Syringe IV (23:04)
[2022-12-05] VITALS (7 sets, daily range): BP systolic 84–103; BP diastolic 54–67; PULSE 77–86; RESP 14–16; TEMP 36.2–36.7; O2SAT 94–100
[2022-12-05] MEDS: Morphine 2 MG/ML Syringe IV ×2 (06:23→12:54)
[2022-12-05] MEDS: Insulin Lispro 100 UNIT/ML INSULN.PEN SC ×4 (06:26→21:19)
[2022-12-05] MEDS: Nystatin Powder 15gm Bottle 1 APPLIC TOPICAL ×3 (06:26→21:16)
[2022-12-05 07:01] LABS: Bedside Glucose 399 mg/dL (74-106)
[2022-12-05 08:14] LABS: Absolute Neutrophil Count 7.3 X10^3/uL (2.0-7.7); Basophil# 0.03 X10^3/uL; Basophil% 0.3 % (0-1); Eosinophil# 0.02 X10^3/uL; Eosinophils% 0.2 % (0-5); Hematocrit 34.7 % (37-47); Hemoglobin 11.6 g/dL (12.0-15.0); Lymphocyte % 18.4 % (19-41); Mean Corp Hgb Conc 33.4 g/dL (32-36); Mean Corpuscular Volume 95.9 fL (81-99); Mean Platelet Vol. 10.9 fl (6.2-12.0); Monocyte# 0.57 X10^3/uL; Monocyte% 5.8 % (0-10); NRBC Flagged by Analyzer 0 % (0-5); Neutrophil # 7.31 X10^3/uL (2.7-7.7); Neutrophil % 74.9 % (47-70); Platelet Count 433 K/mm3 (150-450); RBC Distribution Width CV 13.1 % (11.6-14.6); RBC Distribution Width SD 46.7 fl (35.1-43.9); Red Blood Count 3.62 M/mm3 (4.2-5.4); White Blood Count 9.8 K/mm3 (4.4-11.0)
[2022-12-05] MEDS: Juven (unflavored) Packet 1 PACKET PO ×2 (08:19→21:11)
[2022-12-05] MEDS: Polyethylene Glycol 3350 17 GM PACKET 8.5 GM PO (08:19)
[2022-12-05] MEDS: Enoxaparin 40 MG/0.4 ML Syringe SC (08:20)
[2022-12-05] MEDS: Cholecalciferol (Vit D3) 125 MCG CAPSULE (5,000 UNITS) 250 MCG PO (08:22)
[2022-12-05] MEDS: Senna/Docusate Sodium 1 Tablet PO ×2 (08:22→21:13)
[2022-12-05] MEDS: Lisinopril 40 MG Tablet PO (08:22)
[2022-12-05] MEDS: Multivitamins,Ther W-Minerals Tablet 1 TABLET PO (08:22)
[2022-12-05] MEDS: hydroCHLOROthiazide 25 MG Tablet PO (08:22)
[2022-12-05] MEDS: Glimepiride 4 MG Tablet PO ×2 (08:22→16:55)
[2022-12-05] MEDS: Menthol/Lanolin/Calamine/Znox 113 GM Tube 1 APPLIC TOPICAL ×2 (08:23→21:16)
[2022-12-05 08:33] LABS: Anion Gap 5 (5-15); BUN 50 mg/dL (7-18); Calcium,Total 8.7 mg/dL (8.5-10.1); Chloride 101 mmol/L (98-107); Creatinine, Serum 1.25 mg/dL (0.55-1.02); EST Glomerular Filtration Rate 46 mL/min (>60); Est Glom Filt Rate - Afr Amer 56 mL/min (>60); Estimated Creatinine Clearance 40.81 ml/min; Glucose 383 mg/dL (74-106); Potassium 3.8 mmol/L (3.5-5.1); Sodium Level 132 mmol/L (136-145)
[2022-12-05] MEDS: Acetaminophen 325 MG Tablet 650 MG PO ×2 (11:19→21:29)
[2022-12-05] MEDS: oxyCODONE 5 MG Tablet PO ×2 (11:19→21:28)
--- NOTE | 2022-12-05 11:28 | PN_ITS ---
Subjective Subjective Patient denies constitutional's. Some pain overnight. Controlled at current. Patient voiding urine passing gas. Objective Data Objective Data Vital Signs: Vital Signs Temp Pulse Resp BP Pulse Ox O2 Del Method O2 Flow Rate 97.1 F L 80 16 103/67 98 Room Air 2 12/05/22 08:14 12/05/22 08:14 12/05/22 08:14 12/05/22 08:14 12/05/22 08:14 12/05/22 09:00 12/04/22 20:15 Oxygen Flow Rate (L/min) 2 Oxygen Delivery Method Room Air Weight: 104.7 kg Body Mass Index (BMI) 39.6 Intake & Output: Intake and Output for Last 24 Hours 12/03/22 12/04/22 12/05/22 23:59 23:59 23:59 Intake Total 2110 / 2530 2277.25 / 2597.25 795 / 795 Output Total 600 / 600 Balance 2110 / 2530 2277.25 / 1997.25 195 / 195 Lab / Micro Data 12/05/22 06:59 12/05/22 06:59 Labs: Laboratory Results - last 24 hr 12/04/22 11:57: POC Glucose 169 H 12/04/22 15:18: POC Glucose 186 H 12/04/22 17:17: POC Glucose 248 H 12/04/22 22:06: POC Glucose 461 H* 12/05/22 06:25: POC Glucose 399 H 12/05/22 06:59: WBC 9.8, RBC 3.62 L, Hgb 11.6 L, Hct 34.7 L, MCV 95.9, MCH 32.0, MCHC 33.4, RDW Std Deviation 46.7 H, RDW Coeff of Yessi 13.1, Plt Count 433, MPV 10.9, Immature Gran % (Auto) 0.400, Neut % (Auto) 74.9 H, Lymph % (Auto) 18.4 L, Kerr % (Auto) 5.8, Eos % (Auto) 0.2, Baso % (Auto) 0.3, Absolute Neuts (auto) 7.3, Absolute Lymphs (auto) 1.80, Nucleated RBC % 0, Sodium 132 L, Potassium 3.8, Chloride 101, Carbon Dioxide 26.0, Anion Gap 5, BUN 50 H, Creatinine 1.25 H , Estim Creat Clear Calc 40.81, Est GFR (MDRD) Af Amer 56 L, Est GFR (MDRD) Non- Af 46 L, BUN/Creatinine Ratio 40.0 H, Glucose 383 H, Calcium 8.7 Radiography Diagnostic Testing: Radiology Impression Lower Extremity MRI 12/04/22 09:22 IMPRESSION: Posterior soft tissue wound with high-grade tear of the distal Achilles tendon and osteomyelitis of the posterior calcaneus. Electronically Signed: Morteza Jones MD at 12:10 EDT , Foot X-Ray 12/04/22 13:45 IMPRESSION: Intraoperative spot films of the right foot and ankle. Electronically Signed: César Jensen MD at 19:30 EDT , Physical Exam Narrative Delta frame pin sites intact no signs of infection. Posterior ankle wound demonstrates some mild residual erythema with intact vessel loop closure. Wound demonstrates exposed calcaneal bone as well as some residual Achilles tendon. With pericalcaneal and Achilles granulation tissue noted. Neurovascular status unchanged. No evidence DVT. Assessment & Plan Assessment/Plan (1) Spontaneous rupture of flexor tendons, left ankle and foot: PLAN: Exam performed. Vital signs stable, leukocytosis resolved Intraoperative cultures pending, will await ID recommendations for antibiotics. Recommend long-term IV antibiotics. Patient will require prolonged nonweightbearing, recommend SNF placement. Dressing changed today redressed with Betadine paint 4 x 4's Kerlix Ravi bandage. Vessel closure demonstrated some residual erythema May consider removing it tomorrow if it does not improve. We will consider planning for wound VAC upon discharge to [facility]. We will continue to follow closely. 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
[2022-12-05 11:54] LABS: Bedside Glucose 400 mg/dL (74-106)
--- NOTE | 2022-12-05 12:11 | PN_ITS ---
Subjective Subjective Patient seen and examined. She had no complaints. Pain is well controlled today. She had surgery yesterday. Review of systems otherwise negative. Today's postop day 1. Objective Data Objective Data Vital Signs: Vital Signs Temp Pulse Resp BP Pulse Ox O2 Del Method O2 Flow Rate 97.1 F L 80 16 103/67 98 Room Air 2 12/05/22 08:14 12/05/22 08:14 12/05/22 08:14 12/05/22 08:14 12/05/22 08:14 12/05/22 09:00 12/04/22 20:15 Oxygen Flow Rate (L/min) 2 Oxygen Delivery Method Room Air Weight: 230 lb 13.184 oz Body Mass Index (BMI) 39.6 Intake & Output: Intake and Output for Last 24 Hours 12/03/22 12/04/22 12/05/22 23:59 23:59 23:59 Intake Total 2110 / 2530 2277.25 / 2597.25 795 / 795 Output Total 600 / 600 Balance 2110 / 2530 2277.25 / 1997.25 195 / 195 Lab / Micro Data 12/05/22 06:59 12/05/22 06:59 Labs: Laboratory Results - last 24 hr 12/04/22 11:57: POC Glucose 169 H 12/04/22 15:18: POC Glucose 186 H 12/04/22 17:17: POC Glucose 248 H 12/04/22 22:06: POC Glucose 461 H* 12/05/22 06:25: POC Glucose 399 H 12/05/22 06:59: WBC 9.8, RBC 3.62 L, Hgb 11.6 L, Hct 34.7 L, MCV 95.9, MCH 32.0, MCHC 33.4, RDW Std Deviation 46.7 H, RDW Coeff of Yessi 13.1, Plt Count 433, MPV 10.9, Immature Gran % (Auto) 0.400, Neut % (Auto) 74.9 H, Lymph % (Auto) 18.4 L, [place] % (Auto) 5.8, Eos % (Auto) 0.2, Baso % (Auto) 0.3, Absolute Neuts (auto) 7.3, Absolute Lymphs (auto) 1.80, Nucleated RBC % 0, Sodium 132 L, Potassium 3.8, Chloride 101, Carbon Dioxide 26.0, Anion Gap 5, BUN 50 H, Creatinine 1.25 H , Estim Creat Clear Calc 40.81, Est GFR (MDRD) Af Amer 56 L, Est GFR (MDRD) Non- Af 46 L, BUN/Creatinine Ratio 40.0 H, Glucose 383 H, Calcium 8.7 12/05/22 11:23: POC Glucose 400 H Radiography Diagnostic Testing: Radiology Impression Lower Extremity MRI 12/04/22 09:22 IMPRESSION: Posterior soft tissue wound with high-grade tear of the distal Achilles tendon and osteomyelitis of the posterior calcaneus. Electronically Signed: Morteza Jones MD at 12:10 EDT , Foot X-Ray 12/04/22 13:45 IMPRESSION: Intraoperative spot films of the right foot and ankle. Electronically Signed: César Jensen MD at 19:30 EDT , Physical Exam Const alert, oriented x3 and no apparent distress General Appearance: cooperative HEENT normocephalic, head/scalp atraumatic, moist oral mucous membranes and oropharynx normal Eyes PERRL and EOMs intact bilaterally Neck no lymphadenopathy, supple, no JVD and thyroid normal Lymph Lymphatic: no lymphadenopathy noted and no lymphedema noted Resp normal respiratory effort, normal air movement and clear to auscultation bilaterally Cardio regular rate, regular rhythm, S1 normal heart sound, S2 normal heart sound and no murmurs GI normal to inspection, nondistended, normoactive bowel sounds, soft to palpation, non-tender and non-distended Extremity Extremity Narrative: left foot wrapped in bandage. 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 Occurred about 3 to 4 weeks ago. She was given oral antibiotics by podiatry and had been following up at the wound clinic but also has gradually worsened and is not healing * on IV vancomycin and meropenem * podiatry on board. * had I&D and drainage of left Achilles tendon abscess and calcaneal bone, debridement of left Achilles tendon and comlex wound closure of left Achilles tendon surgical site. * P.o. Tylenol, oxycodone and IV morphine as needed for pain * MRI of the posterior soft tissue wound with high grade tear of the distal Achilles tendon and osteomyelitis of the posterior calcaneus. * # Sinus tachycardia * resolved * on atenolol * #Type 2 diabetes mellitus with neuropathy * Diabetes is very poorly controlled with a last A1c in October been 13.3 * She claims compliance with her medication * On dulaglutide 0.5 mg weekly as well as glimepiride 4 mg twice daily. She is also on insulin detemir 40 units nightly * Patient counseled strongly on compliance. * Insulin sliding scale. Accu-Cheks ACHS. * #Hyperlipidemia: On statin #Hypertension: On lisinopril and HCTZ as well as atenolol. DVT prophylaxis: lovenox CODE STATUS: Full code
[2022-12-05] MEDS: 0.9% Saline Lock 10 ML Syringe IV (12:58)
[2022-12-05 17:59] LABS: Vancomycin, Trough Level 26.9 ug/mL (5.0-15.0)
[2022-12-05 18:08] LABS: Bedside Glucose 276 mg/dL (74-106)
--- NOTE | 2022-12-05 18:26 | PCM.RX.CS ---
Consult Antibiotic Management Pharmacy has been consulted to manage selected antiobiotic: Vancomycin Type of Intervention Type of Consult: Follow-up Suspected Infection Suspected Infection: Skin/Soft tissue Labs Labs: Sodium 132 mmol/L (136-145) L 12/05/22 06:59 Potassium 3.8 mmol/L (3.5-5.1) 12/05/22 06:59 Chloride 101 mmol/L (98-107) 12/05/22 06:59 Carbon Dioxide 26.0 mmol/L (21.0-32.0) 12/05/22 06:59 Anion Gap 5 (5-15) 12/05/22 06:59 BUN 50 mg/dL (7-18) H 12/05/22 06:59 Creatinine 1.25 mg/dL (0.55-1.02) H 12/05/22 06:59 Est GFR (MDRD) Af Amer 56 mL/min (>60) L 12/05/22 06:59 Est GFR (MDRD) Non-Af 46 mL/min (>60) L 12/05/22 06:59 BUN/Creatinine Ratio 40.0 RATIO (10-20) H 12/05/22 06:59 Glucose 383 mg/dL (74-106) H 12/05/22 06:59 Vancomycin Trough 26.9 ug/mL (5.0-15.0) H 12/05/22 16:33 Microbiology Microbiology: Microbiology 12/03/22 14:20 Blood Culture (Wb) - Anticubital Right Blood Culture - Preliminary No growth in 48 hours. 12/03/22 14:02 Blood Culture (Wb) - Anticubital Left Blood Culture - Preliminary No growth in 48 hours. 12/04/22 Unknown Wound - Heel, Left Gram Stain - Final 12/04/22 Unknown Bone - Left Foot Gram Stain - Final 12/04/22 Unknown Bone - Left Foot Wound Culture - Preliminary Gram positive organism 12/04/22 Unknown Wound - Left Foot Gram Stain - Final 12/04/22 Unknown Wound - Left Foot Wound Culture - Preliminary Mixed Gram Positive Organisms 12/04/22 Unknown Wound - Left Foot Gram Stain - Final 12/04/22 Unknown Wound - Left Foot Wound Culture - Preliminary Gram positive organism Goal Trough Goal Trough: 15-20 mcg/mL Pharmacy Plan for Drug Dosing Pharmacy Plan for Drug Dosing: VANCOMYCIN LEVEL RECEIVED Current Vancomycin Dose: 1250mg q12h (05, 17) Number of Doses Received: x1 loading dose, x1 1000mg dose, x2 1250mg doses Vancomycin Level: 26.9 Hours Since Last Dose: 12 hours since last dose Renal Function: SrCr 1.25 Renal Function Trend: SrCr increased from 0.98 on 12/04/22 Lab/Micro: Vancomycin Plan/Comments: recommend holding future doses of Vancomycin due to trough >20. check trough level in 24 hours and dose according to level Pending Level: 12/06/22 at 1630 Pharmacy Service will continue to monitor and adjust dosing as required. Follow-Up Labs Follow-Up Labs: Trough: Vancomycin (12/06/22 @ 1630 (random level))
[2022-12-05] MEDS: 0.9% Normal Saline 1,000 ML 125 ML IV (18:57)
--- NOTE | 2022-12-05 20:01 | CASEMGMT ---
Social Work SW introduced self and role to patient. PT evaluation is recommending a SNF placement. A list of?SNF providers including quality and resource use data and consistent with patient?s preferred geographic region, medical needs, and insurance network were provided from the [facility] Guide. Patient is requesting either TCU or [facility]. VM left with referral for TCU/Rehab. Patient reports if neither are an option she would then consider [facility]. Plan: Follow up with TCU/Rehab referral for d/c planning. Janneth Walls [employer] HEL[employer], ENGINEER SPECIALIST
[2022-12-05] MEDS: Pravastatin 20 MG Tablet PO (21:13)
[2022-12-05] MEDS: MELATONIN 10 MG TABLET PO (21:13)
[2022-12-05] MEDS: Insulin Glargine-YFGN 100 UNIT/ML Pen 40 UNIT SC (21:20)
[2022-12-05 22:40] LABS: Bedside Glucose 322 mg/dL (74-106)
[2022-12-06 02:15] VITALS: BP 104/70; PULSE 92; RESP 16; TEMP 36.4; O2SAT 96
[2022-12-06] MEDS: 0.9% Normal Saline 1,000 ML 125 ML IV (02:16)
[2022-12-06] MEDS: oxyCODONE 5 MG Tablet PO ×5 (02:30→21:45)
[2022-12-06] MEDS: Nystatin Powder 15gm Bottle 1 APPLIC TOPICAL ×3 (05:07→21:54)
[2022-12-06 05:10] VITALS: BP 94/45; PULSE 86; RESP 16; TEMP 36; O2SAT 94
[2022-12-06 06:12] LABS: Absolute Lymphocyte Count 2.89 X10^3/uL (0.83-4.51); Basophil# 0.07 X10^3/uL; Basophil% 0.8 % (0-1); Eosinophil# 0.36 X10^3/uL; Hemoglobin 11.2 g/dL (12.0-15.0); Lymphocyte # 2.89 X10^3/ul (0.83-4.51); Mean Corp Hgb Conc 32.9 g/dL (32-36); Mean Corpuscular Hgb 31.3 pg (27.0-32.0); Mean Platelet Vol. 10.9 fl (6.2-12.0); Monocyte# 0.72 X10^3/uL; NRBC Flagged by Analyzer 0 % (0-5); Neutrophil # 4.95 X10^3/uL (2.7-7.7); Neutrophil % 54.8 % (47-70); Platelet Count 389 K/mm3 (150-450); RBC Distribution Width SD 45.1 fl (35.1-43.9); Red Blood Count 3.58 M/mm3 (4.2-5.4)
[2022-12-06] MEDS: Insulin Lispro 100 UNIT/ML INSULN.PEN SC ×4 (06:27→21:52)
[2022-12-06 06:44] LABS: Anion Gap 4 (5-15); BUN 55 mg/dL (7-18); BUN/Creat Ratio 57.2 RATIO (10-20); Calcium,Total 8.5 mg/dL (8.5-10.1); Chloride 106 mmol/L (98-107); Creatinine, Serum 0.96 mg/dL (0.55-1.02); EST Glomerular Filtration Rate 63 mL/min (>60); Est Glom Filt Rate - Afr Amer 76 mL/min (>60); Estimated Creatinine Clearance 53.14 ml/min; Glucose 315 mg/dL (74-106); Sodium Level 134 mmol/L (136-145)
[2022-12-06 06:47] LABS: Bedside Glucose 344 mg/dL (74-106)
[2022-12-06 07:24] VITALS: O2SAT 99
[2022-12-06] MEDS: Menthol/Lanolin/Calamine/Znox 113 GM Tube 1 APPLIC TOPICAL ×2 (09:23→21:56)
[2022-12-06] MEDS: Senna/Docusate Sodium 1 Tablet PO ×2 (09:28→21:46)
[2022-12-06] MEDS: Juven (unflavored) Packet 1 PACKET PO ×2 (09:28→21:45)
[2022-12-06] MEDS: Polyethylene Glycol 3350 17 GM PACKET 8.5 GM PO (09:29)
[2022-12-06] MEDS: Enoxaparin 40 MG/0.4 ML Syringe SC (09:31)
[2022-12-06] MEDS: Cholecalciferol (Vit D3) 125 MCG CAPSULE (5,000 UNITS) 250 MCG PO (09:31)
[2022-12-06] MEDS: Glimepiride 4 MG Tablet PO ×2 (09:52→17:05)
[2022-12-06] MEDS: Acetaminophen 325 MG Tablet 650 MG PO ×2 (09:53→17:10)
[2022-12-06] MEDS: Multivitamins,Ther W-Minerals Tablet 1 TABLET PO (09:53)
[2022-12-06 10:30] VITALS: BP 106/64; PULSE 91; RESP 18; TEMP 36.4; O2SAT 97
--- NOTE | 2022-12-06 11:07 | PCM.PROGNOTE ---
Subjective Subjective DAy 2 post op no change overnight pain controlled denies constitutionals Objective Data Objective Data Vital Signs: Vital Signs Temp Pulse Resp BP Pulse Ox O2 Del Method O2 Flow Rate 96.8 F L 86 16 94/45 L 99 Room Air 2 12/06/22 05:10 12/06/22 05:10 12/06/22 05:10 12/06/22 05:10 12/06/22 07:24 12/06/22 07:24 12/04/22 20:15 Oxygen Flow Rate (L/min) 2 Oxygen Delivery Method Room Air Weight: 104.7 kg Body Mass Index (BMI) 39.6 Intake & Output: Intake and Output for Last 24 Hours 12/04/22 12/05/22 12/06/22 23:59 23:59 23:59 Intake Total 2277.25 / 2597.25 2805 / 2805 1084.58 / 1084.58 Output Total 1400 / 1400 500 / 500 Balance 2277.25 / 1997.25 1405 / 1405 584.58 / 584.58 Lab / Micro Data 12/06/22 05:32 12/06/22 05:32 Labs: Laboratory Results - last 24 hr 12/05/22 11:23: POC Glucose 400 H 12/05/22 16:33: Vancomycin Trough 26.9 H 12/05/22 16:52: POC Glucose 276 H 12/05/22 21:19: POC Glucose 322 H 12/06/22 05:32: WBC 9.0, RBC 3.58 L, Hgb 11.2 L, Hct 34.0 L, MCV 95.0, MCH 31.3, MCHC 32.9, RDW Std Deviation 45.1 H, RDW Coeff of Yessi 13.0, Plt Count 389, MPV 10.9, Immature Gran % (Auto) 0.400, Neut % (Auto) 54.8, Lymph % (Auto) 32.0, [place] % (Auto) 8.0, Eos % (Auto) 4.0, Baso % (Auto) 0.8, Absolute Neuts (auto) 5.0, Absolute Lymphs (auto) 2.89, Nucleated RBC % 0, Sodium 134 L, Potassium 4.0, Chloride 106, Carbon Dioxide 24.0, Anion Gap 4 L, BUN 55 H, Creatinine 0.96, Estim Creat Clear Calc 53.14, Est GFR (MDRD) Af Amer 76, Est GFR (MDRD) Non-Af 63, BUN/Creatinine Ratio 57.2 H, Glucose 315 H, Calcium 8.5 12/06/22 06:28: POC Glucose 344 H Micro: Microbiology 12/04/22 Unknown Bone - Left Foot Gram Stain - Final 12/04/22 Unknown Bone - Left Foot Wound Culture - Preliminary Staphylococcus species Gram Positive Cocci 12/04/22 Unknown Wound - Heel, Left Gram Stain - Final 12/04/22 Unknown Wound - Heel, Left Wound Culture - Preliminary GPC Poss Enterococcus sp 12/04/22 Unknown Wound - Left Foot Gram Stain - Final 12/04/22 Unknown Wound - Left Foot Wound Culture - Preliminary Gram Positive Cocci Gram Positive Cocci#2 12/04/22 Unknown Wound - Left Foot Gram Stain - Final 12/04/22 Unknown Wound - Left Foot Wound Culture - Preliminary Gram positive organism 12/03/22 14:02 Blood Culture (Wb) - Anticubital Left Blood Culture - Preliminary 12/03/22 14:20 Blood Culture (Wb) - Anticubital Right Blood Culture - Preliminary No growth in 48 hours. Physical Exam Narrative Delta frame pin sites intact no signs of infection. Posterior ankle wound demonstrates some mild residual erythema with intact vessel loop closure. Wound demonstrates exposed calcaneal bone as well as some residual Achilles tendon. With pericalcaneal and Achilles granulation tissue noted. Neurovascular status unchanged. No evidence DVT. Assessment & Plan Assessment/Plan (1) Spontaneous rupture of flexor tendons, left ankle and foot: PLAN: Exam performed. Vital signs stable, leukocytosis resolved Tissue culture likely growing enterococcuss, + gram (+) cocci in bone cultures - recommend PICC Patient will require prolonged nonweightbearing, recommend SNF placement. Dressing changed today redressed with Betadine paint 4 x 4's Kerlix Ravi bandage. Vessel loop closure removed, will likely plan for wound vac upon d/c to SNF We will continue to follow closely. 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
[2022-12-06 12:41] LABS: Bedside Glucose 375 mg/dL (74-106)
--- NOTE | 2022-12-06 12:47 | NURSING ---
Used BSC and then this RN assisted to chair. Pt felt nauseated but before RN left pt said nausea was slowly resolving. [employer] worker just came to tell me that pt had emesis.
--- NOTE | 2022-12-06 12:57 | PN_ITS ---
Subjective Subjective Patient seen and examined. She had no complaints. Pain well controlled. Review of systems was otherwise negative. Objective Data Objective Data Vital Signs: Vital Signs Temp Pulse Resp BP Pulse Ox O2 Del Method O2 Flow Rate 96.8 F L 86 16 94/45 L 99 Room Air 2 12/06/22 05:10 12/06/22 05:10 12/06/22 05:10 12/06/22 05:10 12/06/22 07:24 12/06/22 07:24 12/04/22 20:15 Oxygen Flow Rate (L/min) 2 Oxygen Delivery Method Room Air Weight: 230 lb 13.184 oz Body Mass Index (BMI) 39.6 Intake & Output: Intake and Output for Last 24 Hours 12/04/22 12/05/22 12/06/22 23:59 23:59 23:59 Intake Total 2277.25 / 2597.25 2805 / 2805 2504.58 / 2504.58 Output Total 1400 / 1400 800 / 800 Balance 2277.25 / 1997.25 1405 / 1405 1704.58 / 1704.58 Lab / Micro Data 12/06/22 05:32 12/06/22 05:32 Labs: Laboratory Results - last 24 hr 12/05/22 16:33: Vancomycin Trough 26.9 H 12/05/22 16:52: POC Glucose 276 H 12/05/22 21:19: POC Glucose 322 H 12/06/22 05:32: WBC 9.0, RBC 3.58 L, Hgb 11.2 L, Hct 34.0 L, MCV 95.0, MCH 31.3, MCHC 32.9, RDW Std Deviation 45.1 H, RDW Coeff of Yessi 13.0, Plt Count 389, MPV 10.9, Immature Gran % (Auto) 0.400, Neut % (Auto) 54.8, Lymph % (Auto) 32.0, Dewitt % (Auto) 8.0, Eos % (Auto) 4.0, Baso % (Auto) 0.8, Absolute Neuts (auto) 5.0, Absolute Lymphs (auto) 2.89, Nucleated RBC % 0, Sodium 134 L, Potassium 4.0, Chloride 106, Carbon Dioxide 24.0, Anion Gap 4 L, BUN 55 H, Creatinine 0.96, Estim Creat Clear Calc 53.14, Est GFR (MDRD) Af Amer 76, Est GFR (MDRD) Non-Af 63, BUN/Creatinine Ratio 57.2 H, Glucose 315 H, Calcium 8.5 12/06/22 06:28: POC Glucose 344 H 12/06/22 12:03: POC Glucose 375 H Micro: Microbiology 12/04/22 Unknown Bone - Left Foot Gram Stain - Final 12/04/22 Unknown Bone - Left Foot Wound Culture - Preliminary Staphylococcus species Gram Positive Cocci 12/04/22 Unknown Wound - Heel, Left Gram Stain - Final 12/04/22 Unknown Wound - Heel, Left Wound Culture - Preliminary GPC Poss Enterococcus sp 12/04/22 Unknown Wound - Left Foot Gram Stain - Final 12/04/22 Unknown Wound - Left Foot Wound Culture - Preliminary Gram Positive Cocci Gram Positive Cocci#2 12/04/22 Unknown Wound - Left Foot Gram Stain - Final 12/04/22 Unknown Wound - Left Foot Wound Culture - Preliminary Gram positive organism 12/03/22 14:02 Blood Culture (Wb) - Anticubital Left Blood Culture - Preliminary 12/03/22 14:20 Blood Culture (Wb) - Anticubital Right Blood Culture - P reliminary No growth in 48 hours. Physical Exam Const alert, oriented x3 and no apparent distress General Appearance: cooperative HEENT normocephalic, head/scalp atraumatic, moist oral mucous membranes and oropharynx normal Eyes PERRL and EOMs intact bilaterally Neck no lymphadenopathy, supple, no JVD and thyroid normal Lymph Lymphatic: no lymphadenopathy noted and no lymphedema noted Resp normal respiratory effort, normal air movement and clear to auscultation bilaterally Cardio regular rate, regular rhythm, S1 normal heart sound, S2 normal heart sound and no murmurs GI normal to inspection, nondistended, normoactive bowel sounds, soft to palpation, non-tender and non-distended Extremity Extremity Narrative: left foot wrapped in bandage. 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 Occurred about 3 to 4 weeks prior to admission. She was given oral antibiotics by podiatry and had been following up at the wound clinic but also has gradually worsened and is not healing * on IV vancomycin and meropenem * podiatry on board. * had I&D and drainage of left Achilles tendon abscess and calcaneal bone, debridement of left Achilles tendon and comlex wound closure of left Achilles tendon surgical site. * wound cultures growing Staphylococcus species with possible Enterococcus species * P.o. Tylenol, oxycodone and IV morphine as needed for pain * MRI of the posterior soft tissue wound with high grade tear of the distal Achilles tendon and osteomyelitis of the posterior calcaneus. * # Sinus tachycardia * resolved * on atenolol * #Type 2 diabetes mellitus with neuropathy * Diabetes is very poorly controlled with a last A1c in October been 13.3 * She claims compliance with her medication * On dulaglutide 0.5 mg weekly as well as glimepiride 4 mg twice daily. She is also on insulin detemir 40 units nightly * Patient counseled strongly on compliance. * Insulin sliding scale. Accu-Cheks ACHS. * #Hyperlipidemia: On statin #Hypertension: On lisinopril and HCTZ as well as atenolol. DVT prophylaxis: lovenox CODE STATUS: Full code Charges/Coding Visit Charges Inpatient E&M: 38700 Subs Hosp L2
[2022-12-06] MEDS: Ondansetron 4 MG/2 ML Vial IV (12:59)
[2022-12-06] MEDS: 0.9% Saline Lock 10 ML Syringe IV ×2 (12:59→18:51)
[2022-12-06 16:47] VITALS: BP 105/63; PULSE 96; RESP 16; TEMP 36.6; O2SAT 99
[2022-12-06 17:25] LABS: Bedside Glucose 444 mg/dL (74-106)
--- NOTE | 2022-12-06 17:43 | PCM.RX.CS ---
Consult Antibiotic Management Pharmacy has been consulted to manage selected antiobiotic: Vancomycin Type of Intervention Type of Consult: Follow-up Suspected Infection Suspected Infection: Skin/Soft tissue Labs Labs: Sodium 134 mmol/L (136-145) L 12/06/22 05:32 Potassium 4.0 mmol/L (3.5-5.1) 12/06/22 05:32 Chloride 106 mmol/L (98-107) 12/06/22 05:32 Carbon Dioxide 24.0 mmol/L (21.0-32.0) 12/06/22 05:32 Anion Gap 4 (5-15) L 12/06/22 05:32 BUN 55 mg/dL (7-18) H 12/06/22 05:32 Creatinine 0.96 mg/dL (0.55-1.02) 12/06/22 05:32 Est GFR (MDRD) Af Amer 76 mL/min (>60) 12/06/22 05:32 Est GFR (MDRD) Non-Af 63 mL/min (>60) 12/06/22 05:32 BUN/Creatinine Ratio 57.2 RATIO (10-20) H 12/06/22 05:32 Glucose 315 mg/dL (74-106) H 12/06/22 05:32 Vancomycin Trough 26.9 ug/mL (5.0-15.0) H 12/05/22 16:33 Random Vancomycin 14.0 ug/mL (0.0-15.0) 12/06/22 16:30 Microbiology Microbiology: Microbiology 12/04/22 Unknown Bone - Left Foot Gram Stain - Final 12/04/22 Unknown Bone - Left Foot Wound Culture - Preliminary Staphylococcus species Gram Positive Cocci 12/04/22 Unknown Wound - Heel, Left Gram Stain - Final 12/04/22 Unknown Wound - Heel, Left Wound Culture - Preliminary GPC Poss Enterococcus sp 12/04/22 Unknown Wound - Left Foot Gram Stain - Final 12/04/22 Unknown Wound - Left Foot Wound Culture - Preliminary Gram Positive Cocci Gram Positive Cocci#2 12/04/22 Unknown Wound - Left Foot Gram Stain - Final 12/04/22 Unknown Wound - Left Foot Wound Culture - Preliminary Gram positive organism 12/03/22 14:02 Blood Culture (Wb) - Anticubital Left Blood Culture - Preliminary 12/03/22 14:20 Blood Culture (Wb) - Anticubital Right Blood Culture - Preliminary No growth in 48 hours. Goal Trough Goal Trough: 15-20 mcg/mL Pharmacy Plan for Drug Dosing Pharmacy Plan for Drug Dosing: VANCOMYCIN LEVEL RECEIVED Current Vancomycin Dose: on hold due to elevated trough (26.9) Number of Doses Received: Vancomycin Level: random level resulted at 14.0 Hours Since Last Dose: 36 hours since last dose of 1250mg Renal Function: SrCr 0.96 Renal Function Trend: SrCr improving. Was 1.25 on 12/06/22 Lab/Micro: Vancomycin Plan/Comments: recommend restarting vancomycin at 1000mg q12h. checking trough prior to the 3rd dose to ensure pt's trough isn't elevated Pending Level: 12/07/22 at 1730 Pharmacy Service will continue to monitor and adjust dosing as required. Follow-Up Labs Follow-Up Labs: Trough: Vancomycin (12/07/22 at 1730)
[2022-12-06] MEDS: Vancomycin IV 1,000 MG/200 ML BAG 200 MG IV (18:48)
[2022-12-06 21:45] VITALS: BP 102/63; PULSE 89; RESP 16; TEMP 36.7; O2SAT 98
[2022-12-06] MEDS: Pravastatin 20 MG Tablet PO (21:45)
[2022-12-06] MEDS: MELATONIN 10 MG TABLET PO (21:46)
[2022-12-06] MEDS: Insulin Glargine-YFGN 100 UNIT/ML Pen 40 UNIT SC (21:53)
[2022-12-06 22:39] LABS: Bedside Glucose 333 mg/dL (74-106)
[2022-12-07 01:30] VITALS: BP 136/80; PULSE 89; RESP 16; TEMP 36.7; O2SAT 97
[2022-12-07] MEDS: oxyCODONE 5 MG Tablet PO ×4 (01:48→18:55)
[2022-12-07] MEDS: Acetaminophen 325 MG Tablet 650 MG PO ×3 (01:48→18:56)
[2022-12-07 04:50] VITALS: BP 125/62; PULSE 90; RESP 16; TEMP 36.1; O2SAT 97
[2022-12-07] MEDS: Nystatin Powder 15gm Bottle 1 APPLIC TOPICAL ×2 (05:05→21:32)
[2022-12-07] MEDS: Vancomycin IV 1,000 MG/200 ML BAG 200 MG IV ×2 (06:02→18:42)
[2022-12-07] MEDS: Insulin Lispro 100 UNIT/ML INSULN.PEN SC ×4 (06:06→21:46)
[2022-12-07 06:21] LABS: Absolute Neutrophil Count 5.8 X10^3/uL (2.0-7.7); Basophil# 0.06 X10^3/uL; Basophil% 0.6 % (0-1); Eosinophil# 0.44 X10^3/uL; Eosinophils% 4.7 % (0-5); Hematocrit 33.6 % (37-47); Hemoglobin 11.2 g/dL (12.0-15.0); Lymphocyte % 23.4 % (19-41); Mean Corp Hgb Conc 33.3 g/dL (32-36); Mean Corpuscular Hgb 31.8 pg (27.0-32.0); Mean Corpuscular Volume 95.5 fL (81-99); Mean Platelet Vol. 10.2 fl (6.2-12.0); Monocyte# 0.84 X10^3/uL; Monocyte% 8.9 % (0-10); NRBC Flagged by Analyzer 0 % (0-5); Neutrophil # 5.82 X10^3/uL (2.7-7.7); Neutrophil % 62.1 % (47-70); Platelet Count 427 K/mm3 (150-450); RBC Distribution Width CV 13.5 % (11.6-14.6); RBC Distribution Width SD 47.4 fl (35.1-43.9); Red Blood Count 3.52 M/mm3 (4.2-5.4); White Blood Count 9.4 K/mm3 (4.4-11.0)
[2022-12-07 06:25] LABS: Bedside Glucose 208 mg/dL (74-106)
[2022-12-07 06:55] LABS: Anion Gap 5 (5-15); BUN 38 mg/dL (7-18); BUN/Creat Ratio 50.3 RATIO (10-20); Calcium,Total 8.5 mg/dL (8.5-10.1); Chloride 107 mmol/L (98-107); Creatinine, Serum 0.76 mg/dL (0.55-1.02); EST Glomerular Filtration Rate 83 mL/min (>60); Est Glom Filt Rate - Afr Amer 100 mL/min (>60); Estimated Creatinine Clearance 67.13 ml/min; Glucose 206 mg/dL (74-106); Potassium 4.2 mmol/L (3.5-5.1); Sodium Level 138 mmol/L (136-145)
[2022-12-07 09:09] VITALS: BP 132/65; PULSE 96; RESP 16; TEMP 35.9; O2SAT 98
--- NOTE | 2022-12-07 09:19 | WOUNDNOTE ---
wound photo: left lower leg
--- NOTE | 2022-12-07 09:19 | WOUNDNOTE ---
wound photo: left lower leg
--- NOTE | 2022-12-07 09:20 | WOUNDNOTE ---
wound photo: left lower leg
--- NOTE | 2022-12-07 09:20 | WOUNDNOTE ---
wound photo: left posterior lower leg/Achilles
[2022-12-07] MEDS: Glimepiride 4 MG Tablet PO ×2 (09:55→17:17)
[2022-12-07] MEDS: Menthol/Lanolin/Calamine/Znox 113 GM Tube 1 APPLIC TOPICAL ×2 (10:04→21:32)
--- NOTE | 2022-12-07 10:36 | CASEMGMT ---
[facility] in TCU/Rehab said they have no TCU beds. Acute Rehab physician is reviewing patient's chart to see if she will accept patient in the Acute Rehab Unit. SW also had Tamica d/carmela enterprise resource planning consultant send a referral to [facility]. Ana Maxwell RATINGS ANALYST SHANEKA
--- NOTE | 2022-12-07 10:37 | CASEMGMT ---
Discharge Planning Referral sent to [facility] via [facility]. Tamica Rivas, Discharge Planning Asst.
--- NOTE | 2022-12-07 11:26 | CASEMGMT ---
[facility] declined patient. SW is still waiting on [facility] Acute Rehab. DOMINIQUE met with patient and her . Introduced self and role at [facility]. DOMINIQUE let them know TCU has no availability, Rehab is still reviewing her chart, and [facility] has declined. DOMINIQUE asked for patient's next choice. Patient's next choice if Rehab says no would be [facility] ([facility]). DOMINIQUE notified Tamica d/c planning aide to please send a referral to [facility]. Ana Maxwell ENGRAVED ROLLER INSPECTOR SHANEKA
--- NOTE | 2022-12-07 11:31 | CASEMGMT ---
Discharge Planning [facility] declined d/t insurance (they have limit on [employer] admits). Referral sent to [facility] via [facility]. Tamica Rivas, Discharge Planning Asst.
[2022-12-07 11:36] VITALS: O2SAT 98
[2022-12-07] MEDS: Senna/Docusate Sodium 1 Tablet PO ×2 (12:07→21:47)
[2022-12-07] MEDS: Enoxaparin 40 MG/0.4 ML Syringe SC (12:07)
[2022-12-07] MEDS: 0.9% Saline Lock 10 ML Syringe IV ×3 (12:08→18:42)
[2022-12-07] MEDS: Ondansetron 4 MG/2 ML Vial IV (12:09)
[2022-12-07 12:39] LABS: Bedside Glucose 272 mg/dL (74-106)
--- NOTE | 2022-12-07 13:50 | CASEMGMT ---
Inpatient Rehab will take patient. [facility] will submit for insurance approval. DOMINIQUE will let patient know. DOMINIQUE also asked Tamica d/c community health planning director to please notify [facility]. Ana MUNROE
[2022-12-07 14:42] VITALS: BP 123/73; PULSE 98; RESP 16; TEMP 36.3; O2SAT 96
[2022-12-07] MEDS: Multivitamins,Ther W-Minerals Tablet 1 TABLET PO (14:55)
[2022-12-07] MEDS: Polyethylene Glycol 3350 17 GM PACKET 8.5 GM PO (14:57)
[2022-12-07] MEDS: Juven (unflavored) Packet 1 PACKET PO ×2 (14:57→21:41)
[2022-12-07] MEDS: Cholecalciferol (Vit D3) 125 MCG CAPSULE (5,000 UNITS) 250 MCG PO (14:59)
--- NOTE | 2022-12-07 15:28 | CHAPLAIN ---
Type of Pastoral Visit _x__ Initial Visit ___ Follow-up Visit ___ On-call Visit ___ General Patient Visit ___ Spiritual Assessment ___ Family Conference ___ Bereavement ___ Rapid Response ___ Code Blue ___ Other (describe below) Pastoral Care Referral From _x__ Patient ___ Family ___ Nurse ___ Physician ___ Blade Operator ___ Project Facilitator ___ Other (describe below) Sacrament/Intervention _x__ Active listening ___ Anointing ___ Yazidism ___ Bereavement ___ Communion _x__ Nuria exploration ___ _x__ Life review _x__ Prayer ___ Reconciliation ___ Sacrament of Sick _x__ Supportive presence ___ Wedding ___ Other (describe below) Pastoral Comments patient and spouse in the room; pt reports that this is their 41st anniversary; discussion about the health issues of both and how their anniversary is sometimes celebrated in the hospital; 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
[2022-12-07 17:41] LABS: Bedside Glucose 229 mg/dL (74-106)
[2022-12-07 18:11] LABS: Vancomycin, Trough Level 20.6 ug/mL (5.0-15.0)
--- NOTE | 2022-12-07 18:34 | PCM.PN.HOSP ---
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 Objective Data Objective Data Vital Signs: Vital Signs Temp Pulse Resp BP Pulse Ox O2 Del Method O2 Flow Rate 97.4 F L 98 16 123/73 H 96 Room Air 2 12/07/22 14:42 12/07/22 14:42 12/07/22 14:42 12/07/22 14:42 12/07/22 14:42 12/07/22 14:42 12/04/22 20:15 Oxygen Flow Rate (L/min) 2 Oxygen Delivery Method Room Air Weight: 104.7 kg Body Mass Index (BMI) 39.6 Intake & Output: Intake and Output for Last 24 Hours 12/05/22 12/06/22 12/07/22 23:59 23:59 23:59 Intake Total 2805 / 2805 3354.58 / 3594.58 660 / 660 Output Total 1400 / 1400 1500 / 2500 3200 / 3200 Balance 1405 / 1405 1854.58 / 1094.58 -2540 / -2540 Lab / Micro Data 12/07/22 05:44 12/07/22 05:44 Labs: Laboratory Results - last 24 hr 12/06/22 21:51: POC Glucose 333 H 12/07/22 05:44: WBC 9.4, RBC 3.52 L, Hgb 11.2 L, Hct 33.6 L, MCV 95.5, MCH 31.8, MCHC 33.3, RDW Std Deviation 47.4 H, RDW Coeff of Yessi 13.5, Plt Count 427, MPV 10.2, Immature Gran % (Auto) 0.300, Neut % (Auto) 62.1, Lymph % (Auto) 23.4, Nobles % (Auto) 8.9, Eos % (Auto) 4.7, Baso % (Auto) 0.6, Absolute Neuts (auto) 5.8, Absolute Lymphs (auto) 2.20, Nucleated RBC % 0, Sodium 138, Potassium 4.2, Chloride 107, Carbon Dioxide 26.0, Anion Gap 5, BUN 38 H, Creatinine 0.76, Estim Creat Clear Calc 67.13, Est GFR (MDRD) Af Amer 100, Est GFR (MDRD) Non-Af 83, BUN/Creatinine Ratio 50.3 H, Glucose 206 H, Calcium 8.5 12/07/22 06:05: POC Glucose 208 H 12/07/22 12:05: POC Glucose 272 H 12/07/22 17:10: Vancomycin Trough 20.6 H 12/07/22 17:13: POC Glucose 229 H Micro: Microbiology 12/04/22 Unknown Bone - Left Foot Gram Stain - Final 12/04/22 Unknown Bone - Left Foot Wound Culture - Preliminary Staphylococcus capitis Streptococcus sanguinis 12/04/22 Unknown Bone - Left Foot Anaerobic Culture - Preliminary Checking for anaerobes, further studies to follow. 12/04/22 Unknown Wound - Heel, Left Gram Stain - Final 12/04/22 Unknown Wound - Heel, Left Wound Culture - Final Enterococcus faecalis 12/04/22 Unknown Wound - Heel, Left Anaerobic Culture - Preliminary Checking for anaerobes, further studies to follow. 12/04/22 Unknown Wound - Left Foot Gram Stain - Final 12/04/22 Unknown Wound - Left Foot Wound Culture - Preliminary Enterococcus faecalis Alpha Hemolytic Streptococcus 12/04/22 Unknown Wound - Left Foot Anaerobic Culture - Preliminary Checking for anaerobes, further studies to follow. 12/04/22 Unknown Wound - Left Foot Gram Stain - Final 12/04/22 Unknown Wound - Left Foot Wound Culture - Preliminary Streptococcus sanguinis 12/04/22 Unknown Wound - Left Foot Anaerobic Culture - Preliminary Checking for anaerobes, further studies to follow. 12/03/22 14:02 Blood Culture (Wb) - Anticubital Left Blood Culture - Preliminary 12/03/22 14:20 Blood Culture (Wb) - Anticubital Right Blood Culture - Preliminary No growth in 48 hours. Physical Exam Const alert, oriented x3, no apparent distress, average body habitus and healthy appearing General Appearance: cooperative, well kempt and well developed Orientation / Consciousness: awake, oriented to person, oriented to place and oriented to time HEENT normocephalic, head/scalp atraumatic and moist oral mucous membranes Eyes PERRL, EOMs intact bilaterally and conjunctivae normal Neck supple, no JVD, thyroid normal and no carotid bruits General: trachea midline Resp normal respiratory effort, no retractions, no use of accessory muscles and clear to auscultation bilaterally Auscultation: Negative for rales, rhonchi or wheezes Cardio regular rate, regular rhythm, S1 normal heart sound, S2 normal heart sound, no murmurs, no rub and no gallops GI normal to inspection, nondistended, normoactive bowel sounds, soft to palpation, non-tender and non-distended Extremity Extremity Narrative: Patient's left lower extremity has a stabilizing brace on it Neuro oriented x3, CN's II-XII intact bilaterally, no focal motor deficits and no sensory deficits noted Sensorium / Orientation: awake and alert Speech: speech normal Psych affect normal Assessment & Plan Assessment/Plan (1) Spontaneous rupture of flexor tendons, left ankle and foot: PLAN: Plan 1. Osteomyelitis of the calcaneus-multi organisms, I discussed her care with podiatry (Dr. Wu), I will have infectious diseases see the patient tomorrow for antibiotic guidance, she may need a PICC line #2 rupture of the Achilles tendon-complicates care, medical course, recovery, and prognosis, PT and OT are seeing patient, we are trying to get her placed into the rehab unit at [facility]. #3 type 2 diabetes-uncontrolled, blood sugars will be monitored , sliding scale insulin will be used, I have decided to stop her Amaryl and place her on insulin with meals and increase her basal insulin. #4 essential hypertension-I will restart the patient's lisinopril at a lower dosage, atenolol will be discontinued and hydrochlorothiazide will be discontinued. Total clinical time spent by myself addressing the patient's medical issues, reviewing all of her data, and collaborating with patient's care team: 50 minutes Charges/Coding Visit Charges Inpatient E&M: [address] [place] [id number]
--- NOTE | 2022-12-07 18:37 | NURSING ---
Spoke with pharmacist Sudheer regarding vanc dosing and trough. Advised by Sudheer to hang 1800 dose of vanc.
--- NOTE | 2022-12-07 19:22 | PCM.RX.CS ---
Consult Antibiotic Management Pharmacy has been consulted to manage selected antiobiotic: Vancomycin Type of Intervention Type of Consult: Follow-up Suspected Infection Suspected Infection: Skin/Soft tissue Prior Doses of Antibiotics Prior Doses of Antibiotics Received/Current Regimen: Currently on dose of 1000mg iv q12h. Labs Labs: Sodium 138 mmol/L (136-145) 12/07/22 05:44 Potassium 4.2 mmol/L (3.5-5.1) 12/07/22 05:44 Chloride 107 mmol/L (98-107) 12/07/22 05:44 Carbon Dioxide 26.0 mmol/L (21.0-32.0) 12/07/22 05:44 Anion Gap 5 (5-15) 12/07/22 05:44 BUN 38 mg/dL (7-18) H 12/07/22 05:44 Creatinine 0.76 mg/dL (0.55-1.02) 12/07/22 05:44 Est GFR (MDRD) Af Amer 100 mL/min (>60) 12/07/22 05:44 Est GFR (MDRD) Non-Af 83 mL/min (>60) 12/07/22 05:44 BUN/Creatinine Ratio 50.3 RATIO (10-20) H 12/07/22 05:44 Glucose 206 mg/dL (74-106) H 12/07/22 05:44 Vancomycin Trough 20.6 ug/mL (5.0-15.0) H 12/07/22 17:10 Random Vancomycin 14.0 ug/mL (0.0-15.0) 12/06/22 16:30 Microbiology Microbiology: Microbiology 12/04/22 Unknown Bone - Left Foot Gram Stain - Final 12/04/22 Unknown Bone - Left Foot Wound Culture - Preliminary Staphylococcus capitis Streptococcus sanguinis 12/04/22 Unknown Bone - Left Foot Anaerobic Culture - Preliminary Checking for anaerobes, further studies to follow. 12/04/22 Unknown Wound - Heel, Left Gram Stain - Final 12/04/22 Unknown Wound - Heel, Left Wound Culture - Final Enterococcus faecalis 12/04/22 Unknown Wound - Heel, Left Anaerobic Culture - Preliminary Checking for anaerobes, further studies to follow. 12/04/22 Unknown Wound - Left Foot Gram Stain - Final 12/04/22 Unknown Wound - Left Foot Wound Culture - Preliminary Enterococcus faecalis Alpha Hemolytic Streptococcus 12/04/22 Unknown Wound - Left Foot Anaerobic Culture - Preliminary Checking for anaerobes, further studies to follow. 12/04/22 Unknown Wound - Left Foot Gram Stain - Final 12/04/22 Unknown Wound - Left Foot Wound Culture - Preliminary Streptococcus sanguinis 12/04/22 Unknown Wound - Left Foot Anaerobic Culture - Preliminary Checking for anaerobes, further studies to follow. 12/03/22 14:02 Blood Culture (Wb) - Anticubital Left Blood Culture - Preliminary 12/03/22 14:20 Blood Culture (Wb) - Anticubital Right Blood Culture - Preliminary No growth in 48 hours. Dosing Weight Weight used for dosin.7 kg Estimated Creatinine Clearance Estimated Creatinine Clearance: 91 ml/min Pharmacy Plan for Drug Dosing Pharmacy Plan for Drug Dosing: Renal improved from Cr 0.96 to 0.76. CrCl per adjusted body weight 91ml/min. Trough today 20.6 at 11 hrs post dose. (goal 15-20). Will keep dose same for now since Cr improved. New trough ordered for before another 4th dose. Pharmacy Service will continue to monitor and adjust dosing as required. Follow-Up Labs Follow-Up Labs: Trough: Vancomycin (8.16.23 @0530 before 0600 dose)
[2022-12-07 21:00] VITALS: BP 139/74; PULSE 97; RESP 14; TEMP 36.9; O2SAT 97
[2022-12-07] MEDS: Insulin Glargine-YFGN 100 UNIT/ML Pen 50 UNIT SC (21:45)
[2022-12-07] MEDS: Pravastatin 20 MG Tablet PO (21:47)
[2022-12-07] MEDS: MELATONIN 10 MG TABLET PO (21:47)
[2022-12-07 22:42] LABS: Bedside Glucose 271 mg/dL (74-106)
[2022-12-08] MEDS: 0.9% Saline Lock 10 ML Syringe IV ×3 (00:40→21:00)
[2022-12-08] MEDS: Ondansetron 4 MG/2 ML Vial IV ×3 (00:41→21:00)
[2022-12-08] MEDS: Acetaminophen 325 MG Tablet 650 MG PO ×3 (02:50→20:38)
[2022-12-08] MEDS: oxyCODONE 5 MG Tablet PO ×4 (02:50→20:38)
[2022-12-08 03:00] VITALS: BP 111/69; PULSE 89; RESP 14; TEMP 36.6; O2SAT 96
[2022-12-08] MEDS: Nystatin Powder 15gm Bottle 1 APPLIC TOPICAL ×3 (05:04→20:50)
[2022-12-08] MEDS: Vancomycin IV 1,000 MG/200 ML BAG 200 MG IV ×2 (06:20→17:36)
[2022-12-08 07:28] VITALS: O2SAT 95
[2022-12-08] MEDS: Insulin Lispro 100 UNIT/ML INSULN.PEN SC ×4 (08:46→20:49)
[2022-12-08] MEDS: Insulin Lispro 100 UNIT/ML INSULN.PEN 15 UNIT SC ×2 (08:47→11:50)
--- NOTE | 2022-12-08 09:48 | CASEMGMT ---
DOMINIQUE was informed that patient's insurance is requesting a peer to peer. SW notified physician. Physician would like to talk with DOMINIQUE. Ana MUNROE
--- NOTE | 2022-12-08 09:55 | PCM.CONS.GEN ---
Assessment & Plan Assessment/Plan (1) Osteomyelitis of foot, left, acute: PLAN: Taken to OR 12/04/[address] Wu for I&D and external fixator placement. Wound and surg cxs with MS-staph hominis, enterococcus, and strep. H/o rash with augmentin. On vanc, will stop cefepime. Will order picc and 6 weeks iv vanc, stop date 01/15/23 with weekly labs, ID followup in 2-3 weeks. Will follow, thank you, d/w behavioral health case manager (2) Spontaneous rupture of flexor tendons, left ankle and foot: (3) Diabetes mellitus with diabetic polyneuropathy: HPI Consult Data Date of Consult: 12/08/22 HPI Narrative Reason for Consultation: osteo HPI Narrative: NOHEMY PARK, is a 62 F with h/o DM and MS, presented to ED 12/03 with several weeks of worsening L ankle wound with redness, swelling, redness, and drainage. Thinks it started when shoe was rubbing. Did not improve with antibiotic ointment. Referred to wound center, followed with Dr. Beauchamp. Given doxy/cipro then doxy/levaquin but sx only worsened. Sent to ED, has been on vanc/cefepime here. Taken to OR 12/04/[address] Wu for I&D and ext fixator placement. Feeling ok, pain controlled, no fever, no n/v/d. Full ROS performed and neg except as noted above. PFSH Medical History Anxiety Diabetes Hypertension Multiple sclerosis Non-smoker Home Medications atenolol 100 mg tablet 100 mg PO DAILY 02/22/15 [History Last Taken 11/26/22] glimepiride 4 mg tablet 4 mg PO BID 07/01/22 [History Last Taken 12/03/22] hydroxyzine pamoate 25 mg capsule 25 mg PO DAILY 07/01/22 [History Last Taken 12/02/22] insulin detemir U-100 100 unit/mL (3 mL) subcutaneous pen (Levemir FlexPen) 40 unit subcut QHS 07/01/22 [History Last Taken 12/02/22] pravastatin 20 mg tablet 20 mg PO QHS 07/01/22 [History Last Taken 12/02/22] tizanidine 2 mg tablet 2 mg PO TID PRN spasms 07/01/22 [History Last Taken 12/02/22] dulaglutide 0.75 mg/0.5 mL subcutaneous pen injector (Trulicity) 0.75 mg subcut QWEEK 11/19/22 [History Last Taken 11/25/22] Lactobacillus acidophilus 10 billion cell capsule (Probiotic) 100 mmu cells PO DAILY 12/03/22 [History Last Taken 12/03/22] arginine 7 gram-glutamine 7 gram-calcium HMB 1.5 gram oral powder pack (Jose Alberto) 1 ea PO BID SUPPLEMENT 12/03/22 [History Last Taken 12/02/22] cholecalciferol (vitamin D3) 125 mcg (5,000 unit) capsule 250 mcg PO DAILY 12/03/22 [History Last Taken 12/03/22] hydrochlorothiazide 25 mg tablet 25 mg PO DAILY FLUID 12/03/22 [History Last Taken Unknown] lisinopril 40 mg tablet 40 mg PO DAILY B/P 12/03/22 [History Last Taken 11/26/22] melatonin 5 mg capsule 10 mg PO QHS SLEEP 12/03/22 [History Last Taken 12/02/22] multivitamin with minerals-folic acid 120 mcg chewable tablet (Women's Multivitamin Gummies) 1 tab PO DAILY 12/03/22 [History Last Taken Unknown] polyethylene glycol 3350 17 gram/dose oral powder (ClearLax) 8.5 g PO DAILY CONSTIPATION 12/03/22 [History Last Taken Unknown] vancomycin 1 gram/200 mL in dextrose 5 % intravenous piggyback 1,000 mg IV Q12H 38 days #15,200 mL 12/08/22 [Rx Last Taken Unknown] Allergy/AdvReac Type Severity Reaction Status Date / Time amoxicillin trihydrate Allergy Rash Verified 12/03/22 15:22 [From Augmentin] diflunisal [From Dolobid] Allergy Rash Verified 12/03/22 15:22 moxifloxacin HCl Allergy Rash Verified 12/03/22 15:22 [From Avelox] potassium clavulanate Allergy Rash Verified 12/03/22 15:22 [From Augmentin] sulfamethoxazole Allergy Rash Verified 12/03/22 15:22 [From Bactrim] trimethoprim [From Bactrim] Allergy Rash Verified 12/03/22 15:22 Surgical History History of appendectomy History of cholecystectomy Social History Smoking Status: Never smoker Physical Exam Const alert, oriented x3 and no apparent distress General Appearance: cooperative HEENT normocephalic and head/scalp atraumatic Eyes PERRL and EOMs intact bilaterally Neck supple and No nodes Resp normal air movement and clear to auscultation bilaterally Cardio regular rate and regular rhythm GI soft to palpation, non-tender and non-distended Extremity General Extremity: Negative for edema Skin Skin Narrative: reviewed photos Neuro CN's II-XII intact bilaterally Lab / Micro Data Attestation: I reviewed the patient's lab results. 12/07/22 05:44 12/07/22 05:44 Labs: Laboratory Results - last 24 hr 12/07/22 12:05: POC Glucose 272 H 12/07/22 17:10: Vancomycin Trough 20.6 H 12/07/22 17:13: POC Glucose 229 H 12/07/22 21:44: POC Glucose 271 H Micro: Microbiology 12/03/22 14:02 Blood Culture (Wb) - Anticubital Left Blood Culture - Preliminary Anaerobic cocci 12/04/22 Unknown Wound - Left Foot Gram Stain - Final 12/04/22 Unknown Wound - Left Foot Wound Culture - Final Streptococcus sanguinis Enterococcus faecalis 12/04/22 Unknown Wound - Left Foot Anaerobic Culture - Preliminary Checking for anaerobes, further studies to follow. 12/04/22 Unknown Bone - Left Foot Gram Stain - Final 12/04/22 Unknown Bone - Left Foot Wound Culture - Preliminary Staphylococcus capitis Streptococcus sanguinis 12/04/22 Unknown Bone - Left Foot Anaerobic Culture - Preliminary Checking for anaerobes, further studies to follow. 12/04/22 Unknown Wound - Heel, Left Gram Stain - Final 12/04/22 Unknown Wound - Heel, Left Wound Culture - Final Enterococcus faecalis 12/04/22 Unknown Wound - Heel, Left Anaerobic Culture - Preliminary Checking for anaerobes, further studies to follow. 12/04/22 Unknown Wound - Left Foot Gram Stain - Final 12/04/22 Unknown Wound - Left Foot Wound Culture - Preliminary Enterococcus faecalis Alpha Hemolytic Streptococcus 12/04/22 Unknown Wound - Left Foot Anaerobic Culture - Preliminary Checking for anaerobes, further studies to follow.
--- NOTE | 2022-12-08 10:18 | CASEMGMT ---
SW spoke with patient and let her know that her insurance is not willing to approve [facility] Acute Rehab Unit for patient. SW explained that Acute Rehab requires her to do 3 hours of therapy every day. SW explained to patient that [facility] accepted her and insurance will be more likely to approve a shelter. Patient verbalized disappointment, but agreement with plan. DOMINIQUE asked Tamica d/c experience planning strategist to send updated information to [facility] and start the pre-cert. Plan: [facility] pending insurance approval. Ana Maxwell PAPIER MACHE MOLDERVasu MUNROE
--- NOTE | 2022-12-08 10:25 | CASEMGMT ---
Discharge Planning Updates sent to [facility] and asked for pre-cert to be submitted. Tamica Riavs, Discharge Planning Asst.
[2022-12-08 10:59] VITALS: BP 135/78; PULSE 92; RESP 16; TEMP 35.9; O2SAT 98
[2022-12-08 11:14] LABS: Bedside Glucose 307 mg/dL (74-106)
[2022-12-08] MEDS: Juven (unflavored) Packet 1 PACKET PO ×2 (11:31→20:42)
[2022-12-08] MEDS: Polyethylene Glycol 3350 17 GM PACKET 8.5 GM PO (11:31)
[2022-12-08] MEDS: Enoxaparin 40 MG/0.4 ML Syringe SC (11:31)
[2022-12-08] MEDS: Multivitamins,Ther W-Minerals Tablet 1 TABLET PO (11:31)
[2022-12-08] MEDS: Cholecalciferol (Vit D3) 125 MCG CAPSULE (5,000 UNITS) 250 MCG PO (11:32)
[2022-12-08] MEDS: Senna/Docusate Sodium 1 Tablet PO ×2 (11:32→20:41)
[2022-12-08] MEDS: Lisinopril 20 MG Tablet PO (11:33)
[2022-12-08] MEDS: Menthol/Lanolin/Calamine/Znox 113 GM Tube 1 APPLIC TOPICAL ×2 (11:54→20:50)
[2022-12-08 12:14] LABS: Bedside Glucose 281 mg/dL (74-106)
--- NOTE | 2022-12-08 13:06 | WOUNDNOTE ---
wound photo: left posterior heel/Achilles
[2022-12-08 17:01] VITALS: BP 145/78; PULSE 100; RESP 16; TEMP 35.8; O2SAT 96
--- NOTE | 2022-12-08 17:11 | PCM.PN.HOSP ---
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 Objective Data Objective Data Vital Signs: Vital Signs Temp Pulse Resp BP Pulse Ox O2 Del Method O2 Flow Rate 96.5 F L 100 16 145/78 H 96 Room Air 2 12/08/22 17:01 12/08/22 17:01 12/08/22 17:01 12/08/22 17:01 12/08/22 17:01 12/08/22 17:01 12/04/22 20:15 Oxygen Flow Rate (L/min) 2 Oxygen Delivery Method Room Air Weight: 104.7 kg Body Mass Index (BMI) 39.6 Intake & Output: Intake and Output for Last 24 Hours 12/06/22 12/07/22 12/08/22 23:59 23:59 23:59 Intake Total 3354.58 / 3594.58 910 / 1330 1231.25 / 1231.25 Output Total 1500 / 2500 3500 / 4500 1000 / 1000 Balance 1854.58 / 1094.58 -2590 / -3170 231.25 / 231.25 Lab / Micro Data 12/07/22 05:44 12/07/22 05:44 Labs: Laboratory Results - last 24 hr 12/07/22 17:10: Vancomycin Trough 20.6 H 12/07/22 17:13: POC Glucose 229 H 12/07/22 21:44: POC Glucose 271 H 12/08/22 08:44: POC Glucose 307 H 12/08/22 11:25: POC Glucose 281 H Micro: Microbiology 12/03/22 14:02 Blood Culture (Wb) - Anticubital Left Blood Culture - Final No growth in 5 days. 12/03/22 14:20 Blood Culture (Wb) - Anticubital Right Blood Culture - Final No growth in 5 days. 12/04/22 Unknown Bone - Left Foot Gram Stain - Final 12/04/22 Unknown Bone - Left Foot Wound Culture - Final Staphylococcus capitis Streptococcus sanguinis 12/04/22 Unknown Bone - Left Foot Anaerobic Culture - Preliminary Checking for anaerobes, further studies to follow. 12/04/22 Unknown Wound - Left Foot Gram Stain - Final 12/04/22 Unknown Wound - Left Foot Wound Culture - Final Enterococcus faecalis Streptococcus sanguinis 12/04/22 Unknown Wound - Left Foot Anaerobic Culture - Preliminary Checking for anaerobes, further studies to follow. 12/04/22 Unknown Wound - Left Foot Gram Stain - Final 12/04/22 Unknown Wound - Left Foot Wound Culture - Final Streptococcus sanguinis Enterococcus faecalis 12/04/22 Unknown Wound - Left Foot Anaerobic Culture - Preliminary Checking for anaerobes, further studies to follow. 12/04/22 Unknown Wound - Heel, Left Gram Stain - Final 12/04/22 Unknown Wound - Heel, Left Wound Culture - Final Enterococcus faecalis 12/04/22 Unknown Wound - Heel, Left Anaerobic Culture - Preliminary Checking for anaerobes, further studies to follow. Physical Exam Narrative alert, oriented x3, no apparent distress, average body habitus and healthy appearing General Appearance: cooperative, well kempt and well developed Orientation / Consciousness: awake, oriented to person, oriented to place and oriented to time HEENT normocephalic, head/scalp atraumatic and moist oral mucous membranes Eyes PERRL, EOMs intact bilaterally and conjunctivae normal Neck supple, no JVD, thyroid normal and no carotid bruits General: trachea midline Resp normal respiratory effort, no retractions, no use of accessory muscles and clear to auscultation bilaterally Auscultation: Negative for rales, rhonchi or wheezes Cardio regular rate, regular rhythm, S1 normal heart sound, S2 normal heart sound, no murmurs, no rub and no gallops GI normal to inspection, nondistended, normoactive bowel sounds, soft to palpation, non-tender and non-distended Extremity Extremity Narrative: Patient's left lower extremity has a stabilizing brace on it Neuro oriented x3, CN's II-XII intact bilaterally, no focal motor deficits and no sensory deficits noted Sensorium / Orientation: awake and alert Speech: speech normal Psych affect normal Assessment & Plan Assessment/Plan (1) Osteomyelitis of foot, left, acute: (2) Spontaneous rupture of flexor tendons, left ankle and foot: PLAN: Plan 1. Osteomyelitis of the calcaneus-multi organisms, infectious diseases saw the patient today and recommends IV vancomycin for 6 weeks with a stop date of 01/15/2023, weekly labs will need to be monitored and patient will have ID follow-up in 2 to 3 weeks. #2 rupture of the Achilles tendon-complicates care, medical course, recovery, and prognosis, PT and OT are seeing patient, we are currently awaiting insurance approval for temporary placement in a nursing home facility. #3 type 2 diabetes-uncontrolled, blood sugars will be monitored , sliding scale insulin will be used, I will make adjustments on the patient's insulin. #4 essential hypertension-patient is currently on lisinopril for her blood pressure, I will make further adjustments based on her blood pressure readings. Total clinical time spent by myself addressing the patient's medical issues, reviewing all of her data, and collaborating with patient's care team: 35 minutes Charges/Coding Visit Charges Inpatient E&M: 40435 Subs Hosp L2
[2022-12-08] MEDS: Insulin Lispro 100 UNIT/ML INSULN.PEN 18 UNIT SC (17:24)
[2022-12-08 18:01] LABS: Bedside Glucose 228 mg/dL (74-106)
[2022-12-08 20:00] VITALS: BP 120/74; PULSE 99; RESP 12; TEMP 36.8; O2SAT 97
[2022-12-08] MEDS: Pravastatin 20 MG Tablet PO (20:42)
[2022-12-08] MEDS: MELATONIN 10 MG TABLET PO (20:42)
[2022-12-08] MEDS: Insulin Glargine-YFGN 100 UNIT/ML Pen 60 UNIT SC (20:48)
[2022-12-09 00:21] LABS: Bedside Glucose 221 mg/dL (74-106)
[2022-12-09 02:00] VITALS: BP 103/54; PULSE 96; RESP 18; TEMP 36.6; O2SAT 92
[2022-12-09] MEDS: oxyCODONE 5 MG Tablet PO ×5 (02:07→22:41)
[2022-12-09] MEDS: Acetaminophen 325 MG Tablet 650 MG PO ×3 (02:38→18:18)
[2022-12-09 05:34] LABS: Vancomycin, Trough Level 21.1 ug/mL (5.0-15.0)
--- NOTE | 2022-12-09 05:43 | PCM.RX.CS ---
Consult Labs Labs: Sodium 138 mmol/L (136-145) 12/07/22 05:44 Potassium 4.2 mmol/L (3.5-5.1) 12/07/22 05:44 Chloride 107 mmol/L (98-107) 12/07/22 05:44 Carbon Dioxide 26.0 mmol/L (21.0-32.0) 12/07/22 05:44 Anion Gap 5 (5-15) 12/07/22 05:44 BUN 38 mg/dL (7-18) H 12/07/22 05:44 Creatinine 0.76 mg/dL (0.55-1.02) 12/07/22 05:44 Est GFR (MDRD) Af Amer 100 mL/min (>60) 12/07/22 05:44 Est GFR (MDRD) Non-Af 83 mL/min (>60) 12/07/22 05:44 BUN/Creatinine Ratio 50.3 RATIO (10-20) H 12/07/22 05:44 Glucose 206 mg/dL (74-106) H 12/07/22 05:44 Vancomycin Trough 21.1 ug/mL (5.0-15.0) H 12/09/22 04:58 Random Vancomycin 14.0 ug/mL (0.0-15.0) 12/06/22 16:30 Microbiology Microbiology: Microbiology 12/03/22 14:02 Blood Culture (Wb) - Anticubital Left Blood Culture - Final No growth in 5 days. 12/03/22 14:20 Blood Culture (Wb) - Anticubital Right Blood Culture - Final No growth in 5 days. 12/04/22 Unknown Bone - Left Foot Gram Stain - Final 12/04/22 Unknown Bone - Left Foot Wound Culture - Final Staphylococcus capitis Streptococcus sanguinis 12/04/22 Unknown Bone - Left Foot Anaerobic Culture - Preliminary Checking for anaerobes, further studies to follow. 12/04/22 Unknown Wound - Left Foot Gram Stain - Final 12/04/22 Unknown Wound - Left Foot Wound Culture - Final Enterococcus faecalis Streptococcus sanguinis 12/04/22 Unknown Wound - Left Foot Anaerobic Culture - Preliminary Checking for anaerobes, further studies to follow. 12/04/22 Unknown Wound - Left Foot Gram Stain - Final 12/04/22 Unknown Wound - Left Foot Wound Culture - Final Streptococcus sanguinis Enterococcus faecalis 12/04/22 Unknown Wound - Left Foot Anaerobic Culture - Preliminary Checking for anaerobes, further studies to follow. 12/04/22 Unknown Wound - Heel, Left Gram Stain - Final 12/04/22 Unknown Wound - Heel, Left Wound Culture - Final Enterococcus faecalis 12/04/22 Unknown Wound - Heel, Left Anaerobic Culture - Preliminary Checking for anaerobes, further studies to follow. Pharmacy Plan for Drug Dosing Pharmacy Plan for Drug Dosing: Pharmacy Service will continue to monitor and adjust dosing as required. TROUGH 21.1 @ 11 HRS. HOLD DOSE AND DRAW RANDOM LEVEL IN 6 HOUSA Date/Time Labs Ordered Labs to be done on [date and time ordered]: 12/09 @ 1200 RANDOM
[2022-12-09] MEDS: Insulin Lispro 100 UNIT/ML INSULN.PEN 18 UNIT SC ×2 (06:04→11:00)
[2022-12-09] MEDS: Insulin Lispro 100 UNIT/ML INSULN.PEN SC ×3 (06:05→20:45)
[2022-12-09] MEDS: Nystatin Powder 15gm Bottle 1 APPLIC TOPICAL ×3 (06:06→20:42)
[2022-12-09] MEDS: Ondansetron 4 MG/2 ML Vial IV (06:25)
[2022-12-09 06:49] LABS: Bedside Glucose 151 mg/dL (74-106)
[2022-12-09 07:04] VITALS: O2SAT 94
[2022-12-09 08:00] VITALS: BP 101/70; PULSE 93; RESP 18; TEMP 36.7; O2SAT 97
[2022-12-09 08:08] VITALS: O2SAT 97
[2022-12-09] MEDS: Lisinopril 20 MG Tablet PO (08:11)
[2022-12-09] MEDS: Cholecalciferol (Vit D3) 125 MCG CAPSULE (5,000 UNITS) 250 MCG PO (08:12)
[2022-12-09] MEDS: Enoxaparin 40 MG/0.4 ML Syringe SC (08:12)
[2022-12-09] MEDS: Polyethylene Glycol 3350 17 GM PACKET 8.5 GM PO (08:12)
[2022-12-09] MEDS: Juven (unflavored) Packet 1 PACKET PO (08:13)
[2022-12-09] MEDS: Senna/Docusate Sodium 1 Tablet PO ×2 (08:13→20:43)
[2022-12-09] MEDS: Multivitamins,Ther W-Minerals Tablet 1 TABLET PO (08:13)
[2022-12-09] MEDS: Menthol/Lanolin/Calamine/Znox 113 GM Tube 1 APPLIC TOPICAL ×2 (08:14→20:41)
--- NOTE | 2022-12-09 10:17 | WOUNDNOTE ---
Wound VAC dressing intact to the left posterior heel/Achilles. Good seal noted at 125mmHg low continuous suction. no drainage noted in the canister. patient denies needs at this time. will monitor.
[2022-12-09 13:10] LABS: Vancomycin, Random Level 16.4 ug/mL (0.0-15.0)
[2022-12-09 14:44] LABS: Creatinine, Serum 0.71 mg/dL (0.55-1.02); EST Glomerular Filtration Rate 89 mL/min (>60); Est Glom Filt Rate - Afr Amer 108 mL/min (>60); Estimated Creatinine Clearance 71.85 ml/min
--- NOTE | 2022-12-09 14:52 | PCM.RX.CS ---
Consult Antibiotic Management Pharmacy has been consulted to manage selected antiobiotic: Vancomycin Type of Intervention Type of Consult: Follow-up Suspected Infection Suspected Infection: Osteomyelitis Prior Doses of Antibiotics Prior Doses of Antibiotics Received/Current Regimen: dose is currently being held due to a high trough but the most recent dose was vanc 1000mg IV q12h Labs Labs: Sodium 138 mmol/L (136-145) 12/07/22 05:44 Potassium 4.2 mmol/L (3.5-5.1) 12/07/22 05:44 Chloride 107 mmol/L (98-107) 12/07/22 05:44 Carbon Dioxide 26.0 mmol/L (21.0-32.0) 12/07/22 05:44 Anion Gap 5 (5-15) 12/07/22 05:44 BUN 38 mg/dL (7-18) H 12/07/22 05:44 Creatinine 0.71 mg/dL (0.55-1.02) 12/09/22 14:07 Est GFR (MDRD) Af Amer 108 mL/min (>60) 12/09/22 14:07 Est GFR (MDRD) Non-Af 89 mL/min (>60) 12/09/22 14:07 BUN/Creatinine Ratio 50.3 RATIO (10-20) H 12/07/22 05:44 Glucose 206 mg/dL (74-106) H 12/07/22 05:44 Vancomycin Trough 21.1 ug/mL (5.0-15.0) H 12/09/22 04:58 Random Vancomycin 16.4 ug/mL (0.0-15.0) H 12/09/22 12:20 Microbiology Microbiology: Microbiology 12/04/22 Unknown Wound - Heel, Left Gram Stain - Final 12/04/22 Unknown Wound - Heel, Left Wound Culture - Final Enterococcus faecalis 12/04/22 Unknown Wound - Heel, Left Anaerobic Culture - Final Anaerobic cocci 12/04/22 Unknown Bone - Left Foot Gram Stain - Final 12/04/22 Unknown Bone - Left Foot Wound Culture - Final Staphylococcus capitis Streptococcus sanguinis 12/04/22 Unknown Bone - Left Foot Anaerobic Culture - Final Anaerobic cocci 12/04/22 Unknown Wound - Left Foot Gram Stain - Final 12/04/22 Unknown Wound - Left Foot Wound Culture - Final Enterococcus faecalis Streptococcus sanguinis 12/04/22 Unknown Wound - Left Foot Anaerobic Culture - Preliminary Checking for anaerobes, further studies to follow. 12/04/22 Unknown Wound - Left Foot Gram Stain - Final 12/04/22 Unknown Wound - Left Foot Wound Culture - Final Streptococcus sanguinis Enterococcus faecalis 12/04/22 Unknown Wound - Left Foot Anaerobic Culture - Preliminary Anaerobic cocci 12/03/22 14:02 Blood Culture (Wb) - Anticubital Left Blood Culture - Final Param figueroaa 12/03/22 14:20 Blood Culture (Wb) - Anticubital Right Blood Culture - Final No growth in 5 days. Dosing Weight Weight used for dosin.7 kg Estimated Creatinine Clearance Estimated Creatinine Clearance: 98 ml/min Goal Trough Goal Trough: 15-20 mcg/mL Pharmacy Plan for Drug Dosing Pharmacy Plan for Drug Dosing: The vanc random level drawn at 12:20 today was 16.4 (drawn approximately 19 hours after the last 1000mg dose). This is back below 20 so can resume dosing. Will restart at a dose of 1500mg IV q24h since q12h dosing has resulted in a few high troughs the last few days. Will check a trough before the 3rd dose. The patient's CrCl of 98 ml/min was calculated using an adjusted body weight. Pharmacy Service will continue to monitor and adjust dosing as required. Follow-Up Labs Follow-Up Labs: Trough: Vancomycin Date/Time Labs Ordered Labs to be done on [date and time ordered]: 12/11/22 15:30
[2022-12-09 15:00] VITALS: BP 110/60; PULSE 91; RESP 18; TEMP 36.8; O2SAT 97
--- NOTE | 2022-12-09 16:28 | CASEMGMT ---
Patient was approved to go to [facility]. SW completed a PASRR in [facility] system. SW notified physician. Plan: d/c to [facility] under skilled level of care on a PASRR. Physicians will transport patient. Ana MUNROE
--- NOTE | 2022-12-09 16:45 | CASEMGMT ---
SW went to patient's room to let her know she was approved for [facility]. Patient said she was going to change her mind and ask SW to check into [facility]. SW told patient that SW cannot change as she is medically ready and her insurance has approved her. Patient's said that is bull. SW explained [facility] was the choice SW was given by patient. Patient's said patient change her mind and no one has come back in her room until now. SW asked if they asked for SW and they said the did. SW explained SW was never informed they wanted to speak with SW. SW explained SW was just in patient's room yesterday and went over d/c and [facility] was the choice given to SW. SW told them if patient gets to [facility] and is unhappy to notify [facility] and they can try and get her to another facility. Patient's repeatedly said this is bull and patient is not going anywhere today and he does not care what anyone says. DOMINIQUE notified hemodialysis charge nurse and she notified physician. Ana Maxwell STORM SASH MAKER SHANEKA
--- NOTE | 2022-12-09 16:46 | PCM.PN.HOSP ---
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 (12/03/22) Non-pressure chronic ulcer of other part of unspecified foot with unspecified severity (12/03/22) Abscess of tendon sheath, left ankle and foot (12/03/22) Spontaneous rupture of flexor tendons, left ankle and foot (12/03/22) Other acute osteomyelitis, left ankle and foot (12/03/22) Subjective Subjective Patient was seen and examined today, she was accepted at [facility], when the patient was told that a bed was available for her to go there, she refused to be discharged to the facility instead asking to go to the [facility] in [place] if possible. At this point in time, patient is stable to go to an extended care facility, it is up to her to be comfortable with the facility, at this time I do not believe it is my place to tell her to go to a facility that she does not want to be transferred to. Objective Data Objective Data Vital Signs: Vital Signs Temp Pulse Resp BP Pulse Ox O2 Del Method O2 Flow Rate 98.0 F 93 18 101/70 97 Room Air 2 12/09/22 08:00 12/09/22 08:00 12/09/22 08:00 12/09/22 08:00 12/09/22 08:08 12/09/22 10:00 12/04/22 20:15 Oxygen Flow Rate (L/min) 2 Oxygen Delivery Method Room Air Weight: 104.7 kg Body Mass Index (BMI) 39.6 Intake & Output: Intake and Output for Last 24 Hours 12/07/22 12/08/22 12/09/22 23:59 23:59 23:59 Intake Total 910 / 1330 1671.25 / 1671.25 240 / 240 Output Total 3500 / 4500 2800 / 3200 600 / 600 Balance -2590 / -3170 -1128.75 / -1528.75 -360 / -360 Lab / Micro Data 12/07/22 05:44 12/09/22 14:07 Labs: Laboratory Results - last 24 hr 12/08/22 17:15: POC Glucose 228 H 12/08/22 20:46: POC Glucose 221 H 12/09/22 04:58: Vancomycin Trough 21.1 H 12/09/22 06:02: POC Glucose 151 H 12/09/22 12:20: Random Vancomycin 16.4 H 12/09/22 14:07: Creatinine 0.71, Estim Creat Clear Calc 71.85, Est GFR (MDRD) Af Amer 108, Est GFR (MDRD) Non-Af 89 Micro: Microbiology 12/04/22 Unknown Wound - Heel, Left Gram Stain - Final 12/04/22 Unknown Wound - Heel, Left Wound Culture - Final Enterococcus faecalis 12/04/22 Unknown Wound - Heel, Left Anaerobic Culture - Final Anaerobic cocci 12/04/22 Unknown Bone - Left Foot Gram Stain - Final 12/04/22 Unknown Bone - Left Foot Wound Culture - Final Staphylococcus capitis Streptococcus sanguinis 12/04/22 Unknown Bone - Left Foot Anaerobic Culture - Final Anaerobic cocci 12/04/22 Unknown Wound - Left Foot Gram Stain - Final 12/04/22 Unknown Wound - Left Foot Wound Culture - Final Enterococcus faecalis Streptococcus sanguinis 12/04/22 Unknown Wound - Left Foot Anaerobic Culture - Preliminary Checking for anaerobes, further studies to follow. 12/04/22 Unknown Wound - Left Foot Gram Stain - Final 12/04/22 Unknown Wound - Left Foot Wound Culture - Final Streptococcus sanguinis Enterococcus faecalis 12/04/22 Unknown Wound - Left Foot Anaerobic Culture - Preliminary Anaerobic cocci 12/03/22 14:02 Blood Culture (Wb) - Anticubital Left Blood Culture - Final Fingoldia magna 12/03/22 14:20 Blood Culture (Wb) - Anticubital Right Blood Culture - Final No growth in 5 days. Physical Exam Narrative alert, oriented x3, no apparent distress, average body habitus and healthy appearing General Appearance: cooperative, well kempt and well developed Orientation / Consciousness: awake, oriented to person, oriented to place and oriented to time HEENT normocephalic, head/scalp atraumatic and moist oral mucous membranes Eyes PERRL, EOMs intact bilaterally and conjunctivae normal Neck supple, no JVD, thyroid normal and no carotid bruits General: trachea midline Resp normal respiratory effort, no retractions, no use of accessory muscles and clear to auscultation bilaterally Auscultation: Negative for rales, rhonchi or wheezes Cardio regular rate, regular rhythm, S1 normal heart sound, S2 normal heart sound, no murmurs, no rub and no gallops GI normal to inspection, nondistended, normoactive bowel sounds, soft to palpation, non-tender and non-distended Extremity Extremity Narrative: Patient's left lower extremity has a stabilizing brace on it Neuro oriented x3, CN's II-XII intact bilaterally, no focal motor deficits and no sensory deficits noted Sensorium / Orientation: awake and alert Speech: speech normal Psych affect normal Assessment & Plan Assessment/Plan (1) Osteomyelitis of foot, left, acute: (2) Spontaneous rupture of flexor tendons, left ankle and foot: PLAN: Plan 1. Osteomyelitis of the calcaneus-multi organisms, infectious diseases saw the patient today and recommends IV vancomycin for 6 weeks with a stop date of 01/15/2023, weekly labs will need to be monitored and patient will have ID follow-up in 2 to 3 weeks. #2 rupture of the Achilles tendon-complicates care, medical course, recovery, and prognosis, PT and OT are seeing patient, we are currently awaiting insurance approval for temporary placement in a care home facility. #3 type 2 diabetes-uncontrolled, blood sugars will be monitored , sliding scale insulin will be used, I will make adjustments on the patient's insulin. #4 essential hypertension-patient is currently on lisinopril for her blood pressure, I will make further adjustments based on her blood pressure readings. Again, [facility] was available for the patient to be discharged to at this time, she has unfortunately refused to go there, arrangements will have to be made for her to go to another facility. Total clinical time spent by myself addressing the patient's medical issues, reviewing all of her data, and collaborating with patient's care team: 25 minutes Charges/Coding Visit Charges Inpatient E&M: 39855 Subs Hosp L1
--- NOTE | 2022-12-09 16:59 | NURSING ---
Upset regarding information that she may be discharged to [facility] today. States I do not want to go there, I have changed my mind. I want to check out the [facility]. Dr. Huizar notified of patient not wanting to be discharged to [facility]. Needs to be addressed in AM.
[2022-12-09 17:16] LABS: Bedside Glucose 167 mg/dL (74-106)
[2022-12-09 17:36] LABS: Bedside Glucose 110 mg/dL (74-106)
[2022-12-09] MEDS: Pravastatin 20 MG Tablet PO (20:43)
[2022-12-09] MEDS: Insulin Glargine-YFGN 100 UNIT/ML Pen 60 UNIT SC (20:43)
[2022-12-09] MEDS: MELATONIN 10 MG TABLET PO (20:47)
[2022-12-09 20:50] LABS: Bedside Glucose 237 mg/dL (74-106)
[2022-12-09 21:00] VITALS: BP 138/70; PULSE 109; RESP 16; TEMP 36.9; O2SAT 93
[2022-12-10 03:00] VITALS: BP 115/75; PULSE 97; RESP 16; TEMP 36.7; O2SAT 93
[2022-12-10] MEDS: Acetaminophen 325 MG Tablet 650 MG PO ×3 (05:13→21:07)
[2022-12-10] MEDS: oxyCODONE 5 MG Tablet PO ×3 (05:14→21:08)
[2022-12-10] MEDS: Ondansetron 4 MG/2 ML Vial IV (05:14)
[2022-12-10] MEDS: Nystatin Powder 15gm Bottle 1 APPLIC TOPICAL ×3 (05:16→20:57)
[2022-12-10 06:07] LABS: Bedside Glucose 156 mg/dL (74-106)
[2022-12-10 09:00] VITALS: BP 133/79; PULSE 98; RESP 18; TEMP 36.8; O2SAT 97
[2022-12-10] MEDS: Insulin Lispro 100 UNIT/ML INSULN.PEN SC ×3 (09:07→16:26)
[2022-12-10] MEDS: Insulin Lispro 100 UNIT/ML INSULN.PEN 18 UNIT SC ×3 (09:07→16:27)
[2022-12-10] MEDS: Multivitamins,Ther W-Minerals Tablet 1 TABLET PO (09:08)
[2022-12-10] MEDS: Menthol/Lanolin/Calamine/Znox 113 GM Tube 1 APPLIC TOPICAL ×2 (09:08→20:58)
[2022-12-10] MEDS: Enoxaparin 40 MG/0.4 ML Syringe SC (09:09)
[2022-12-10] MEDS: Juven (unflavored) Packet 1 PACKET PO (09:09)
[2022-12-10] MEDS: Polyethylene Glycol 3350 17 GM PACKET 8.5 GM PO (09:10)
[2022-12-10] MEDS: Cholecalciferol (Vit D3) 125 MCG CAPSULE (5,000 UNITS) 250 MCG PO (09:10)
[2022-12-10] MEDS: Senna/Docusate Sodium 1 Tablet PO ×2 (09:10→23:15)
[2022-12-10] MEDS: Lisinopril 20 MG Tablet PO (09:10)
--- NOTE | 2022-12-10 09:47 | CASEMGMT ---
Discharge Planning Referral sent to [facility] via [facility]. Tamica Rivas, Discharge Planning Asst.
--- NOTE | 2022-12-10 11:49 | CASEMGMT ---
Discharge Planning Patient has been accepted by [facility]. Requested that pre-cert be started. Notified [facility] via [facility] to cancel auth. SW updated. Tamica Rivas, Discharge Planning Asst.
[2022-12-10 12:04] LABS: Bedside Glucose 228 mg/dL (74-106)
--- NOTE | 2022-12-10 12:46 | PCM.PN.HOSP ---
Subjective Subjective Doing well, no issues overnight. She still here because she changed her mind at [facility] know if to start pre-CERT for different retirement Objective Data Objective Data Vital Signs: Vital Signs Temp Pulse Resp BP Pulse Ox O2 Del Method O2 Flow Rate 98.2 F 98 18 133/79 H 97 Room Air 2 12/10/22 09:00 12/10/22 09:00 12/10/22 09:00 12/10/22 09:00 12/10/22 09:00 12/10/22 09:00 12/04/22 20:15 Oxygen Flow Rate (L/min) 2 Oxygen Delivery Method Room Air Weight: 230 lb 13.184 oz Body Mass Index (BMI) 39.6 Intake & Output: Intake and Output for Last 24 Hours 12/09/22 12/10/22 12/11/22 03:59 03:59 03:59 Intake Total 1251.25 / 1251.25 1750 / 1750 Output Total 2200 / 2200 200 / 200 Balance -948.75 / -948.75 1550 / 1550 Lab / Micro Data 12/07/22 05:44 12/09/22 14:07 Labs: Laboratory Results - last 24 hr 12/09/22 10:58: POC Glucose 167 H 12/09/22 12:20: Random Vancomycin 16.4 H 12/09/22 14:07: Creatinine 0.71, Estim Creat Clear Calc 71.85, Est GFR (MDRD) Af Amer 108, Est GFR (MDRD) Non-Af 89 12/09/22 16:55: POC Glucose 110 H 12/09/22 20:30: POC Glucose 237 H 12/10/22 05:49: POC Glucose 156 H 12/10/22 11:42: POC Glucose 228 H Micro: Microbiology 12/04/22 Unknown Wound - Left Foot Gram Stain - Final 12/04/22 Unknown Wound - Left Foot Wound Culture - Final Streptococcus sanguinis Enterococcus faecalis 12/04/22 Unknown Wound - Left Foot Anaerobic Culture - Final Anaerobic cocci Prevotella bivia 12/04/22 Unknown Wound - Left Foot Gram Stain - Final 12/04/22 Unknown Wound - Left Foot Wound Culture - Final Enterococcus faecalis Streptococcus sanguinis 12/04/22 Unknown Wound - Left Foot Anaerobic Culture - Final Anaerobic cocci Prevotella bivia 12/04/22 Unknown Wound - Heel, Left Gram Stain - Final 12/04/22 Unknown Wound - Heel, Left Wound Culture - Final Enterococcus faecalis 12/04/22 Unknown Wound - Heel, Left Anaerobic Culture - Final Anaerobic cocci 12/04/22 Unknown Bone - Left Foot Gram Stain - Final 12/04/22 Unknown Bone - Left Foot Wound Culture - Final Staphylococcus capitis Streptococcus sanguinis 12/04/22 Unknown Bone - Left Foot Anaerobic Culture - Final Anaerobic cocci 12/03/22 14:02 Blood Culture (Wb) - Anticubital Left Blood Culture - Final Param figueroaa 12/03/22 14:20 Blood Culture (Wb) - Anticubital Right Blood Culture - Final No growth in 5 days. Physical Exam Narrative General: Alert, Oriented x3, Cooperative, No apparent distress HEENT: Atraumatic, PERRLA, EOMI, Normocephalic Oral: Moist Mucosa Neck: Supple, No JVD Lungs: Clear to auscultation, Normal air movement, No rhonchi, No wheeze, No rales Cardiovascular: Regular rate, Regular Rhythm, Normal S1, Normal S2, No murmurs Abdomen: Soft, Non Tender, Non-Distended, No Hepato-splenomegaly Extremities: No edema, Capillary Refill Less than 3 Seconds, Ex-Fix in place and wrapped on her left lower extremity Skin: No rashes, No breakdown Musculoskeletal: No Tenderness to Palpation of Joints or Extremities Neurological: Motor Exam 5/5 strength throughout, Sensory exam intact to light touch and pain Psych/Mental Status: Normal Affect, Appropriate Assessment & Plan Assessment/Plan (1) Osteomyelitis of foot, left, acute: (2) Spontaneous rupture of flexor tendons, left ankle and foot: PLAN: Plan 1. Osteomyelitis of the calcaneus/rupture of Achilles tendon ? Multi organisms, infectious diseases saw the patient today and recommends IV vancomycin for 6 weeks with a stop date of 01/15/2023, weekly labs will need to be monitored and patient will have ID follow-up in 2 to 3 weeks. ? PT/OT plan for discharge to [facility] home when able since she refused to go to [facility] which she had selected on Wednesday 2. HTN/HLD ? Blood pressure are stable ? Continue with her home blood pressure medication 3. DM2 ? Blood sugar is uncontrolled ? Sliding scale insulin ? X ACH chest ? Will monitor and make once as necessary DVT: Lovenox Charges/Coding Visit Charges Inpatient E&M: 85281 Subs Hosp L2
--- NOTE | 2022-12-10 13:19 | CASEMGMT ---
Discharge Planning Spoke with both patient and her to update them that [facility] had accepted. Explained that [facility] would need to cancel auth and that [facility] will need to obtain a new one. Both voiced understanding. Tamica Rivas, Discharge Planning Asst.
--- NOTE | 2022-12-10 14:56 | WOUNDNOTE ---
Wound VAC dressing in place to the left Achilles/posterior heel. good seal noted at 125mmHg low continuous suction. cleaned pin sites with 50/50 peroxide/NS solution. applied new split gauze around pin sites. padded the heel well with ABD pads and wrapped with kerlix. pt will most likely be approved for long-term tomorrow. wound VAC will need to be removed prior to discharge. Vac will be reapplied at the long-term. pt tolerated well and denies further needs at this time. present at bedside.
[2022-12-10 15:00] VITALS: BP 128/70; PULSE 95; RESP 18; TEMP 36.7; O2SAT 96
[2022-12-10 16:58] LABS: Bedside Glucose 223 mg/dL (74-106)
[2022-12-10] MEDS: Pravastatin 20 MG Tablet PO (20:59)
[2022-12-10] MEDS: MELATONIN 10 MG TABLET PO ×2 (20:59)
[2022-12-10 21:00] VITALS: BP 142/72; PULSE 103; RESP 16; TEMP 36.6; O2SAT 96
[2022-12-10] MEDS: Insulin Glargine-YFGN 100 UNIT/ML Pen 60 UNIT SC (21:00)
[2022-12-11 03:29] VITALS: BP 129/71; PULSE 92; RESP 16; TEMP 36.7; O2SAT 95
[2022-12-11] MEDS: Nystatin Powder 15gm Bottle 1 APPLIC TOPICAL ×2 (05:59→13:28)
[2022-12-11] MEDS: Acetaminophen 325 MG Tablet 650 MG PO (05:59)
[2022-12-11 06:13] LABS: Bedside Glucose 93 mg/dL (74-106)
[2022-12-11 06:27] LABS: Absolute Lymphocyte Count 4.13 X10^3/uL (0.83-4.51); Absolute Neutrophil Count 6.1 X10^3/uL (2.0-7.7); Basophil# 0.06 X10^3/uL; Basophil% 0.5 % (0-1); Eosinophil# 0.42 X10^3/uL; Eosinophils% 3.6 % (0-5); Hematocrit 37.4 % (37-47); Hemoglobin 12.1 g/dL (12.0-15.0); Lymphocyte # 4.13 X10^3/ul (0.83-4.51); Lymphocyte % 35.6 % (19-41); Mean Corp Hgb Conc 32.4 g/dL (32-36); Mean Corpuscular Hgb 31.6 pg (27.0-32.0); Mean Corpuscular Volume 97.7 fL (81-99); Mean Platelet Vol. 9.5 fl (6.2-12.0); Monocyte# 0.86 X10^3/uL; Monocyte% 7.4 % (0-10); NRBC Flagged by Analyzer 0 % (0-5); Neutrophil # 6.08 X10^3/uL (2.7-7.7); Neutrophil % 52.5 % (47-70); Platelet Count 570 K/mm3 (150-450); RBC Distribution Width CV 14.1 % (11.6-14.6); RBC Distribution Width SD 50.4 fl (35.1-43.9); Red Blood Count 3.83 M/mm3 (4.2-5.4); White Blood Count 11.6 K/mm3 (4.4-11.0)
[2022-12-11 06:59] LABS: Anion Gap 5 (5-15); BUN 13 mg/dL (7-18); BUN/Creat Ratio 17.8 RATIO (10-20); Calcium,Total 9.1 mg/dL (8.5-10.1); Chloride 109 mmol/L (98-107); Creatinine, Serum 0.73 mg/dL (0.55-1.02); EST Glomerular Filtration Rate 86 mL/min (>60); Est Glom Filt Rate - Afr Amer 104 mL/min (>60); Estimated Creatinine Clearance 69.88 ml/min; Glucose 103 mg/dL (74-106); Potassium 3.5 mmol/L (3.5-5.1); Sodium Level 141 mmol/L (136-145)
[2022-12-11 08:51] VITALS: BP 136/79; PULSE 99; RESP 17; TEMP 37.1; O2SAT 99
[2022-12-11] MEDS: Lisinopril 20 MG Tablet PO (08:57)
[2022-12-11] MEDS: Cholecalciferol (Vit D3) 125 MCG CAPSULE (5,000 UNITS) 250 MCG PO (08:57)
[2022-12-11] MEDS: Multivitamins,Ther W-Minerals Tablet 1 TABLET PO (08:57)
[2022-12-11] MEDS: oxyCODONE 5 MG Tablet PO ×2 (08:58→13:28)
[2022-12-11] MEDS: Senna/Docusate Sodium 1 Tablet PO (08:59)
[2022-12-11] MEDS: Polyethylene Glycol 3350 17 GM PACKET 8.5 GM PO (09:00)
[2022-12-11] MEDS: 0.9% Saline Lock 10 ML Syringe IV ×2 (09:01→13:30)
[2022-12-11] MEDS: Enoxaparin 40 MG/0.4 ML Syringe SC (09:01)
[2022-12-11] MEDS: Menthol/Lanolin/Calamine/Znox 113 GM Tube 1 APPLIC TOPICAL (09:05)
--- NOTE | 2022-12-11 10:46 | PCM.PN.HOSP ---
Subjective Subjective Awaiting pre-CERT doing well. No issues overnight Objective Data Objective Data Vital Signs: Vital Signs Temp Pulse Resp BP Pulse Ox O2 Del Method O2 Flow Rate 98.7 F 99 17 136/79 H 99 Room Air 2 12/11/22 08:51 12/11/22 08:51 12/11/22 08:51 12/11/22 08:51 12/11/22 08:51 12/11/22 08:51 12/04/22 20:15 Oxygen Flow Rate (L/min) 2 Oxygen Delivery Method Room Air Weight: 230 lb 13.184 oz Body Mass Index (BMI) 39.6 Intake & Output: Intake and Output for Last 24 Hours 12/10/22 12/11/22 12/12/22 03:59 03:59 03:59 Intake Total 1750 / 1750 530 / 530 476.5 / 476.5 Output Total 200 / 200 Balance 1550 / 1550 530 / 530 476.5 / 476.5 Lab / Micro Data 12/11/22 06:10 12/11/22 06:10 Labs: Laboratory Results - last 24 hr 12/10/22 11:42: POC Glucose 228 H 12/10/22 16:24: POC Glucose 223 H 12/11/22 05:53: POC Glucose 93 12/11/22 06:10: WBC 11.6 H, RBC 3.83 L, Hgb 12.1, Hct 37.4, MCV 97.7, MCH 31.6, MCHC 32.4, RDW Std Deviation 50.4 H, RDW Coeff of Yessi 14.1, Plt Count 570 H, MPV 9.5, Immature Gran % (Auto) 0.400, Neut % (Auto) 52.5, Lymph % (Auto) 35.6, Dade % (Auto) 7.4, Eos % (Auto) 3.6, Baso % (Auto) 0.5, Absolute Neuts (auto) 6.1, Absolute Lymphs (auto) 4.13, Nucleated RBC % 0, Sodium 141, Potassium 3.5, Chloride 109 H, Carbon Dioxide 27.0, Anion Gap 5, BUN 13, Creatinine 0.73, Estim Creat Clear Calc 69.88, Est GFR (MDRD) Af Amer 104, Est GFR (MDRD) Non-Af 86, BUN/Creatinine Ratio 17.8, Glucose 103, Calcium 9.1 Micro: Microbiology 12/04/22 Unknown Wound - Left Foot Gram Stain - Final 12/04/22 Unknown Wound - Left Foot Wound Culture - Final Streptococcus sanguinis Enterococcus faecalis 12/04/22 Unknown Wound - Left Foot Anaerobic Culture - Final Anaerobic cocci Prevotella bivia 12/04/22 Unknown Wound - Left Foot Gram Stain - Final 12/04/22 Unknown Wound - Left Foot Wound Culture - Final Enterococcus faecalis Streptococcus sanguinis 12/04/22 Unknown Wound - Left Foot Anaerobic Culture - Final Anaerobic cocci Prevotella bivia 12/04/22 Unknown Wound - Heel, Left Gram Stain - Final 12/04/22 Unknown Wound - Heel, Left Wound Culture - Final Enterococcus faecalis 12/04/22 Unknown Wound - Heel, Left Anaerobic Culture - Final Anaerobic cocci 12/04/22 Unknown Bone - Left Foot Gram Stain - Final 12/04/22 Unknown Bone - Left Foot Wound Culture - Final Staphylococcus capitis Streptococcus sanguinis 12/04/22 Unknown Bone - Left Foot Anaerobic Culture - Final Anaerobic cocci 12/03/22 14:02 Blood Culture (Wb) - Anticubital Left Blood Culture - Final Fingoldia magna 12/03/22 14:20 Blood Culture (Wb) - Anticubital Right Blood Culture - Final No growth in 5 days. Physical Exam Narrative General: Alert, Oriented x3, Cooperative, No apparent distress HEENT: Atraumatic, PERRLA, EOMI, Normocephalic Oral: Moist Mucosa Neck: Supple, No JVD Lungs: Clear to auscultation, Normal air movement, No rhonchi, No wheeze, No rales Cardiovascular: Regular rate, Regular Rhythm, Normal S1, Normal S2, No murmurs Abdomen: Soft, Non Tender, Non-Distended, No Hepato-splenomegaly Extremities: No edema, Capillary Refill Less than 3 Seconds, Ex-Fix in place and wrapped on her left lower extremity Skin: No rashes, No breakdown Musculoskeletal: No Tenderness to Palpation of Joints or Extremities Neurological: Motor Exam 5/5 strength throughout, Sensory exam intact to light touch and pain Psych/Mental Status: Normal Affect, Appropriate Assessment & Plan Assessment/Plan (1) Osteomyelitis of foot, left, acute: (2) Spontaneous rupture of flexor tendons, left ankle and foot: PLAN: Plan 1. Osteomyelitis of the calcaneus/rupture of Achilles tendon ? Multi organisms, infectious diseases saw the patient today and recommends IV vancomycin for 6 weeks with a stop date of 01/15/2023, weekly labs will need to be monitored and patient will have ID follow-up in 2 to 3 weeks. ? PT/OT plan for discharge to [facility] home when able since she refused to go to [facility] which she had selected on Wednesday 2. HTN/HLD ? Blood pressure are stable ? Continue with her home blood pressure medication 3. DM2 ? Blood sugar is uncontrolled ? Sliding scale insulin ? X ACH chest ? Will monitor and make adjustments as necessary DVT: Lovenox Charges/Coding Visit Charges Inpatient E&M: 81312 Subs Hosp L2
--- NOTE | 2022-12-11 12:10 | PCM.TXEXTCAR ---
Diet Diet Order/Speech Therapy: 12/04/22 15:30 Diet: Carbohydrate Controlled Is pt able to select menu?: Yes Routine Orders/Code Status Routine Lab Work: CBC and BMP Code Status: Full Code Wound(s) posterior ankle: Wound Type: open wound left posterior ankle/Achilles: Wound Type: Surgical Incision Dressing Change: applied KCI wound VAC LEFT ANKLE: Wound Type: Surgical Incision Therapies Weight Bearing: Non weight bearing Extremity Affected:: Left Lower Physical Therapy: Eval and Treat Occupational Therapy: Eval and Treat Problem/Diagnosis (1) Osteomyelitis of foot, left, acute: Status: Acute Code(s): M86.172 - Other acute osteomyelitis, left ankle and foot (2) Spontaneous rupture of flexor tendons, left ankle and foot: Status: Acute Code(s): M66.372 - Spontaneous rupture of flexor tendons, left ankle and foot Plan 1. Osteomyelitis of the calcaneus/rupture of Achilles tendon ? Multi organisms, infectious diseases saw the patient today and recommends IV vancomycin for 6 weeks with a stop date of 01/15/2023, weekly labs will need to be monitored and patient will have ID follow-up in 2 to 3 weeks. ? PT/OT plan for discharge to [facility] when able since she refused to go to [facility] which she had selected on Wednesday 2. HTN/HLD ? Blood pressure are stable ? Continue with her home blood pressure medication 3. DM2 ? Blood sugar is uncontrolled ? Sliding scale insulin ? X ACH chest ? Will monitor and make adjustments as necessary DVT: Lovenox Allergies/Procedures Done in Hospital Allergies amoxicillin trihydrate [From Augmentin] Allergy (Verified 12/03/22 15:22) Rash diflunisal [From Dolobid] Allergy (Verified 12/03/22 15:22) Rash moxifloxacin HCl [From Avelox] Allergy (Verified 12/03/22 15:22) Rash potassium clavulanate [From Augmentin] Allergy (Verified 12/03/22 15:22) Rash sulfamethoxazole [From Bactrim] Allergy (Verified 12/03/22 15:22) Rash trimethoprim [From Bactrim] Allergy (Verified 12/03/22 15:22) Rash Procedures: None Type of Care/Length of Stay Estimated LOS: Convalescent Care Less Than 30 days Type of Care Needed: Skilled Rehab Potential: Good Prognosis: Good Additional Orders/Day of Discharge Day of Discharge: 12/11/22 Dietary and Speech Recommendations Dietitian Recommendations/Changes: Continue CCD diet to manage blood sugars. Continue jose alberto bid to promote wound healing. Discharge Plan Admission Admit Date/Time: 12/03/22 13:48 Attending Provider: Geo Petit Primary Care Provider: Dominguez Vidales Consulting Providers: Raphael Beauchamp; Lisa Day; Severo Bruno; Obed Huizar Discharge Orders/Prescriptions Prescriptions: New vancomycin in dextrose 5 % 1 gram/200 mL Piggyback 1,000 mg IV Q12H 38 Days Qty: 15701 0RF Rx Instructions: stop date 01/15/23 dx: osteomyelitis weekly bmp, cbc, vanc trough, and esr. Fax to [phone] routine picc care per protocol metronidazole 500 mg Tablet 500 mg PO TID 40 Days Qty: 120 0RF oxycodone 5 mg Tablet 5 mg PO Q6H PRN PRN (Reason: Pain Score 4-10) 3 Days Qty: 10 0RF Continued atenolol 100 MG tablet 100 mg PO DAILY Patient Comments: PT STATES HAS NOT BEEN TAKING WHILE ON ANTIBIOTICS. BP HAS BEEN LOW WHILE ON ANTIBIOTICS. glimepiride 4 mg Tablet 4 mg PO BID hydroxyzine pamoate 25 mg capsule 25 mg PO DAILY Patient Comments: TAKE 1 CAPSULE BY MOUTH THREE TIMES DAILY NEEDED FOR ANXIETY. pravastatin 20 mg tablet 20 mg PO QHS Levemir FlexPen 100 unit/mL (3 mL) insulin pen 40 unit SUBCUT QHS Patient Comments: INJECT 40 UNITSCSUBCUTANEOUSLY DAILY AT BEDTIME tizanidine 2 mg tablet 2 mg PO TID PRN (Reason: spasms) Trulicity 0.75 mg/0.5 mL pen injector 0.75 mg subcut QWEEK cholecalciferol (vitamin D3) 125 mcg (5,000 unit) capsule 250 mcg PO DAILY melatonin 5 mg capsule 10 mg PO QHS Jose Alberto 7-7-1.5 gram powder in packet 1 ea PO BID multivit with min-folic acid [Women's Multivitamin Gummies] 120 mcg tablet,chewable 1 tab PO DAILY Probiotic 10 billion cell capsule 100 mmu cells PO DAILY Patient Comments: PT GETS OTC UNSURE OF STRENGTH lisinopril 40 mg tablet 40 mg PO DAILY Patient Comments: PT STATES HAS NOT BEEN TAKING WHILE ON ANTIBIOTICS. BP HAS BEEN LOW WHILE ON ANTIBIOTICS. hydrochlorothiazide 25 mg tablet 25 mg PO DAILY Patient Comments: TAKE 1 TABLET BY MOUTH EVERY DAY polyethylene glycol 3350 [ClearLax] 17 gram/dose powder 8.5 g PO DAILY Discontinued levofloxacin 750 mg tablet 750 mg PO BID Patient Comments: X14 DAYS FILLED AT [facility] ON 11/26/22 doxycycline hyclate 100 mg tablet 100 mg PO BID Patient Comments: X14 DAYS FILLED AT [facility] ON 11/26/22 Referrals / Follow Up: Dominguez Vidales MD [Primary Care Provider] - Disposition Disposition (needs filled in before D/C Order can be placed): [facility]
--- NOTE | 2022-12-11 12:15 | DS.PCM_ITS ---
Providers Date of Admission: 12/03/22 Primary Care Physician: Dr. 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 Routine Comment: Reason for Consult:: left leg/foot 12/07/22 18:52 Consult: Infectious Disease Routine Consulting Provider: Severo Bruno Reason for Consult: osteomylitis EMERGENT Consult: No Notified: Yes Date Notified: 12/07/22 Time Notified: 18:52 Method of Notification: Text Reason For Visit: NONHEALING FOOT ULCER Diagnosis Discharge Diagnosis (1) Osteomyelitis of foot, left, acute: Status: Acute Code(s): M86.172 - Other acute osteomyelitis, left ankle and foot (2) Spontaneous rupture of flexor tendons, left ankle and foot: Status: Acute Code(s): M66.372 - Spontaneous rupture of flexor tendons, left ankle and foot Medications at Discharge Home Medications atenolol 100 mg tablet 100 mg PO DAILY 02/22/15 glimepiride 4 mg tablet 4 mg PO BID 07/01/22 hydroxyzine pamoate 25 mg capsule 25 mg PO DAILY 07/01/22 insulin detemir U-100 100 unit/mL (3 mL) subcutaneous pen (Levemir FlexPen) 40 unit subcut QHS 07/01/22 pravastatin 20 mg tablet 20 mg PO QHS 07/01/22 tizanidine 2 mg tablet 2 mg PO TID PRN spasms 07/01/22 dulaglutide 0.75 mg/0.5 mL subcutaneous pen injector (Trulicity) 0.75 mg subcut QWEEK 11/19/22 Lactobacillus acidophilus 10 billion cell capsule (Probiotic) 100 mmu cells PO DAILY 12/03/22 arginine 7 gram-glutamine 7 gram-calcium HMB 1.5 gram oral powder pack (Jose Alberto) 1 ea PO BID SUPPLEMENT 12/03/22 cholecalciferol (vitamin D3) 125 mcg (5,000 unit) capsule 250 mcg PO DAILY 12/03/22 hydrochlorothiazide 25 mg tablet 25 mg PO DAILY FLUID 12/03/22 lisinopril 40 mg tablet 40 mg PO DAILY B/P 12/03/22 melatonin 5 mg capsule 10 mg PO QHS SLEEP 12/03/22 multivitamin with minerals-folic acid 120 mcg chewable tablet (Women's Multivitamin Gummies) 1 tab PO DAILY 12/03/22 polyethylene glycol 3350 17 gram/dose oral powder (ClearLax) 8.5 g PO DAILY CON STIPATION 12/03/22 vancomycin 1 gram/200 mL in dextrose 5 % intravenous piggyback 1,000 mg IV Q12H 38 days #15,200 mL 12/08/22 metronidazole 500 mg tablet 500 mg PO TID 40 days #120 tabs 12/11/22 oxycodone 5 mg tablet 5 mg PO Q6H PRN PRN Pain Score 4-10 3 days #10 tabs 12/11/22 Hospital Course Operations - (1) incision and drainage abscess left Achilles tendon and calcaneal bone 2) debridement left Achilles tendon excisional 3) complex wound closure left Achilles tendon I&D site 4) application of delta frame external fixator to stabilize left Achilles tendon rupture and offload posterior heel wound) Procedures None Summary of Care Provided Minutes Spent on Discharge: 40 Hospital Course: Per HPI: NOHEMY PARK, is a 62 F with a PMH as outlined who presents via the ED On 12/03/2022 with a complaint of a nonhealing wound of the left heel> This had been going on for several days. It started as an abrasion to the left heel, but it still wasnt getting better. She denied any fever, chills, cough, chest pain, palpitations, any discharge, or redness around the left heel. Review of systems is otherwise negative. VItals in the ED were BP of 130/75, IL of 145, RR of 18 and temp of 97.8F. She was saturating at 100% on room air. CCB showed hb of 13.8, wbc of 13 and platelets of 552. ESR was 58 and CRP was also elevated at 37.6. She is being admitted to be managed for nonhealing ulcer of the left heel in a known diabetic. Hospital Course: 1. Osteomyelitis of the calcaneus/rupture of Achilles tendon status post repair on 12/04/2022 ? Multi organisms, infectious diseases saw the patient today and recommends IV vancomycin for 6 weeks with a stop date of 01/15/2023, weekly labs will need to be monitored and patient will have ID follow-up in 2 to 3 weeks. ? PT/OT plan for discharge to [facility] home when able since she refused to go to [facility] which she had selected on Wednesday12/11/2022: Pre-CERT has been obtained and we will plan to discharge to SNF today. We will continue with oxycodone every 6 hours as needed. I discussed with her the plan for discharge today she expressed understanding of the risk benefits of going and would like to go today to start rehab. She has p.o. Flagyl and IV vancomycin for 40 days and a PICC line is in place 2. HTN/HLD ? Blood pressure are stable ? Continue with her home blood pressure medication 3. DM2 ? Blood sugar is uncontrolled ? Sliding scale insulin ?Accu-Cheks ACHS ? Will monitor and make adjustments as necessary Weight / BMI Weight Weight: 230 lb 13.184 oz Body Mass Index (BMI) 39.6 ABG / Lab / Microbiology Data 12/11/22 06:10 12/11/22 06:10 Laboratory: Laboratory Results - last 24 hr 12/10/22 16:24: POC Glucose 223 H 12/11/22 05:53: POC Glucose 93 12/11/22 06:10: WBC 11.6 H, RBC 3.83 L, Hgb 12.1, Hct 37.4, MCV 97.7, MCH 31.6, MCHC 32.4, RDW Std Deviation 50.4 H, RDW Coeff of Yessi 14.1, Plt Count 570 H, MPV 9.5, Immature Gran % (Auto) 0.400, Neut % (Auto) 52.5, Lymph % (Auto) 35.6, Boundary % (Auto) 7.4, Eos % (Auto) 3.6, Baso % (Auto) 0.5, Absolute Neuts (auto) 6.1, Absolute Lymphs (auto) 4.13, Nucleated RBC % 0, Sodium 141, Potassium 3.5, Chlor tez 109 H, Carbon Dioxide 27.0, Anion Gap 5, BUN 13, Creatinine 0.73, Estim Creat Clear Calc 69.88, Est GFR (MDRD) Af Amer 104, Est GFR (MDRD) Non-Af 86, BUN/Creatinine Ratio 17.8, Glucose 103, Calcium 9.1 Microbiology: Microbiology 12/04/22 Unknown Wound - Left Foot Gram Stain - Final 12/04/22 Unknown Wound - Left Foot Wound Culture - Final Streptococcus sanguinis Enterococcus faecalis 12/04/22 Unknown Wound - Left Foot Anaerobic Culture - Final Anaerobic cocci Prevotella bivia 12/04/22 Unknown Wound - Left Foot Gram Stain - Final 12/04/22 Unknown Wound - Left Foot Wound Culture - Final Enterococcus faecalis Streptococcus sanguinis 12/04/22 Unknown Wound - Left Foot Anaerobic Culture - Final Anaerobic cocci Prevotella bivia 12/04/22 Unknown Wound - Heel, Left Gram Stain - Final 12/04/22 Unknown Wound - Heel, Left Wound Culture - Final Enterococcus faecalis 12/04/22 Unknown Wound - Heel, Left Anaerobic Culture - Final Anaerobic cocci 12/04/22 Unknown Bone - Left Foot Gram Stain - Final 12/04/22 Unknown Bone - Left Foot Wound Culture - Final Staphylococcus capitis Streptococcus sanguinis 12/04/22 Unknown Bone - Left Foot Anaerobic Culture - Final Anaerobic cocci 12/03/22 14:02 Blood Culture (Wb) - Anticubital Left Blood Culture - Final Fingoldia magna 12/03/22 14:20 Blood Culture (Wb) - Anticubital Right Blood Culture - Final No growth in 5 days. Meaningful Use Info Meaningful Use Diagnoses (Choose all that apply): None applicable Discharge Plan Admission Admit Date/Time: 12/03/22 13:48 Attending Provider: Geo Petit Primary Care Provider: Dominguez Vidales Consulting Providers: Raphael Beauchamp; Lisa Day; Severo Bruno; Obed Huizar Discharge Orders/Prescriptions Prescriptions: New vancomycin in dextrose 5 % 1 gram/200 mL Piggyback 1,000 mg IV Q12H 38 Days Qty: 36117 0RF Rx Instructions: stop date 01/15/23 dx: osteomyelitis weekly bmp, cbc, vanc trough, and esr. Fax to [phone] routine picc care per protocol metronidazole 500 mg Tablet 500 mg PO TID 40 Days Qty: 120 0RF oxycodone 5 mg Tablet 5 mg PO Q6H PRN PRN (Reason: Pain Score 4-10) 3 Days Qty: 10 0RF Continued atenolol 100 MG tablet 100 mg PO DAILY Patient Comments: PT STATES HAS NOT BEEN TAKING WHILE ON ANTIBIOTICS. BP HAS BEEN LOW WHILE ON ANTIBIOTICS. glimepiride 4 mg Tablet 4 mg PO BID hydroxyzine pamoate 25 mg capsule 25 mg PO DAILY Patient Comments: TAKE 1 CAPSULE BY MOUTH THREE TIMES DAILY NEEDED FOR ANXIETY. pravastatin 20 mg tablet 20 mg PO QHS Levemir FlexPen 100 unit/mL (3 mL) insulin pen 40 unit SUBCUT QHS Patient Comments: INJECT 40 UNITSCSUBCUTANEOUSLY DAILY AT BEDTIME tizanidine 2 mg tablet 2 mg PO TID PRN (Reason: spasms) Trulicity 0.75 mg/0.5 mL pen injector 0.75 mg subcut QWEEK cholecalciferol (vitamin D3) 125 mcg (5,000 unit) capsule 250 mcg PO DAILY melatonin 5 mg capsule 10 mg PO QHS Jose Alberto 7-7-1.5 gram powder in packet 1 ea PO BID multivit with min-folic acid [Women's Multivitamin Gummies] 120 mcg tablet,chewable 1 tab PO DAILY Probiotic 10 billion cell capsule 100 mmu cells PO DAILY Patient Comments: PT GETS OTC UNSURE OF STRENGTH lisinopril 40 mg tablet 40 mg PO DAILY Patient Comments: PT STATES HAS NOT BEEN TAKING WHILE ON ANTIBIOTICS. BP HAS BEEN LOW WHILE ON ANTIBIOTICS. hydrochlorothiazide 25 mg tablet 25 mg PO DAILY Patient Comments: TAKE 1 TABLET BY MOUTH EVERY DAY polyethylene glycol 3350 [ClearLax] 17 gram/dose powder 8.5 g PO DAILY Discontinued levofloxacin 750 mg tablet 750 mg PO BID Patient Comments: X14 DAYS FILLED AT PT [facility]ARM[facility] ON 11/26/22 doxycycline hyclate 100 mg tablet 100 mg PO BID Patient Comments: X14 DAYS FILLED AT [facility] ON 11/26/22 Referrals / Follow Up: Dominguez Vidales MD [Primary Care Provider] - Severo Bruno MD [Med Staff - Active Staff] - Within 1 Month Disposition Disposition (needs filled in before D/C Order can be placed): Senior Living Facility Charges/Coding Visit Charges Inpatient E&M: 53566 Disch Hosp >30min
--- NOTE | 2022-12-11 12:15 | CASEMGMT ---
Discharge Planning Precert obtain. SW notified. Tamica Rivas, Discharge Planning Asst.
[2022-12-11 12:26] LABS: Bedside Glucose 146 mg/dL (74-106)
--- NOTE | 2022-12-11 12:35 | PN.ID_ITS ---
Physical Exam Narrative Feeling ok, no fever, no n/v/d Const alert and no apparent distress General Appearance: cooperative Resp normal air movement and clear to auscultation bilaterally Cardio regular rate and regular rhythm GI soft to palpation, non-tender and non-distended Skin Skin Narrative: leg wrapped ID ID: Route of nutrition/ use of supplements: [] Nutritional Intake: [] IV Site: [] Sterling Catheter: [] Assessment & Plan Assessment/Plan (1) Osteomyelitis of foot, left, acute: PLAN: Taken to OR 12/04/[address] Wu for I&D and external fixator placement. Wound and surg cxs with MS-staph hominis, enterococcus, and strep. H/o rash with augmentin. On 6 weeks iv vanc, stop date 01/15/23 with weekly labs, ID followup in 2-3 weeks. Cxs now with multiple anaerobes, will add po flagyl Will follow, d/w dependency case manager (2) Spontaneous rupture of flexor tendons, left ankle and foot: (3) Diabetes mellitus with diabetic polyneuropathy:
[2022-12-11] MEDS: Insulin Lispro 100 UNIT/ML INSULN.PEN 18 UNIT SC (12:37)
--- NOTE | 2022-12-11 13:11 | CASEMGMT ---
Discharge Planning Discharge orders, signed med list, passr and transport time sent to [facility] via [facility]. [facility] will transport patient by cot at 2p. Nursing, SW, and patient updated. Tamica Rivas, Discharge Planning Asst.
[2022-12-11] MEDS: metroNIDAZOLE 500 MG Tablet PO (13:28)
[2022-12-11 13:56] VITALS: BP 129/89; PULSE 99; RESP 18; TEMP 37; O2SAT 99
--- NOTE | 2022-12-11 15:28 | NURSING ---
Report called to [facility] to POLO Bañuelos @ [phone]. Pt leaving with right upper arm double lumen PICC. Dressing c/d/i. Wound vac removed and wound dressed with wet to dry dressing prior to discharge.
[2022-12-12 08:11] LABS: Bedside Glucose 93 mg/dL (74-106)
== END 2022-12-11 15:00 | DRG 478 ==
LOC: ED 12:43 → PCU 14:56
PROVIDERS: Family Medicine; Internal Medicine; Podiatrist; Admitting Provider Student in an Organized Health Care Education/Training Program; Emergency Provider Student in an Organized Health Care Education/Training Program; PCP Family Medicine; Visit Provider Family Medicine
PROC: 0QBM0ZX Excision of Left Tarsal, Open Approach, Diagnostic (ICD-10-PCS; principal; 2022-12-04 13:15)
DX: M65.072 Abscess of tendon sheath, left ankle and foot (principal); L03.116 Cellulitis of left lower limb; M86.172 Other acute osteomyelitis, left ankle and foot; L97.423 Non-pressure chronic ulcer of left heel and midfoot with necrosis of muscle; E11.42 Type 2 diabetes mellitus with diabetic polyneuropathy; B95.2 Enterococcus as the cause of diseases classified elsewhere; B95.0 Streptococcus, group A, as the cause of diseases classified elsewhere; B95.7 Other staphylococcus as the cause of diseases classified elsewhere; E11.621 Type 2 diabetes mellitus with foot ulcer; G35 Multiple sclerosis; Z79.4 Long term (current) use of insulin; E11.69 Type 2 diabetes mellitus with other specified complication; E11.65 Type 2 diabetes mellitus with hyperglycemia; I10 Essential (primary) hypertension; E78.5 Hyperlipidemia, unspecified; M66.372 Spontaneous rupture of flexor tendons, left ankle and foot; B96.6 Bacteroides fragilis [B. fragilis] as the cause of diseases classified elsewhere; B96.89 Other specified bacterial agents as the cause of diseases classified elsewhere; R00.0 Tachycardia, unspecified; R60.0 Localized edema; Z91.199 Patient's noncompliance with other medical treatment and regimen due to unspecified reason; Z79.2 Long term (current) use of antibiotics; Z79.84 Long term (current) use of oral hypoglycemic drugs; Z79.85 Long-term (current) use of injectable non-insulin antidiabetic drugs; Z79.899 Other long term (current) drug therapy
CPT/HCPCS: 36415; 36569; 71045; 71275; 73610; 73630; 73721; 76000; 80048; 80202; 82565; 82962; 84484; 85025; 85379; 85652; 86140; 87040; 87070; 87075; 87077; 87102; 87176; 87186; 87205; 87206; 93005; 94668; 97110; 97162; 97166; 97530; 97535; 97802; 99213; 99284; C1713; J2185; J7030; J7040; J7050; J7120; Q9967; A4216; G0463; J2405

== ENCOUNTER 2023-01-22 05:49 | Day surgery (SDC) | payer MEDICARE, SELFPAY ==
[2023-01-22 06:25] VITALS: BP 102/65; PULSE 82; RESP 18; TEMP 36.2; O2SAT 99; BMI 37.8
[2023-01-22] MEDS: 0.9% Normal Saline (1000mL) 1,000 ML 25 ML IV (06:32)
[2023-01-22 06:56] LABS: Bedside Glucose 198 mg/dL (74-106)
[2023-01-22] MEDS: Cefazolin 2 GM in 0.9% Normal Saline (100mL Bag) 100 ML IV (07:28)
[2023-01-22] MEDS: Bupivacaine Mpf 0.5% 30 ML VIAL ×2 (07:40→07:46)
[2023-01-22 08:19] VITALS: BP 102/65; BP 91/32; PULSE 84; RESP 16; TEMP 36.9; O2SAT 98
--- NOTE | 2023-01-22 08:19 | OP.PCM_ITS ---
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 Full-thickness wound left posterior Achilles 2. Diabetic neuropathy 3. Retained external fixator left lower extremity 4. Chronic left Achilles rupture 5. History osteomyelitis left lower extremity wound Post-Operative Diagnosis: Same Surgery/Procedure Performed:: 1. Removal of external fixator left lower extremity 2. Wound debridement left lower extremity with graft site preparation 3. 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 All osseous prominences offloaded to prevent any compression neuropraxia's. Patient induced under general anesthesia. 1. Once cleared by anesthesia, pin sites and external fixator were prepped with Betadine paint and this was atraumatically removed using T-handle. Left lower extremity was then scrubbed prepped and draped using aseptic technique after external fixator was removed. Pin sites were then curetted and flushed with copious amounts of normal sterile saline. 2. Attention was taken to the posterior left ankle wound. Predebridement measu rement was noted to be 1.5 x 2.5 x 0.3 cm. The wound was prepared using a surgical curette and debrided until a nice healthy granular bleeding base. Additional graft site prep was performed by flushing the site with copious amounts of normal sterile saline and cleaning the skin edges of any nonviable tissue. Postdebridement the wound measured 1.7 x 2.7 x 0.4 cm with a clean granular base, no deep probing undermining or signs of infection noted. Some gentle bleeding noted no overt hemostasis required. 3. 2 x 4 cm [employer] graft was applied to the wound site and state and secured using a saline moistened gauze so that the graft would absorb into the wound site. The entire graft was used, no waste. The graft was then secured with an overlying Adaptic and quarter inch Steri-Strips. Next, the pin sites were dressed with Betadine paint Adaptic 4 x 4's Kerlix and a well-padded AO splint. No tourniquet was used. Adequate hemostasis noted. No obvious signs of residual infection, patient is receiving p.o. linezolid. Patient was transferred to PACU vital signs stable and vascular status intact all digits for further monitoring prior to discharge. Patient tolerated procedure and anesthesia well apparent satisfactory condition. Patient will maintain nonweightbearing return to SNF and follow-up in 1 week. No complication Findings suggest that the Achilles tendon is still nonfunctional, will likely plan for long-term bracing Wound significantly improved devoid of any residual signs of infection, patient still receiving p.o. linezolid Complications None Admit VTE Documentation VTE Present on Admission: Yes VTE Pharm Prophylaxis ordered?: Yes
[2023-01-22 08:30] VITALS: BP 102/65; BP 92/51; PULSE 82; RESP 16; O2SAT 96
--- NOTE | 2023-01-22 08:35 | RAD_ITS ---
STUDY: X-RAY - LEFT TIBIA AND FIBULA REASON FOR EXAM: Female, 62 years old. Postop removal of external fixator. TECHNIQUE: 2 view(s) of the tibia and fibula were obtained. COMPARISON: None. FINDINGS: Defects are seen in the mid tibial diaphysis in keeping with the screw removal. Normal visualized fibula. Postoperative soft tissue changes. RAD/Tibia & Fibula 2 Views IMPRESSION: Status post hardware removal. Postoperative soft tissue changes. Electronically Signed: Juan Miguel Gomez MD at 9:19 EDT ,
[2023-01-22 08:45] VITALS: BP 102/65; BP 112/70; PULSE 83; RESP 16; O2SAT 95
[2023-01-22 08:48] LABS: Bedside Glucose 191 mg/dL (74-106)
[2023-01-22 08:52] VITALS: BP 102/65; BP 112/72; PULSE 83; RESP 16; TEMP 36.6; O2SAT 96
[2023-01-22 10:48] VITALS: BP 102/65; BP 147/76; PULSE 89; RESP 18; TEMP 36.6; O2SAT 96
== END 2023-01-22 10:53 | disposition home or self-care (01) ==
LOC: SDC 05:51 → AC 05:52
PROVIDERS: PCP Family Medicine; Referring Provider Podiatrist; Visit Provider Podiatrist
PROC: (CPT 20694; principal; 2023-01-22 07:20)
DX: E11.622 Type 2 diabetes mellitus with other skin ulcer (principal); L97.223 Non-pressure chronic ulcer of left calf with necrosis of muscle; M86.172 Other acute osteomyelitis, left ankle and foot; E11.40 Type 2 diabetes mellitus with diabetic neuropathy, unspecified; E11.69 Type 2 diabetes mellitus with other specified complication; M66.342 Spontaneous rupture of flexor tendons, left hand; I10 Essential (primary) hypertension; Z79.84 Long term (current) use of oral hypoglycemic drugs; Z79.899 Other long term (current) drug therapy; S91.002A Unspecified open wound, left ankle, initial encounter; X58.XXXA Exposure to other specified factors, initial encounter
CPT/HCPCS: 20694; 15002; 00400; 15275; Q4163; 73590; 82962; J7030; J7120; J2405

== ENCOUNTER 2023-08-24 14:07 | Outpatient (RCR) | payer MEDICARE, SELFPAY ==
--- NOTE | 2023-08-24 16:30 | HP.PTEVAL ---
Patient's Visit Information Visit Information Visit Information: NOHEMY PARK is a 63 year old F referred to Physical Therapy by Dr. Stephane Wu DPM with a diagnosis of LACERATION OF ACHILLES TENDON. Date of Evaluation: 08/24/23 Physical Therapist: Homer Radford, PT, Cert MDT, OCS Visit Plan Frequency: 2-3x /Week Duration: 8-12WEEKS Plan: S/P SURGERY ACHILLES 12/04/22 AND 01/21/23 AMBULATES WITH FWW AND ANKLE BRACE WBAT LLE PT INTERVENTIONS PROGRESSIVE GAIT AND BALANCE TRAINING ,STRENGTHENING BLE ESPECIALLY (HIPS AND LEFT ANKLE) ,PROPRIOCEPTION AND FUNCTIONAL STRENGTHENING Subjective Subjective: This 63 y/o female presents to physical therapy with laceration of achilles tendon. Patient initially had ulcer from shoe . Patient had surgery 1st surgery due torn Achilles incision and drainage abscess left Achilles tendon and calcaneal bone , debridement left Achilles tendon excisional , complex wound closure left Achilles tendon I&D site application of delta frame external fixator to stabilize left Achilles tendon rupture and offload posterior heel wound on 12/04/22 . Patient was in hospital 8 days then transferred to [place] then d/c home [facility] then had 2 nd surgery 01/22 Removal of external fixator left lower extremity Wound debridement left lower extremity with graft site preparation Application of [employer] skin substitute graft. [facility] ,mobility was in w/c. Patient WBAT Thanksgiving with walker with boot. Patient was getting [facility] PT until ~ 2 weeks ago. Patient transferred to brace ~ since May with brace with walking. Seen Dr ~ 1 month ago and start PT. Patient min pain occasional sharp pain. Patient has no paresthesia/tingling. Patient has stool in shower. 1 story home with 1 stair. Patient is I with dressing . Patient is WBAT LLE with rolling walker. Patient has limitations with extended walking needed walker. Patient goal to get stronger and walk no device and balance. Patient RTD November 01. Patient condition affects QOL and function/housework task/job demands . Patient RTW tomorrow. SOCIAL: VOCATION: Secetary Objective Objective: POSTURE:( frontal plane) pes cavus NEURO: intact ,denies paresthesia/tingling INCISION: well approximate EDEMA: trimalleolar 50.5 cm AROM: dorsiflexion 5 degrees ,plantarflexion 60 degrees ,eversion 5 degrees ,inversion 30 degrees MMT: ( peak force) anterior tibialis 21.8 ,G-S 32.2 ,peroneus 13.5 ,posterior tibialis 12.2 ,hip flexors right 0m ,left 5.2 ,hip abductors 0 GAIT: ambulates with fww Mod I reciprocal pattern left ankle brace b , ambulated with cane 2 point slow stacy with CGA BALANCE: fair+ Sit-Stand unable without using arms Balance/Special Test Scores CATSIB Score (Max score 120 seconds): 50 Lower Extremity Functional Score: 24 Goals Goal 1:: Patient to be I with HEP Goal Time Frame: 8-12 Weeks Goal 2:: Patient to improve gait with cane at community distance with good- balance Goal Time Frame: 8-12 Weeks Goal 3:: Patient to improve peak hips by 10# and ankle 5# or> to improve gait Goal Time Frame: 8-12 Weeks Goal 4:: Patient to improve CATSIB by 10 -15 points to improve balance with cane Goal Time Frame: 8-12 Weeks Goal 5:: Patient to demonstrate 50 % improvement with gait and balance for ADLS Goal Time Frame: 8-12 Weeks Goal 6:: Patient to improve LFES score by 10 points to improve QOL and function Goal Time Frame: 8-12 Weeks Rehabilitation Potential Physical Therapy Diagnosis: This patient underwent 2 surgeys to repair achilles tendon with current function is impaired gait with fww ,decrease balance weakness in leg especially ,hips and causes deficits with job demands and ADLS/housework tasks thus benefit from skilled PT Rehabilitation Potential: Good Anticipated Interventions Patient/Client Instruction: Educate patient on: Condition and Plan of Care For the Purpose of:: To decrease pain, To increase ROM, To improve muscle performance and motor function, To improve ability to perform ADL's, To increase tolerance to activity/condition/position, To improve ability of physical actions for home/community/work/leisure, To improve gait and locomotor functions, To improve health of tissue, To decrease soft tissue restriction, To increase flexibility/ROM, To improve endurance, To improve balance and To improve tolerance to ADL's Therapeutic Exercise to Include: Strength training, Endurance training, Balance training, Gait and locomotor training, In an aquatic setting, Passive ROM and Dynamic Lumbar Stabilization Comment: AQUATICS NEEDED BLE STRENGTHENING For the Purpose of:: To decrease pain, To increase ROM, To improve muscle performance and motor function, To improve ability to perform ADL's, To increase tolerance to activity/condition/position, To improve ability of physical actions for home/community/work/leisure, To improve gait and locomotor functions, To improve health of tissue, To decrease soft tissue restriction, To increase flexibility/ROM, To improve endurance, To improve balance, To improve safety with gait, To assume or resume ADL's and To improve tolerance to ADL's Text: Thank you for the opportunity to evaluate your patient. For Medicare and Medicare HMO plans, please review the plan of care and approve it. It will need to be FAXED BACK to us at [phone] for Medicare purposes. For Medicare only, by signing this I certify the plan of care. Please let me know if there are questions or concerns regarding this plan of care. Physician Signature: Date:
--- NOTE | 2023-11-26 14:51 | HP.PT.NRP ---
Patient Information Patient Information: NOHEMY PARK was seen in my office for initial evaluation on 08/24/23. The following Plan of Care was established for this patient: POC Established Initial Frequency: 2-3x /Week Initial Duration: 8-12WEEKS Anticipated Interventions Patient/Client Instruction: Educate patient on: Condition and Plan of Care For the Purpose of:: To decrease pain, To increase ROM, To improve muscle performance and motor function, To improve ability to perform ADL's, To increase tolerance to activity/condition/position, To improve ability of physical actions for home/community/work/leisure, To improve gait and locomotor functions, To improve health of tissue, To decrease soft tissue restriction, To increase flexibility/ROM, To improve endurance, To improve balance and To improve tolerance to ADL's Therapeutic Exercise to Include: Strength training, Endurance training, Balance training, Gait and locomotor training, In an aquatic setting, Passive ROM and Dynamic Lumbar Stabilization For the Purpose of:: To decrease pain, To increase ROM, To improve muscle performance and motor function, To improve ability to perform ADL's, To increase tolerance to activity/condition/position, To improve ability of physical actions for home/community/work/leisure, To improve gait and locomotor functions, To improve health of tissue, To decrease soft tissue restriction, To increase flexibility/ROM, To improve endurance, To improve balance, To improve safety with gait, To assume or resume ADL's and To improve tolerance to ADL's Last Seen Last Seen: This patient was last seen in our office . Pertinent comments regarding their Physical therapy will appear below: Patient seen for PT for laceration of achilles tendon with surgery for HEP thus d/c At this point I will be discontinuing this patient from physical therapy. I would be happy to see this patient again in the future if found appropriate by the physician. Thank you! Homer Radford, PT, Cert MDT, OCS Balance/Gait/Functional tests Balance/Special Test Scores CATSIB Score (Max score 120 seconds): 50 Lower Extremity Functional Score: 24
== END 2023-08-24 19:00 | disposition home or self-care (01) ==
LOC: PT 14:07
PROVIDERS: PCP Family Medicine; Referring Provider Podiatrist; Visit Provider Podiatrist
DX: S86.022D Laceration of left Achilles tendon, subsequent encounter (principal)
CPT/HCPCS: 97110; 97162

== ENCOUNTER 2023-10-23 17:29 | Emergency (ER) | payer MEDICARE, SELFPAY ==
[2023-10-23 17:30] VITALS: BP 101/74; PULSE 88; RESP 16; TEMP 36; O2SAT 98; BMI 39.4
--- NOTE | 2023-10-23 17:45 | ED.VIS.GI ---
HPI HPI - GI History of Present Illness Chief Complaint: Constipation Informant: patient Abdominal Pain/Flank Pain Onset: Today Context: Gradual Onset Timing: Intermittent Quality: Sharp Location: RLQ and LLQ Worsened by: Nothing Relieved by: Nothing Nausea/Vomiting/Emesis GI Symptom: Negative for Nausea or Vomiting Diarrhea/Melena/Hematochezia GI Symptom: Negative for Diarrhea, Melena or Hematochezia Associated Symptoms Associated Symptoms: Negative for Dysuria, Frequency or Hematuria Narrative Narrative: Patient presents with abdominal pain and constipation that has been getting worse over the past couple days. Patient states that she started having some lower abdominal pain this morning. Patient states that she has been constipated for the past couple days. Patient states she took some Ex-Lax last evening which normally helps with her constipation. Patient states she is also taken some milk of magnesia with minimal relief. Patient states she is able to have some small bowel movements. Patient states she still feels like there is large amount of stool in her colon. Patient denies any fevers or chills. Patient denies any nausea or vomiting. Patient denies any melena or hematochezia. Patient denies any urinary complaints. Prior similar symptoms: Yes [facility] Medical History (Updated 10/23/23 @ 20:[address] Harvey Abraham, DO) Lives in [place] [facility] Open wound Insulin dependent diabetes mellitus Uses wheelchair Walker as ambulation aid Dietary restriction History of edema Anxiety Non-smoker Type 2 diabetes mellitus with foot ulcer Diabetes mellitus with diabetic polyneuropathy Hypertension Multiple sclerosis Home Medications ?Medication ?Instructions ?Recorded ?Last Taken ?Type atenolol 100 mg tablet 100 mg PO DAILY 02/22/15 11/26/22 History glimepiride 4 mg tablet 4 mg PO BID 07/01/22 12/03/22 History insulin detemir U-100 100 unit/mL 40 unit subcut QHS 07/01/22 12/02/22 History (3 mL) subcutaneous pen (Levemir FlexPen) pravastatin 20 mg tablet 20 mg PO QHS 07/01/22 12/02/22 History tizanidine 2 mg tablet 2 mg PO TID PRN spasms 07/01/22 12/02/22 History dulaglutide 0.75 mg/0.5 mL 0.75 mg subcut QWEEK 11/19/22 11/25/22 History subcutaneous pen injector (Trulicity) Lactobacillus acidophilus 10 100 mmu cells PO DAILY 12/03/22 12/03/22 History billion cell capsule (Probiotic) arginine 7 gram-glutamine 7 1 ea PO BID SUPPLEMENT 12/03/22 12/02/22 History gram-calcium HMB 1.5 gram oral powder pack (Jose Alberto) cholecalciferol (vitamin D3) 125 50 mcg PO DAILY 12/03/22 12/03/22 History mcg (5,000 unit) capsule hydrochlorothiazide 25 mg tablet 25 mg PO DAILY FLUID 12/03/22 Unknown History lisinopril 40 mg tablet 40 mg PO DAILY B/P 12/03/22 11/26/22 History melatonin 5 mg capsule 10 mg PO QHS SLEEP 12/03/22 12/02/22 History multivitamin with minerals-folic 1 tab PO DAILY 12/03/22 Unknown History acid 120 mcg chewable tablet (Women's Multivitamin Gummies) polyethylene glycol 3350 17 8.5 g PO DAILY CONSTIPATION 12/03/22 Unknown History gram/dose oral powder (ClearLax) oxycodone 5 mg tablet 5 mg PO Q6H PRN PRN Pain Score 12/11/22 Unknown Rx 4-10 3 days #10 tabs hydrocortisone-aloe vera 1 % 1 applic topical BID 01/12/23 Unknown History topical cream (Anti-Itch (hydrocortisone) with Aloe) insulin detemir U-100 100 unit/mL 10 unit subcut DAILY 01/12/23 Unknown History (3 mL) subcutaneous pen (Levemir FlexPen) insulin lispro 100 unit/mL 3 unit subcut TID 01/12/23 Unknown History subcutaneous pen (Humalog KwikPen (U-100) Insulin) linezolid 600 mg tablet 600 mg PO BID 01/12/23 Unknown History ciprofloxacin HCl 500 mg tablet 500 mg PO BID #14 TABLETS 10/23/23 Unknown Rx metronidazole 500 mg tablet 500 mg PO Q8H #21 tabs 10/23/23 Unknown Rx Allergy/AdvReac Type Severity Reaction Status Date / Time amoxicillin trihydrate (From Allergy Rash Verified 10/23/23 17:58 Augmentin) diflunisal (From Dolobid) Allergy Rash Verified 10/23/23 17:58 fish derived Allergy PT UNSURE Verified 10/23/23 17:58 OF REACTION moxifloxacin HCl (From Allergy Rash Verified 10/23/23 17:58 Avelox) potassium clavulanate (From Allergy Rash Verified 10/23/23 17:58 Augmentin) shellfish derived Allergy PT UNSURE Verified 10/23/23 17:58 OF REACTION Sulfa (Sulfonamide Allergy PT UNSURE Verified 10/23/23 17:58 Antibiotics) OF REACTION sulfamethoxazole (From Allergy Rash Verified 10/23/23 17:58 Bactrim) trimethoprim (From Bactrim) Allergy Rash Verified 10/23/23 17:58 Surgical History (Updated 10/23/23 @ 17:55 by Sima Taylor) History of cholecystectomy Hx of Achilles tendon repair History of appendectomy History of cholecystectomy Social History Smoking Status: Never smoker ROS ROS ED Constitutional Constitutional ED: Denies chills or fever(s) Eyes Eyes: Denies blurry vision or change in vision ENT ENT ED: Denies rhinorrhea or sore throat Cardiovascular Cardiovascular: Denies chest pain or palpitations Respiratory/Chest Respiratory/Chest: Denies cough or dyspnea Gastrointestinal Gastrointestinal: Reports abdominal pain and constipation; Denies nausea or vomiting Genitourinary Genitourinary ED: Denies dysuria or hematuria Musculoskeletal Musculoskeletal: Denies back pain or neck pain Integumentary Denies abscess or rash Neurologic Neurologic: Denies headache(s) or weakness Allergic/Immunologic Allergic/Immunologic ED: Denies mouth swelling or urticaria EXAM Physical Exam Const Vital Signs: 10/23/23 17:30 Temperature 96.8 F L Temperature Source Temporal Pulse Rate 88 Respiratory Rate 16 Blood Pressure 101/74 Blood Pressure Mean 83 Pulse Ox 98 Oxygen Delivery Method Room Air Positive well nourished and well developed General Appearance ED: well developed and NAD HEENT Reports moist mucous membranes Neck supple and no JVD Resp normal respiratory effort and clear to auscultation bilaterally Cardio regular rate and regular rhythm GI Palpation: soft and tender LLQ, RLQ and suprapubic; Negative for guarding or rebound tenderness present Neuro CN's II-XII intact bilaterally, moves all extremities and no sensory deficits noted Sensorium / Orientation: alert Motor Exam: strength 5/5 throughout Psych mental status grossly normal MDM MDM MDM Narrative Medical decision making narrative: Differential diagnosis includes constipation, bowel obstruction, perforation, urinary tract infection, diverticulitis, and pyelonephritis. CT scan of the abdomen pelvis will be obtained to assess for bowel obstruction, perforation, and diverticulitis. CBC will be obtained to assess for leukocytosis and anemia. Basic metabolic profile will be obtained to assess for electrolyte abnormality and renal function. Urinalysis will be obtained to assess for urinary tract infection and hematuria. Lab Data Attestation: I reviewed the patient's lab results. Lab results narrative: CBC was reviewed. There is a mild leukocytosis of 11.7. The remainder is within normal limits. Basic metabolic profile was reviewed. BUN was slightly elevated at 43 and creatinine was 1.47. These are consistent with prior results. Glucose was elevated at 606. Anion gap was normal. CO2 was normal. Sodium was slightly low at 128. Labs: Laboratory Results - last 24 hr 10/23/23 18:14 WBC 11.7 H RBC 4.30 Hgb 14.0 Hct 39.8 MCV 92.6 MCH 32.6 H MCHC 35.2 RDW Std Deviation 44.6 H RDW Coeff of Yessi 13.2 Plt Count 362 MPV 11.6 Immature Gran % (Auto) 0.300 Neut % (Auto) 84.2 H Lymph % (Auto) 11.9 L [place] % (Auto) 3.3 Eos % (Auto) 0.0 Baso % (Auto) 0.3 Absolute Neuts (auto) 9.9 H Absolute Lymphs (auto) 1.40 Nucleated RBC % 0 Sodium 128 L Potassium 4.1 Chloride 91 L Carbon Dioxide 24.0 Anion Gap 13 BUN 43 H Creatinine 1.47 H Estim Creat Clear Calc 46.70 Est GFR (MDRD) Af Amer 46 L Est GFR (MDRD) Non-Af 38 L BUN/Creatinine Ratio 29.3 H Glucose 606 H* Calcium 9.5 Radiography Diagnostic Testing: Clinical Impression(s) from Imaging Studies Abdomen/Pelvis CT 10/23/23 17:56 IMPRESSION: Wall thickening of the sigmoid colon may be consistent with acute colitis. Stool distended rectum. Electronically Signed: Zamzam Philip MD at 19:29 EDT , CT scan of the abdomen and pelvis was obtained. There is wall thickening of the sigmoid colon which may be consistent with acute colitis. There is stool distending the rectum. There is no other acute abnormality noted. This was interpreted by the radiologist was also independently reviewed by myself. Treatment and Re-Evaluation :: Patient was given IV fluids here. Patient was given a dose of insulin. Patient was given a dose of Bentyl. Patient was ordered a soapsuds enema. Patient was unable to tolerate this. Patient did have a bowel movement here in the emergency department. Patient was still having some feelings of constipation. Patient was advised that this could be from the colitis. Patient was given a dose of Cipro and Flagyl here. Patient was given a prescription for Cipro and Flagyl. Patient has a history of an allergy to Avelox. Patient states that this occurred 40 years ago. Patient does not remember the rash that occurred because of this. Patient thinks she has taken Cipro in the past without difficulties. Patient was instructed to avoid alcohol. Patient was instructed use [id number] MiraLAX as needed for constipation. Repeat blood glucose was 405. Patient was instructed to follow-up with her primary care physician in 5 to 7 days. Patient was instructed to continue to monitor her blood sugars at home. Patient understood and was agreeable with the plan. All questions were answered. Discharge Plan Triage Chief Complaint: Constipation ED Provider: Harvey Abraham Dx/Rx/DC Orders Clinical Impression: Colitis, Uncontrolled diabetes mellitus, Constipation Instructions: ED Understanding Colitis, ED Constipation (Adult) Prescriptions: New metronidazole 500 mg tablet 500 mg PO Q8H Qty: 21 0RF ciprofloxacin HCl 500 mg tablet 500 mg PO BID Qty: 14 0RF No Action atenolol 100 MG tablet 100 mg PO DAILY Patient Comments: PT STATES HAS NOT BEEN TAKING WHILE ON ANTIBIOTICS. BP HAS BEEN LOW WHILE ON ANTIBIOTICS. glimepiride 4 mg Tablet 4 mg PO BID pravastatin 20 mg tablet 20 mg PO QHS Levemir FlexPen 100 unit/mL (3 mL) insulin pen 40 unit SUBCUT QHS Patient Comments: INJECT 40 UNITSCSUBCUTANEOUSLY DAILY AT BEDTIME tizanidine 2 mg tablet 2 mg PO TID PRN (Reason: spasms) Levemir FlexPen 100 unit/mL (3 mL) insulin pen 10 unit subcut DAILY insulin lispro [Humalog KwikPen Insulin] 100 unit/mL insulin pen 3 unit subcut TID Patient Comments: IN ADDITION TO SLIDING SCALE hydrocortisone-aloe vera [Anti-Itch(hydrocortisone)-Aloe] 1 % cream 1 applic topical BID linezolid 600 mg tablet 600 mg PO BID Trulicity 0.75 mg/0.5 mL pen injector 0.75 mg subcut QWEEK cholecalciferol (vitamin D3) 125 mcg (5,000 unit) capsule 50 mcg PO DAILY melatonin 5 mg capsule 10 mg PO QHS Jose Alberto 7-7-1.5 gram powder in packet 1 ea PO BID multivit with min-folic acid [Women's Multivitamin Gummies] 120 mcg tablet,chewable 1 tab PO DAILY Probiotic 10 billion cell capsule 100 mmu cells PO DAILY Patient Comments: PT GETS OTC UNSURE OF STRENGTH lisinopril 40 mg tablet 40 mg PO DAILY Patient Comments: PT STATES HAS NOT BEEN TAKING WHILE ON ANTIBIOTICS. BP HAS BEEN LOW WHILE ON ANTIBIOTICS. hydrochlorothiazide 25 mg tablet 25 mg PO DAILY Patient Comments: TAKE 1 TABLET BY MOUTH EVERY DAY polyethylene glycol 3350 [ClearLax] 17 gram/dose powder 8.5 g PO DAILY oxycodone 5 mg Tablet 5 mg PO Q6H PRN PRN (Reason: Pain Score 4-10) 3 Days Qty: 10 0RF Primary Care Provider: Dominguez Vidales Referrals: Dominguez Vidales MD [Primary Care Provider] - 5-7 Days Print Language: Chinese Disposition Disposition: Home, Self Care
--- NOTE | 2023-10-23 17:56 | CT_ITS ---
EXAM: CT Abdomen And Pelvis W/O Contrast Injection HISTORY: Pain LOW ABDOMEN AND RECTAL PAIN,CONSTIPATION HX:DIABETES,HTN,MS SURGERY:JAMESON,CSECTION X 2,TUBAL TECHNIQUE: Routine protocol CT abdomen and pelvis. IV Contrast: None.. Oral contrast: None. RADIATION DOSAGE (If Supplied By Facility): CTDIvol = ( 21.03 ) mGy, DLP = ( 1197.81 ) mGycm Individualized dose optimization techniques were used for this CT. COMPARISON: None. LIMITATIONS: None. FINDINGS: LOWER CHEST: Reticular opacities in the lung bases likely scarring. Coronary artery calcifications are noted. LIVER: Grossly unremarkable. GALLBLADDER AND BILIARY TREE: The gallbladder is surgically absent. PANCREAS: Grossly unremarkable. SPLEEN: Grossly unremarkable. ADRENAL GLANDS: Mild nodular thickening of the adrenal glands. KIDNEYS AND URETERS: No calculi demonstrated. No hydronephrosis. PERITONEUM: No free air. No free fluid. BOWEL: Moderate amount of stool distending the rectum. Wall thickening of the sigmoid colon, possibly exaggerated by suboptimal distention, with mild adjacent stranding. No bowel obstruction. APPENDIX: Not identified. VESSELS: Abdominal aorta is normal caliber. REPRODUCTIVE ORGANS: Grossly unremarkable URINARY BLADDER: Grossly unremarkable. ABDOMINAL WALL: Small umbilical hernia contains only fat, no bowel. BONES: No acute abnormalities. Degenerative changes lumbar spine with anterolisthesis at L4-5 CT/Abdomen/Pelvis without Cont IMPRESSION: Wall thickening of the sigmoid colon may be consistent with acute colitis. Stool distended rectum. Electronically Signed: Zamzam Philip MD at 19:29 EDT ,
[2023-10-23] MEDS: Dicyclomine 20 MG/2 ML Vial IM (18:07)
[2023-10-23] MEDS: 0.9% Normal Saline (1000mL) 1,000 ML 999 ML IV (18:07)
[2023-10-23 18:19] LABS: Absolute Neutrophil Count 9.9 X10^3/uL (2.0-7.7); Basophil# 0.04 X10^3/uL; Basophil% 0.3 % (0-1); Hematocrit 39.8 % (37-47); Lymphocyte % 11.9 % (19-41); Mean Corp Hgb Conc 35.2 g/dL (32-36); Mean Corpuscular Hgb 32.6 pg (27.0-32.0); Mean Corpuscular Volume 92.6 fL (81-99); Mean Platelet Vol. 11.6 fl (6.2-12.0); Monocyte# 0.39 X10^3/uL; Monocyte% 3.3 % (0-10); NRBC Flagged by Analyzer 0 % (0-5); Neutrophil # 9.85 X10^3/uL (2.7-7.7); Neutrophil % 84.2 % (47-70); Platelet Count 362 K/mm3 (150-450); RBC Distribution Width CV 13.2 % (11.6-14.6); RBC Distribution Width SD 44.6 fl (35.1-43.9); White Blood Count 11.7 K/mm3 (4.4-11.0)
[2023-10-23 18:41] LABS: Anion Gap 13 (5-15); BUN 43 mg/dL (7-18); BUN/Creat Ratio 29.3 RATIO (10-20); Calcium,Total 9.5 mg/dL (8.5-10.1); Chloride 91 mmol/L (98-107); Creatinine, Serum 1.47 mg/dL (0.55-1.02); EST Glomerular Filtration Rate 38 mL/min (>60); Est Glom Filt Rate - Afr Amer 46 mL/min (>60); Glucose 606 mg/dL (74-106); Potassium 4.1 mmol/L (3.5-5.1); Sodium Level 128 mmol/L (136-145)
[2023-10-23] MEDS: Insulin Lispro 100 UNIT/ML INSULN.PEN 15 UNIT SC (19:08)
[2023-10-23] MEDS: metroNIDAZOLE 500 MG Tablet PO (20:35)
[2023-10-23] MEDS: Ciprofloxacin 500 MG Tablet PO (20:35)
[2023-10-23 20:50] VITALS: BP 100/59; PULSE 84; RESP 18; TEMP 36.6; O2SAT 98
[2023-10-23 21:00] LABS: Bedside Glucose 405 mg/dL (74-106)
[2023-10-23] MEDS: Morphine 4 MG/ML Syringe IV (21:07)
== END 2023-10-23 21:27 | disposition home or self-care (01) ==
PROVIDERS: Emergency Provider Emergency Medicine; PCP Family Medicine; Visit Provider Emergency Medicine
DX: K52.9 Noninfective gastroenteritis and colitis, unspecified (principal); Z79.4 Long term (current) use of insulin; E11.9 Type 2 diabetes mellitus without complications; K59.00 Constipation, unspecified; I10 Essential (primary) hypertension; Z79.899 Other long term (current) drug therapy; Z79.84 Long term (current) use of oral hypoglycemic drugs; Z79.85 Long-term (current) use of injectable non-insulin antidiabetic drugs; Z90.49 Acquired absence of other specified parts of digestive tract
CPT/HCPCS: 74176; 80048; 82962; 85025; 96361; 96372; 96374; 99285; J7030; A4216

== ENCOUNTER 2023-11-08 11:58 | Emergency (ER) | payer MEDICARE, SELFPAY ==
[2023-11-08 12:00] VITALS: BP 154/73; PULSE 73; RESP 19; TEMP 35.2; O2SAT 100
--- NOTE | 2023-11-08 12:28 | EX.ED.VIS.EY ---
HPI History of Present Illness Chief Complaint: Eye Problem Informant: patient Narrative Narrative: 63-year-old female presenting with left high pain, redness, photophobia as well as a headache. She has had this for a week. 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 She states it has not helped anything. She has had mild rhinorrhea but denies any significant nasal congestion, fevers or chills, changes in her hearing. The pain is starting to radiate to her left ear as of the last 24 hours but she denies any otorrhea. She states she has foreign body sensation in the left thigh but has no history of an injury that she knows of. She does not wear contacts but she does wear eyeglasses. 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 She does recall that having pain. She has MS, she has infrequent flareups and the last flareup she had was a couple years ago. When she did see ophthalmology it was at the [facility] she cannot remember who it was. [facility] Medical History Lives in care home Open wound Insulin dependent diabetes mellitus Uses wheelchair Walker as ambulation aid Dietary restriction History of edema Anxiety Non-smoker Type 2 diabetes mellitus with foot ulcer Diabetes mellitus with diabetic polyneuropathy Hypertension Multiple sclerosis Home Medications ?Medication ?Instructions ?Recorded ?Last Taken ?Type atenolol 100 mg tablet 100 mg PO DAILY 02/22/15 11/08/23 History glimepiride 4 mg tablet 4 mg PO BID 07/01/22 11/08/23 History insulin detemir U-100 100 unit/mL 40 unit subcut QHS 07/01/22 11/07/23 History (3 mL) subcutaneous pen (Levemir FlexPen) tizanidine 2 mg tablet 4 mg PO TID PRN spasms 07/01/22 12/02/22 History Lactobacillus acidophilus 10 100 mmu cells PO DAILY 12/03/22 11/08/23 History billion cell capsule (Probiotic) cholecalciferol (vitamin D3) 125 50 mcg PO DAILY 12/03/22 11/08/23 History mcg (5,000 unit) capsule hydrochlorothiazide 25 mg tablet 25 mg PO DAILY FLUID 12/03/22 11/08/23 History lisinopril 40 mg tablet 10 mg PO DAILY B/P 12/03/22 11/08/23 History melatonin 5 mg capsule 10 mg PO QHS SLEEP 12/03/22 11/08/23 History multivitamin with minerals-folic 1 tab PO DAILY 12/03/22 11/08/23 History acid 120 mcg chewable tablet (Women's Multivitamin Gummies) insulin detemir U-100 100 unit/mL 20 unit subcut DAILY 01/12/23 11/08/23 History (3 mL) subcutaneous pen (Levemir FlexPen) ciprofloxacin HCl 500 mg tablet 500 mg PO BID #14 TABLETS 10/23/23 Unknown Rx doxycycline hyclate 100 mg tablet 100 mg PO BID 11/08/23 11/08/23 History gabapentin 100 mg capsule 100 mg PO TID 11/08/23 11/08/23 History Allergy/AdvReac Type Severity Reaction Status Date / Time amoxicillin trihydrate (From Allergy Rash Verified 11/08/23 12:08 Augmentin) diflunisal (From Dolobid) Allergy Rash Verified 11/08/23 12:08 fish derived Allergy PT UNSURE Verified 11/08/23 12:08 OF REACTION moxifloxacin HCl (From Allergy Rash Verified 11/08/23 12:08 Avelox) potassium clavulanate (From Allergy Rash Verified 11/08/23 12:08 Augmentin) shellfish derived Allergy PT UNSURE Verified 11/08/23 12:08 OF REACTION Sulfa (Sulfonamide Allergy PT UNSURE Verified 11/08/23 12:08 Antibiotics) OF REACTION sulfamethoxazole (From Allergy Rash Verified 11/08/23 12:08 Bactrim) trimethoprim (From Bactrim) Allergy Rash Verified 11/08/23 12:08 Surgical History History of cholecystectomy Hx of Achilles tendon repair History of appendectomy History of cholecystectomy Social History Smoking Status: Never smoker ROS ROS ED Constitutional Constitutional ED: Denies chills or fever(s) Eyes Eyes: Reports as per HPI, blurry vision bilateral (much more prominent in left eye) and eye pain; Denies diplopia ENT ENT ED: Reports ear pain left; Denies nasal congestion, nose pain, rhinorrhea, sore throat, tinnitus or vertigo Respiratory/Chest Respiratory/Chest: Denies cough Gastrointestinal Gastrointestinal: Denies nausea or vomiting Musculoskeletal Musculoskeletal: Denies neck pain Integumentary Denies rash Neurologic Neurologic: Reports headache(s); Denies paresthesias or weakness EXAM Physical Exam Const Vital Signs: 11/08/23 12:00 Temperature 95.3 F L Temperature Source Temporal Pulse Rate 73 Respiratory Rate 19 H Blood Pressure 154/73 H Blood Pressure Mean 100 Pulse Ox 100 Oxygen Delivery Method Room Air Positive well nourished and well developed General Appearance ED: well developed and NAD HEENT HEENT Narrative: No sinus tenderness. TMs normal bilaterally. atraumatic; Negative for tenderness Mouth ED: Yes oral and palatal mucosa normal and Yes lips normal Mouth: oral and palatal mucosa normal and lips normal Eyes PERRL and EOMs intact bilaterally Eyes Narrative: Photophobia left eye. Left eye conjunctival bulbar and palpebral injection without chemosis or discharge. Neck no lymphadenopathy and supple Neuro oriented x3, CN's II-XII intact bilaterally and gait normal Sensorium / Orientation: alert Skin Lesions: no lesions Rashes: no rashes MDM MDM MDM Narrative Medical decision making narrative: Slit lamp exam performed. On gross inspection without staining, I see no corneal ulcers or foreign bodies. There was some irregularity at the central cornea but difficult to tell if this was due to light reflection being that it was centered over the pupil. I stained her eye with fluorescein, there is no focal dye uptake or stippling. The anterior chambers deep and quiet I see no cell or flare or hypopyon or hyphema. After anesthetizing with tetracaine, her pain is relieved and it feels a lot better. I also laid the patient flat and we have a Carlos Alberto-Pen to check pressures, after calibrating it I checked her left eye pressures 3 different episodes, it was 26 twice and 20 for the third time. I discussed all this with Dr. Live, and he agrees it is unlikely to be optic neuritis given that the tetracaine helped her pain, and agrees that this is inconsistent with acute angle-closure glaucoma. Conjunctivitis in the differential, but I do not think likely to be bacterial since there is no discharge. Recommend close outpatient follow-up either this afternoon or tomorrow, patient to call for follow-up. She is comfortable with the plan. Management Discussion w/another healthcare provider: Brick Siding Applicator (radhatho) Discharge Plan Triage Chief Complaint: Eye Problem ED Provider: Morteza Trinidad Dx/Rx/DC Orders Clinical Impression: Acute left eye pain Instructions: ED Conjunctivitis, Viral Prescriptions: No Action atenolol 100 MG tablet 100 mg PO DAILY Patient Comments: PT STATES HAS NOT BEEN TAKING WHILE ON ANTIBIOTICS. BP HAS BEEN LOW WHILE ON ANTIBIOTICS. glimepiride 4 mg Tablet 4 mg PO BID Levemir FlexPen 100 unit/mL (3 mL) insulin pen 40 unit SUBCUT QHS Patient Comments: INJECT 40 UNITSCSUBCUTANEOUSLY DAILY AT BEDTIME tizanidine 2 mg tablet 4 mg PO TID PRN (Reason: spasms) Levemir FlexPen 100 unit/mL (3 mL) insulin pen 20 unit subcut DAILY cholecalciferol (vitamin D3) 125 mcg (5,000 unit) capsule 50 mcg PO DAILY melatonin 5 mg capsule 10 mg PO QHS multivit with min-folic acid [Women's Multivitamin Gummies] 120 mcg tablet,chewable 1 tab PO DAILY Probiotic 10 billion cell capsule 100 mmu cells PO DAILY Patient Comments: PT GETS OTC UNSURE OF STRENGTH lisinopril 40 mg tablet 10 mg PO DAILY Patient Comments: PT STATES HAS NOT BEEN TAKING WHILE ON ANTIBIOTICS. BP HAS BEEN LOW WHILE ON ANTIBIOTICS. hydrochlorothiazide 25 mg tablet 25 mg PO DAILY Patient Comments: TAKE 1 TABLET BY MOUTH EVERY DAY gabapentin 100 mg capsule 100 mg PO TID doxycycline hyclate 100 mg tablet 100 mg PO BID ciprofloxacin HCl 500 mg tablet 500 mg PO BID Qty: 14 0RF Primary Care Provider: Dominguez Vidales Referrals: Marcos Live MD [Med Staff - Active Staff] - As soon as possible (Call for appointment either this afternoon or tomorrow) Dominguez Viadles MD [Primary Care Provider] - Print Language: Georgian Disposition Disposition: Home, Self Care
[2023-11-08] MEDS: Tetracaine 0.5% Ophthalmic Bottle 3 DRP LEFT EYE (12:37)
[2023-11-08] MEDS: Fluorescein 1 MG STRIP 1 STRIP LEFT EYE (12:37)
--- NOTE | 2023-11-08 13:00 | NURSING ---
11/08/23@1230- pt did not bring corrective lens to hospital. pt lives outside of [place] and her elderly mother would have to run and get them. MD aware test cannot be performed, cancel test; no need to run and get corrective lens. pt and family updated.
[2023-11-08 14:00] VITALS: BP 152/76; PULSE 78; RESP 16; O2SAT 98
[2023-11-08 14:54] VITALS: BP 154/72; PULSE 70; RESP 18; TEMP 36.6; O2SAT 99
== END 2023-11-08 14:55 | disposition home or self-care (01) ==
PROVIDERS: Emergency Provider Emergency Medicine; PCP Family Medicine; Visit Provider Emergency Medicine
DX: H57.12 Ocular pain, left eye (principal); G35 Multiple sclerosis; E11.42 Type 2 diabetes mellitus with diabetic polyneuropathy; Z79.4 Long term (current) use of insulin; I10 Essential (primary) hypertension; Z79.84 Long term (current) use of oral hypoglycemic drugs; Z79.899 Other long term (current) drug therapy
CPT/HCPCS: 99282

== ENCOUNTER → 2023-11-10 | Outpatient (CLI) | payer MEDICARE, SELFPAY ==
--- NOTE | 2023-11-10 12:50 | RAD_ITS ---
STUDY: X-RAY CHEST REASON FOR EXAM: Female, 63 years old. Acute and subacute iridocyclitis TECHNIQUE: PA and lateral views of the chest. COMPARISON: 12/03/2022 FINDINGS: Poor inspiration with some bibasilar discoid atelectasis. Slightly elevated right hemidiaphragm which is unchanged. Normal size heart. Normal mediastinum and liz. Normal visualized pulmonary arteries. Normal visualized aortic arch and descending thoracic aorta. Normal visualized thoracic spine. Normal visualized ribs, clavicles, and shoulders. There is no demonstrated abnormality of the visualized soft tissue structures of the upper abdomen. RAD/Chest PA and Lateral IMPRESSION: Poor inspiration with some bibasilar discoid atelectasis. Electronically Signed: Stevie Ortiz MD at 13:56 EDT ,
[2023-11-19 14:12] LABS: Angiotensin Convert Enzyme < 15 U/L (14-82); HLA B27 Negative (.); QNTFERON TB Mitogen Value > 10.00 IU/mL (.); QNTFERON TB Nil Value 0 IU/mL (.); QNTFERON TB1+ Ag Value 0.01 IU/mL (.); QNTFERON TB2+ Ag Value 0 IU/mL (.); QNTIFERON TB Positive Criteria Negative (Negative); Treponema palladium Ab (FTA) Non Reactive (Non Reactive)
== END | disposition home or self-care (01) ==
LOC: LAB 12:26
PROVIDERS: PCP Family Medicine; Referring Provider Ophthalmology; Visit Provider Ophthalmology
DX: H20.00 Unspecified acute and subacute iridocyclitis (principal)
CPT/HCPCS: 36415; 71046; 81374; 82164; 86480; 86780